=== PATIENT | male | born 1945 | race Caucasian/White ===

== ENCOUNTER → 2018-05-31 12:07 | Outpatient (CLI) | payer MEDICARE, SELFPAY ==
--- NOTE | 2018-05-31 12:10 | RAD_ITS ---
STUDY: X-RAY - LUMBAR SPINE REASON FOR EXAM: Male, 72 years old. Lower back pain. Bilateral hip pain. TECHNIQUE: 5 view(s) of the lumbar spine were obtained. COMPARISON: None FINDINGS: Normal lumbar lordosis. There is no substantial scoliosis. There is a normal alignment of the vertebrae. There is diffuse demineralization with multi-level endplate spondylosis. There is multi-level degenerative disc disease with multi-level disc space narrowing. There is no evidence of acute fracture or loss of vertebral axial height. There is no demonstrated spondylolysis of the pars interarticulares. There is atherosclerotic calcification of the abdominal aorta without a demonstrated aneurysm. RAD/L/S Spine Min 4 Views IMPRESSION: Degenerative changes of the lumbar spine without acute fracture or dislocation. Electronically Signed: Eren Finney DO at 20:15 EDT Tel [phone], Service support ,
== END ==
PROVIDERS: Family Provider Family Medicine; PCP Family Medicine; Visit Provider Nurse Practitioner Family
DX: M54.5 Low back pain (principal)
CPT/HCPCS: 72110

== ENCOUNTER → 2018-06-06 11:24 | Outpatient (CLI) | payer MEDICARE, SELFPAY ==
--- NOTE | 2018-06-06 11:31 | RAD_ITS ---
STUDY: X-RAY - LEFT HUMERUS REASON FOR EXAM: Mid humeral pain, fall a few days ago. TECHNIQUE: 2 view(s) of the humerus. COMPARISON: None. FINDINGS: Normal visualized humerus. There is no demonstrated fracture or osseous destructive process with skin folds on the AP views creating lucency overlying the medial aspect of the mid humeral diaphysis but clearly extending past the margins of the humerus. There is no demonstrated soft tissue abnormality. RAD/Humerus min 2 Views IMPRESSION: No demonstrated humeral fracture. Electronically Signed: Storm Guerra MD at 12:30 EDT Tel , Service support ,
== END ==
PROVIDERS: Family Provider Family Medicine; PCP Family Medicine; Visit Provider Family Medicine
DX: M79.602 Pain in left arm (principal)
CPT/HCPCS: 73060

== ENCOUNTER → 2018-11-15 09:01 | Outpatient (CLI) | payer MEDICARE, SELFPAY ==
[2018-11-15 12:32] LABS: Absolute Lymphocyte Count 1.33 X10^3/ul (0.83-4.51); Absolute Neutrophil Count 1.6 X10^3/uL (2.0-7.7); Basophil# 0.01 X10^3/uL; Basophil% 0.3 % (0-1); Eosinophil# 0.12 X10^3/uL; Eosinophils% 3.4 % (0-5); Hematocrit 44.9 % (40-54); Hemoglobin 15.1 g/dl (13.0-16.5); Lymphocyte # 1.33 X10^3/ul (4.0); Lymphocyte % 37.6 % (19-41); Mean Corp Hgb Conc 33.6 g/gl (32-36); Mean Corpuscular Hgb 30.6 pg (27.0-32.0); Mean Corpuscular Volume 91.1 fL (80-94); Mean Platelet Vol. 10.5 fl (6.2-12.0); Monocyte% 14.1 % (0-10); Neutrophil # 1.57 X10^3/uL (2.7-7.7); Neutrophil % 44.3 % (47-70); Platelet Count 202 K/mm3 (150-450); RBC Distribution Width CV 13.8 % (11.6-14.6); RBC Distribution Width SD 45.6 fl (35.1-43.9); Red Blood Count 4.93 M/mm3 (4.6-6.2); White Blood Count 3.5 K/mm3 (4.4-11.0)
[2018-11-15 12:33] LABS: POSITIVE COUNT NO; POSITIVE DIFFERENTIAL NO; POSITIVE MORPHOLOGY NO
[2018-11-15 12:40] LABS: Anion Gap 9 (5-15); BUN 14 mg/dL (7-18); BUN/Creat Ratio 14.8 RATIO (10-20); Calcium,Total 8.8 mg/dL (8.5-10.1); Chloride 110 mmol/L (98-107); Creatinine, Serum 0.95 mg/dL (0.70-1.30); EST Glomerular Filtration Rate 83 mL/min (>60); Est Glom Filt Rate - Afr Amer 100 mL/min (>60); Glucose 92 mg/dL (74-106); Potassium 3.7 mmol/L (3.5-5.1); Sodium Level 143 mmol/L (136-145)
== END ==
PROVIDERS: Family Provider Family Medicine; PCP Family Medicine; Visit Provider Family Medicine
DX: K92.2 Gastrointestinal hemorrhage, unspecified (principal); R53.83 Other fatigue
CPT/HCPCS: 36415; 80048; 85025

== ENCOUNTER → 2018-12-27 09:53 | Outpatient (CLI) | payer MEDICARE, SELFPAY ==
[2018-12-28 16:54] LABS: Giardia Lamblia, Stool EIA Negative (Negative)
== END ==
PROVIDERS: Family Provider Family Medicine; PCP Family Medicine; Referring Provider Family Medicine; Visit Provider Family Medicine
DX: R19.7 Diarrhea, unspecified (principal)
CPT/HCPCS: 82274; 83630; 87329; 87493; 87506

== ENCOUNTER → 2019-03-01 | Outpatient (CLI) | payer MEDICARE, SELFPAY | END | disposition home or self-care (01) | PROVIDERS: Family Provider Family Medicine; PCP Family Medicine; Visit Provider Family Medicine | DX: I10 Essential (primary) hypertension (principal); E78.5 Hyperlipidemia, unspecified; E55.9 Vitamin D deficiency, unspecified ==

== ENCOUNTER → 2019-03-14 08:53 | Outpatient (CLI) | payer MEDICARE, SELFPAY ==
[2019-03-14 12:37] LABS: ALB/GLOB Ratio 1.2 RATIO (0.9-2.4); AST(SGOT) 32 U/L (15-37); Alanine Aminotransfer ALT/SGPT 54 U/L (16-61); Albumin, Serum 3.8 g/dL (3.2-5.0); Alkaline Phosphatase 48 U/L (45-117); Anion Gap 5 (5-15); BUN 14 mg/dL (7-18); BUN/Creat Ratio 16.3 RATIO (10-20); Chloride 109 mmol/L (98-107); Cholesterol 250 mg/dL (200); Creatinine, Serum 0.86 mg/dL (0.70-1.30); EST Glomerular Filtration Rate 93 mL/min (>60); Est Glom Filt Rate - Afr Amer 112 mL/min (>60); Globulin 3.2 g/dL (2.2-4.2); Glucose 87 mg/dL (74-106); High Density Lipoprotein 59 mg/dL; Potassium 3.7 mmol/L (3.5-5.1); Sodium Level 139 mmol/L (136-145); Triglycerides 186 mg/dL; Very Low Density Lipoprotein 37 mg/dL (5-40)
[2019-03-14 12:39] LABS: Vitamin D,25 Hydroxy 35.5 ng/mL (29.95-100.01)
== END ==
PROVIDERS: Family Provider Family Medicine; PCP Family Medicine; Visit Provider Family Medicine
DX: I10 Essential (primary) hypertension (principal); E78.5 Hyperlipidemia, unspecified; E55.9 Vitamin D deficiency, unspecified
CPT/HCPCS: 36415; 80053; 80061; 82306

== ENCOUNTER 2019-06-05 21:48 | Emergency (ER) | payer MEDICARE, SELFPAY ==
[2019-06-05 21:50] VITALS: BP 135/105; PULSE 101; RESP 18; TEMP 36.6; O2SAT 94; BMI 30.7
[2019-06-05 23:02] VITALS: PULSE 86; O2SAT 96
--- NOTE | 2019-06-05 23:27 | ED.DCSUM_ITS ---
- ER Visit Summary Date of Service: 06/05/19 Chief Complaint: Bilateral leg pain History of Present Illness: The patient is a 73 M presenting with bilateral leg pain. Patient states this has been ongoing for the past 3 years. He is scheduled to see a seater assembler in 2 weeks. His primary care physician has been treating him for polymyalgia rheumatica. He was previously taking tramadol he states that this intermittently has helped him but he has run out of this medication. He denies any new injury. He is able to ambulate with pain. He denies fever. Denies chest pain or shortness of breath. Denies other complaints. Physical Examination: Vitals are stable. Patient is afebrile. Alert no acute distress. HEENT exam is unremarkable. Neck is supple. Lungs are clear and equal bilaterally. Heart is regular rate and rhythm. Abdomen is soft nontender nondistended. Extremities are unremarkable. Normal distal pulses Skin is warm and dry. No rash No focal neurologic deficit. Normal strength and sensation Remainder of exam is unremarkable. Emergency Department Course and Treatment: Patient was given morphine, Zofran IV. Pelvis x-ray shows no fracture, acute disease, or significant arthritis. Atherosclerotic calcifications. On reevaluation patient's pain is controlled. He is given a prescription for tramadol. He is advised to follow-up with rheumatology as scheduled. Advised to return to the ED for worsening complai nts. Disposition: Discharge home Impression: Polymyalgia rheumatica This note was generated with [employer] dictation software. It may contain incorrect words, spelling, and punctuation that were not noted in review of the chart prior to signing ED Disposition - Plan for ED Patient: Instructions: Muscle Spasm Prescriptions: traMADol [Ultram] 50 mg PO Q6H PRN PRN 3 Days #20 tab PRN Reason: Pain Prescription Printed Referrals: Thor Eason MD [Primary Care Provider] -
[2019-06-05] MEDS: Morphine 4 MG/ML Syringe IV (23:43)
[2019-06-05] MEDS: Ondansetron 4 MG/2 ML Vial IV (23:43)
--- NOTE | 2019-06-05 23:50 | RAD_ITS ---
HISTORY: bilateral leg swelling and pain for years, patient to see vitreo retinal surgeon soon EXAMINATION/TECHNIQUE: XR Pelvis 1 View COMPARISON: [facility] 10/03/2015 FINDINGS: No fracture, acute disease, or suspicious bony lesion. The SI joints and hip joints appear preserved. Pelvic phleboliths. Radiopaque material at the prostate region compatible with brachytherapy. Atherosclerotic calcifications. RAD/Pelvis 1 or 2 Views IMPRESSION: 1. No fracture, acute disease, or significant arthritis. 2. Atherosclerotic calcifications. at 0023 Reported and signed by: Moisés Johnson MD Electronically Signed: Moisés Johnson, at 0:22 EDT Tel , Service support ,
--- NOTE | 2019-06-06 00:44 | ED.DEP ---
ED Disposition - Plan for ED Patient: Instructions: Muscle Spasm Prescriptions: traMADol [Ultram] 50 mg PO Q6H PRN PRN 3 Days #20 tablet PRN Reason: Pain Referrals: Thor Eason MD [Primary Care Provider] -
[2019-06-06 01:03] VITALS: BP 123/77; PULSE 83; RESP 18; O2SAT 93
== END 2019-06-06 01:04 | disposition home or self-care (01) ==
PROVIDERS: Emergency Provider Emergency Medicine; Family Provider Family Medicine; PCP Family Medicine
DX: M35.3 Polymyalgia rheumatica (principal); Z79.891 Long term (current) use of opiate analgesic
CPT/HCPCS: 72170; 96374; 96375; 99283; A4216; J2405

== ENCOUNTER → 2019-06-28 | Outpatient (CLI) | payer MEDICARE, SELFPAY ==
[2019-06-05 21:50] VITALS: BMI 30.7
== END | disposition home or self-care (01) ==
PROVIDERS: Family Provider Family Medicine; PCP Family Medicine; Referring Provider Dermatology; Visit Provider Dermatology
DX: T81.40XA Infection following a procedure, unspecified, initial encounter (principal)
CPT/HCPCS: 87070; 87077; 87186; 87205

== ENCOUNTER → 2019-07-14 | Outpatient (CLI) | payer MEDICARE, SELFPAY ==
[2019-07-14 13:21] LABS: Thyroid Stim Hormone (TSH) 1.13 uIU/mL (0.358-3.74); Uric Acid 5.9 mg/dL (3.5-7.2)
[2019-07-14 13:22] LABS: Vitamin D,25 Hydroxy 44.8 ng/mL (29.95-100.01)
== END | disposition home or self-care (01) ==
LOC: BFHLAB 08:42
PROVIDERS: Family Provider Family Medicine; PCP Family Medicine; Visit Provider Family Medicine
DX: E55.9 Vitamin D deficiency, unspecified (principal); M10.9 Gout, unspecified; R68.82 Decreased libido; E78.5 Hyperlipidemia, unspecified
CPT/HCPCS: 36415; 82306; 84403; 84443; 84550

== ENCOUNTER → 2019-09-06 | Outpatient (CLI) | payer MEDICARE, SELFPAY ==
--- NOTE | 2019-09-06 12:22 | RAD_ITS ---
STUDY: X-RAY CHEST REASON FOR EXAM: Male, 73 years old. SOB, low grade fever. TECHNIQUE: PA and lateral chest. COMPARISON: None. FINDINGS: Mild scarring in the left base. The lungs are otherwise clear. There is no demonstrated pleural abnormality. Normal size heart. Normal mediastinum and emiliano. Normal visualized pulmonary arteries. Normal visualized aortic arch and descending thoracic aorta. Normal visualized thoracic spine. Normal visualized ribs, clavicles, and shoulders. There is no demonstrated abnormality of the visualized soft tissue structures of the upper abdomen. RAD/Chest PA and Lateral IMPRESSION: Minimal scarring on the left, otherwise negative study. Electronically Signed: Oralia Bay MD at 20:38 EST Tel , Service support ,
== END | disposition home or self-care (01) ==
LOC: MTRAD 12:20
PROVIDERS: Family Provider Family Medicine; PCP Family Medicine; Referring Provider Family Medicine; Visit Provider Family Medicine
DX: J18.9 Pneumonia, unspecified organism (principal)
CPT/HCPCS: 71046

== ENCOUNTER → 2019-12-15 | Outpatient (CLI) | payer MEDICARE, SELFPAY ==
--- NOTE | 2019-12-15 09:01 | RAD_ITS ---
STUDY: X-RAY - ESOPHAGUS (BARIUM SWALLOW) WITH FLUOROSCOPY REASON FOR EXAM: Male, 74 years old. Dysphagia -- had back surgery Oct 03, 2019, swallowing problems started after surgery -- feels like a lump/ and quot; catch and quot; /funny sensation mid throat around C4 TECHNIQUE: 14 view(s) of the esophagus were obtained following swallowing of barium. FLUOROSCOPY TIME (if supplied): (0:30) minutes/seconds COMPARISON: None. FINDINGS: There is no demonstrated esophageal foreign body. There is no demonstrated stricture or mucosal abnormality. Normal gastroesophageal junction, without a demonstrated hiatal hernia. The patient ingested a 12 mm tablet of barium without any difficulty. There is atherosclerotic calcification of the aortic arch with tortuosity of the descending aorta. Normal visualized pulmonary parenchyma. Normal visualized osseous structures of the thorax. RAD/Esophagus Single Contrast IMPRESSION: Normal plain film x-ray examination (barium swallow) of the esophagus. Electronically Signed: Dima Baca, at 10:23 EST , Service support ,
== END | disposition home or self-care (01) ==
LOC: RAD 08:59
PROVIDERS: PCP Family Medicine; Referring Provider Otolaryngology; Visit Provider Otolaryngology
DX: R13.10 Dysphagia, unspecified (principal)
CPT/HCPCS: 74220; 74221

== ENCOUNTER → 2020-06-21 | Outpatient (CLI) | payer MEDICARE, SELFPAY ==
[2020-06-21 15:21] LABS: Absolute Lymphocyte Count 1.51 X10^3/uL (0.83-4.51); Absolute Neutrophil Count 6.1 X10^3/uL (2.0-7.7); Basophil# 0.03 X10^3/uL; Basophil% 0.3 % (0-1); Eosinophils% 2.2 % (0-5); Hematocrit 38.1 % (40-54); Hemoglobin 12.6 g/dL (13.0-16.5); Lymphocyte # 1.51 X10^3/ul (4.0); Lymphocyte % 16.3 % (19-41); Mean Corp Hgb Conc 33.1 g/dL (32-36); Mean Corpuscular Hgb 30.8 pg (27.0-32.0); Mean Corpuscular Volume 93.2 fL (80-94); Mean Platelet Vol. 9.6 fl (6.2-12.0); NRBC Flagged by Analyzer 0 % (0-5); Neutrophil % 65.8 % (47-70); Platelet Count 340 K/mm3 (150-450); RBC Distribution Width CV 13.5 % (11.6-14.6); RBC Distribution Width SD 45.9 fl (35.1-43.9); Red Blood Count 4.09 M/mm3 (4.6-6.2); White Blood Count 9.3 K/mm3 (4.4-11.0)
[2020-06-21 15:39] LABS: Ferritin 522 ng/mL (26-388); Iron 36 ug/dL (65-175)
== END | disposition home or self-care (01) ==
LOC: BFHLAB 11:52
PROVIDERS: PCP Family Medicine; Visit Provider Family Medicine
DX: D64.9 Anemia, unspecified (principal); K92.1 Melena
CPT/HCPCS: 36415; 82728; 83540; 85025

== ENCOUNTER → 2020-07-10 | Outpatient (CLI) | payer MEDICARE, SELFPAY ==
[2020-07-10 12:38] LABS: Ferritin 280 ng/mL (26-388); Iron 67 ug/dL (65-175)
[2020-07-10 12:41] LABS: Absolute Lymphocyte Count 1.27 X10^3/uL (0.83-4.51); Absolute Neutrophil Count 3.3 X10^3/uL (2.0-7.7); Basophil# 0.02 X10^3/uL; Basophil% 0.3 % (0-1); Eosinophil# 0.55 X10^3/uL; Eosinophils% 9.3 % (0-5); Hematocrit 39.2 % (40-54); Hemoglobin 12.5 g/dL (13.0-16.5); Lymphocyte # 1.27 X10^3/ul (4.0); Lymphocyte % 21.5 % (19-41); Mean Corp Hgb Conc 31.9 g/dL (32-36); Mean Corpuscular Hgb 29.1 pg (27.0-32.0); Mean Corpuscular Volume 91.4 fL (80-94); Mean Platelet Vol. 9.9 fl (6.2-12.0); Monocyte# 0.73 X10^3/uL; Monocyte% 12.4 % (0-10); NRBC Flagged by Analyzer 0 % (0-5); Neutrophil # 3.32 X10^3/uL (2.7-7.7); Neutrophil % 56.2 % (47-70); Platelet Count 270 K/mm3 (150-450); RBC Distribution Width SD 47.1 fl (35.1-43.9); Red Blood Count 4.29 M/mm3 (4.6-6.2); White Blood Count 5.9 K/mm3 (4.4-11.0)
== END | disposition home or self-care (01) ==
LOC: BFHLAB 10:31
PROVIDERS: PCP Family Medicine; Visit Provider Family Medicine
DX: D64.9 Anemia, unspecified (principal)
CPT/HCPCS: 36415; 82728; 83540; 85025

== ENCOUNTER → 2020-10-08 13:53 | Outpatient (CLI) | payer MEDICARE, SELFPAY ==
[2020-10-08 15:08] LABS: Absolute Lymphocyte Count 1.91 X10^3/uL (0.83-4.51); Absolute Neutrophil Count 2.3 X10^3/uL (2.0-7.7); Basophil# 0.02 X10^3/uL; Basophil% 0.4 % (0-1); Eosinophil# 0.26 X10^3/uL; Eosinophils% 5.1 % (0-5); Hematocrit 47.8 % (40-54); Hemoglobin 15.8 g/dL (13.0-16.5); Lymphocyte # 1.91 X10^3/ul (4.0); Lymphocyte % 37.2 % (19-41); Mean Corp Hgb Conc 33.1 g/dL (32-36); Mean Corpuscular Hgb 29.5 pg (27.0-32.0); Mean Corpuscular Volume 89.2 fL (80-94); Mean Platelet Vol. 10.2 fl (6.2-12.0); Monocyte% 11.7 % (0-10); NRBC Flagged by Analyzer 0 % (0-5); Neutrophil # 2.33 X10^3/uL (2.7-7.7); Neutrophil % 45.4 % (47-70); Platelet Count 197 K/mm3 (150-450); RBC Distribution Width CV 14.3 % (11.6-14.6); RBC Distribution Width SD 46.1 fl (35.1-43.9); Red Blood Count 5.36 M/mm3 (4.6-6.2); White Blood Count 5.1 K/mm3 (4.4-11.0)
[2020-10-08 16:01] LABS: ALB/GLOB Ratio 1.3 RATIO (0.9-2.4); AST(SGOT) 34 U/L (15-37); Alanine Aminotransfer ALT/SGPT 55 U/L (16-61); Albumin, Serum 3.9 g/dL (3.2-5.0); Alkaline Phosphatase 71 U/L (45-117); Anion Gap 6 (5-15); BUN 18 mg/dL (7-18); BUN/Creat Ratio 19.5 RATIO (10-20); Calcium,Total 9.4 mg/dL (8.5-10.1); Chloride 108 mmol/L (98-107); Cholesterol 180 mg/dL (200); Creatinine, Serum 0.92 mg/dL (0.70-1.30); EST Glomerular Filtration Rate 85 mL/min (>60); Est Glom Filt Rate - Afr Amer 103 mL/min (>60); Glucose 89 mg/dL (74-106); High Density Lipoprotein 54 mg/dL; Potassium 3.9 mmol/L (3.5-5.1); Protein, Total 6.9 g/dL (6.4-8.2); Sodium Level 140 mmol/L (136-145); Triglycerides 123 mg/dL; Uric Acid 4.9 mg/dL (3.5-7.2); Very Low Density Lipoprotein 25 mg/dL (5-40)
[2020-10-08 16:06] LABS: Vitamin D,25 Hydroxy 37.8 ng/mL
== END ==
PROVIDERS: PCP Family Medicine; Visit Provider Family Medicine
DX: I25.10 Atherosclerotic heart disease of native coronary artery without angina pectoris (principal); E55.9 Vitamin D deficiency, unspecified; E78.5 Hyperlipidemia, unspecified; M10.9 Gout, unspecified
CPT/HCPCS: 36415; 80053; 80061; 82306; 84550; 85025

== ENCOUNTER → 2020-11-28 14:16 | Outpatient (CLI) | payer MEDICARE, SELFPAY ==
--- NOTE | 2020-11-28 14:32 | CT_ITS ---
STUDY: CT RIGHT LOWER EXTREMITY REASON FOR EXAM: Right knee osteoarthritis, surgical planning. TECHNIQUE: Transaxial CT imaging of the lower extremity was performed. Coronal and sagittal images were reformatted. Individualized dose optimization techniques were used for this CT. COMPARISON: None. FINDINGS: Knee: Normal medial femoral condyle and medial tibial plateau. There is moderate to severe joint space narrowing of the articular joint space of the medial knee compartment. Normal lateral femoral condyle and lateral tibial plateau. There are minimal marginal osteophytes with preservation of the articular joint space of the lateral knee compartment. There is mild to moderate joint space narrowing of the lateral aspect of the patellofemoral articulation (axial image 331). Normal proximal tibiofibular articulation. There is a small joint effusion. The quadriceps tendon is grossly normal. The patellar tendon is grossly normal. Normal Hoffa''s fat pad. There is vascular calcification. Hip: There are small marginal osteophytes and mild joint space narrowing of the right hip articulation (coronal reconstruction 75). Ankle: Normal tibiotalar, posterior subtalar, talonavicular and calcaneocuboid articulations. CT/Extremity Lower without Contra IMPRESSION: Arthrosis of the medial femorotibial and patellofemoral compartments. Electronically Signed: Storm Guerra MD at 14:56 EST Tel , Service support ,
== END ==
PROVIDERS: PCP Family Medicine; Visit Provider Orthopaedic Surgery
DX: M17.11 Unilateral primary osteoarthritis, right knee (principal)
CPT/HCPCS: 73700

== ENCOUNTER 2020-12-16 07:16 | Observation (INO) | payer MEDICARE, SELFPAY ==
--- NOTE | 2020-11-28 14:39 | EKG12_ITS ---
Test Reason : PRE SURGERY Blood Pressure : / mmHG Vent. Rate : 057 BPM Atrial Rate : 057 BPM P-R Int : 168 ms QRS Dur : 108 ms QT Int : 442 ms P-R-T Axes : 038 -45 035 degrees QTc Int : 430 ms Sinus bradycardia with sinus arrhythmia Left anterior fascicular block Abnormal ECG Confirmed by RL FELICIANO, MOHAN ([id number]), general expeditor DANIEL RIVER ([id number]) on 12/02/2020 10:44:53 AM Referred By: Castillo Michael Confirmed By:MAYELA SHINE MD
[2020-11-28 14:54] LABS: Absolute Lymphocyte Count 2.35 X10^3/uL (0.83-4.51); Absolute Neutrophil Count 2.5 X10^3/uL (2.0-7.7); Basophil# 0.02 X10^3/uL; Basophil% 0.3 % (0-1); Eosinophil# 0.28 X10^3/uL; Eosinophils% 4.7 % (0-5); Hematocrit 47.7 % (40-54); Hemoglobin 15.9 g/dL (13.0-16.5); Lymphocyte # 2.35 X10^3/ul (4.0); Lymphocyte % 39.6 % (19-41); Mean Corp Hgb Conc 33.3 g/dL (32-36); Mean Corpuscular Hgb 29.3 pg (27.0-32.0); Monocyte# 0.77 X10^3/uL; NRBC Flagged by Analyzer 0 % (0-5); Neutrophil % 42.1 % (47-70); Platelet Count 219 K/mm3 (150-450); RBC Distribution Width CV 14.9 % (11.6-14.6); RBC Distribution Width SD 47.6 fl (35.1-43.9); Red Blood Count 5.42 M/mm3 (4.6-6.2); White Blood Count 5.9 K/mm3 (4.4-11.0)
[2020-11-28 15:31] LABS: Anion Gap 3 (5-15); BUN 18 mg/dL (7-18); BUN/Creat Ratio 19.6 RATIO (10-20); Calcium,Total 9.2 mg/dL (8.5-10.1); Chloride 108 mmol/L (98-107); Creatinine, Serum 0.92 mg/dL (0.70-1.30); EST Glomerular Filtration Rate 85 mL/min (>60); Est Glom Filt Rate - Afr Amer 103 mL/min (>60); Glucose 82 mg/dL (74-106); Potassium 3.8 mmol/L (3.5-5.1); Sodium Level 140 mmol/L (136-145)
[2020-12-13 09:41] LABS: International Normalized Ratio 1.2; Prothrombin Time (Protime)PT. 14.3 SECONDS (11.7-14.9)
[2020-12-13 09:42] LABS: Partial Thromboplast Time 27.7 Seconds (24.1-36.2)
[2020-12-13 09:58] LABS: AST(SGOT) 32 U/L (15-37); Alanine Aminotransfer ALT/SGPT 47 U/L (16-61); Albumin, Serum 3.8 g/dL (3.2-5.0); Alkaline Phosphatase 69 U/L (45-117); Bilirubin, Direct 0.16 mg/dL (0.00-0.30); Protein, Total 6.8 g/dL (6.4-8.2)
[2020-12-16] VITALS (13 sets, daily range): BP systolic 83–133; BP diastolic 57–84; PULSE 59–77; RESP 16–18; TEMP 36.5–36.9; O2SAT 95–100; BMI 30.4
[2020-12-16] MEDS: Lactated Ringers 1,000 ML 75 ML IV (06:24)
[2020-12-16] MEDS: Gabapentin 600 MG Tablet PO (06:27)
[2020-12-16] MEDS: Acetaminophen 500 MG Tablet 1000 MG PO ×3 (06:28→20:04)
[2020-12-16 06:35] LABS: Magnesium 2.4 mg/dL (1.6-2.6)
[2020-12-16 06:55] LABS: Bedside Glucose 96 mg/dL (70-110)
[2020-12-16] MEDS: Cefazolin 2 GM in 0.9% Normal Saline 100 ML IV (07:26)
--- NOTE | 2020-12-16 07:30 | KNEE_PTH ---
PATIENT: MYNOR CHIN LOC: MS3 U#:[id number] AGE/SX: 75/M [place] [facility] [place]: Dr. Castillo Michael DO : 1945 BED: 1 DIS: 12/17/2020 SPEC #: [id number] RECD: 12/16/20 09:20 STATUS: KASH REChelsey #: [id number] KRYSTAL: 12/16/20 07:[address]: Castillo Michael DEPT: SURGICAL PATHOLOGY RECD BY: Darya Tate ENTERED: 12/16/20 10:23 SP TYPE: TOTAL KNEE OTHR DR: Dr. Thor Eason MD Tissues: Knee, NOS Procedures: Decalcification bone/plaque Surgery Specimen Level IV HEADER OPERATION: ERAS, total knee replacement robotic arm assist PRE-OP DIAGNOSIS: Primary osteoarthritis TISSUE SUBMITTED: Right knee bone MICROSCOPIC DIAGNOSIS Bone and soft tissue of right knee, total knee resection: Consistent with degenerative joint disease. AM:alejo 12/19/2020 MICROSCOPIC DESCRIPTION Slides are reviewed. GROSS DESCRIPTION Received is one container designated bone and soft tissue right knee. The specimen consists of multiple fragments of yoon-yellow bone measuring in aggregate 15 x 12 x 1.5 cm. Also in the specimen container are multiple fragments of yellow-white soft tissue measuring in aggregate 2 x 2 x 0.8 cm. A number of bony fragments contain articular surfaces consistent with tibial plateau and femoral condyle and displaying prominent osteophyte formation, eburnation, and bone erosion. Stripper Black And White sections are submitted in two cassettes as follows: 1 - soft tissue, 2 - bone after decalcification. / AM:alejo 12/16/20 TC:[facility]: [id number]
--- NOTE | 2020-12-16 08:52 | OP.PCM_ITS ---
Report of Operation Date of Procedure: 12/16/20 Pre-Operative Diagnosis: OA right knee Post-Operative Diagnosis: same Surgery/Procedure Performed:: Right TKR consultant [employer]. vice president [employer] (ex ): Michael De La Cruz Type of Anesthesia:: General/Regional Anesthesiologist: Colin Fernandez Specimen's removed: bone Estimated Blood Loss (mL): 20 cc Fluids Replaced: 1000 cc crystalloid - Admit VTE Documentation VTE Present on Admission: No VTE Mechan Device Prophylaxis: SCD's, Thigh High GINGER Hose VTE Pharm Prophylaxis ordered?: Yes
--- NOTE | 2020-12-16 09:38 | RAD_ITS ---
STUDY: X-RAY - RIGHT KNEE REASON FOR EXAM: Postop right total knee arthroplasty. TECHNIQUE: 2 view(s) of the knee. COMPARISON: CT images 11/20/2020. FINDINGS: There is a right total knee arthroplasty without evidence of complication. There is postoperative gas in the soft tissues and overlying skin jennifer. There is vascular calcification. RAD/Knee 1 or 2 Views IMPRESSION: Uncomplicated right total knee arthroplasty. Electronically Signed: Storm Guerra MD at 10:17 EST Tel , Service support ,
[2020-12-16] MEDS: Lactated Ringers 1,000 ML 125 ML IV (10:16)
[2020-12-16 10:18] LABS: Hematocrit 40.9 % (40-54); Hemoglobin 13.5 g/dL (13.0-16.5); Mean Corpuscular Volume 90.9 fL (80-94); Mean Platelet Vol. 9.7 fl (6.2-12.0); Platelet Count 175 K/mm3 (150-450); RBC Distribution Width CV 14.6 % (11.6-14.6); RBC Distribution Width SD 49.1 fl (35.1-43.9); White Blood Count 5.6 K/mm3 (4.4-11.0)
[2020-12-16 10:35] LABS: Anion Gap 6 (5-15); BUN 16 mg/dL (7-18); BUN/Creat Ratio 14.8 RATIO (10-20); Calcium,Total 8.4 mg/dL (8.5-10.1); Chloride 110 mmol/L (98-107); Creatinine, Serum 1.08 mg/dL (0.70-1.30); EST Glomerular Filtration Rate 71 mL/min (>60); Est Glom Filt Rate - Afr Amer 86 mL/min (>60); Estimated Creatinine Clearance 58.19 ml/min; Glucose 119 mg/dL (74-106); Potassium 3.8 mmol/L (3.5-5.1); Sodium Level 141 mmol/L (136-145)
[2020-12-16] MEDS: Multivitamin (Healthy Eyes) Capsule 1 CAP PO (13:50)
[2020-12-16] MEDS: Lactated Ringers 1,000 ML 100 ML IV (13:52)
[2020-12-16] MEDS: Cefazolin 1 GM/50 ML BAG IV ×2 (17:38→23:10)
[2020-12-16] MEDS: Senna/Docusate Sodium 1 Tablet 2 TABLET PO (21:21)
[2020-12-16] MEDS: Tamsulosin HCl 0.4 MG Capsule PO (21:21)
[2020-12-16] MEDS: Aspirin 81 MG TAB.CHEW PO (21:21)
[2020-12-16] MEDS: Metoprolol Tartrate 25 MG Tablet PO (21:21)
[2020-12-16] MEDS: Atorvastatin Calcium 40 MG Tablet PO (23:11)
[2020-12-16] MEDS: oxyCODONE 5 MG Tablet PO (23:11)
[2020-12-16] MEDS: 0.9% NaCl Peripheral Flush Adult/Peds IV (23:15)
[2020-12-17 02:53] VITALS: BP 114/62; PULSE 78; RESP 16; TEMP 36.8; O2SAT 94
[2020-12-17] MEDS: Acetaminophen 500 MG Tablet 1000 MG PO ×2 (04:11→11:56)
[2020-12-17] MEDS: oxyCODONE 5 MG Tablet PO ×3 (04:11→14:15)
[2020-12-17] MEDS: 0.9% NaCl Peripheral Flush Adult/Peds IV (04:12)
[2020-12-17 05:51] LABS: Hematocrit 39.5 % (40-54); Hemoglobin 12.9 g/dL (13.0-16.5); Mean Corp Hgb Conc 32.7 g/dL (32-36); Mean Corpuscular Hgb 29.6 pg (27.0-32.0); Mean Corpuscular Volume 90.6 fL (80-94); Mean Platelet Vol. 9.6 fl (6.2-12.0); Platelet Count 151 K/mm3 (150-450); RBC Distribution Width CV 14.6 % (11.6-14.6); RBC Distribution Width SD 48.6 fl (35.1-43.9); Red Blood Count 4.36 M/mm3 (4.6-6.2); White Blood Count 6.4 K/mm3 (4.4-11.0)
[2020-12-17 06:21] LABS: Anion Gap 5 (5-15); BUN 17 mg/dL (7-18); BUN/Creat Ratio 18.7 RATIO (10-20); Calcium,Total 8.3 mg/dL (8.5-10.1); Chloride 108 mmol/L (98-107); Creatinine, Serum 0.91 mg/dL (0.70-1.30); EST Glomerular Filtration Rate 86 mL/min (>60); Est Glom Filt Rate - Afr Amer 104 mL/min (>60); Estimated Creatinine Clearance 69.06 ml/min; Glucose 106 mg/dL (74-106); Potassium 3.9 mmol/L (3.5-5.1); Sodium Level 138 mmol/L (136-145)
--- NOTE | 2020-12-17 07:29 | PN.ORTHO_ITS ---
Subjective: Patient sitting at bedside, patient states pain is been well managed. Patient denies any chest pain, shortness of breath, calf pain, nausea vomiting. Patient has no other complaints at this time. Patient states she is ready for discharge home. Objective: Dressings clean dry intact. Negative signs and symptoms of DVT. Patient is afebrile. I did review the labs and vital signs all which were noted in the medical record. Patient neurovascular is otherwise intact. Patient is in no respiratory distress, speaking in full sentences. - Physical Exam Vitals/I&O's: Vital Signs Temp Pulse Resp BP Pulse Ox 98.2 F 78 16 114/62 94 12/17/20 02:53 12/17/20 02:53 12/17/20 02:53 12/17/20 02:53 12/17/20 02:53 Oxygen Flow Rate (L/min) 6 Oxygen Delivery Method Room Air Weight: 93.5 kg Body Mass Index (BMI) 30.4 Intake and Output for Last 24 Hours 12/15/20 12/16/20 12/17/20 23:59 23:59 23:59 Intake Total 3530.5 / 3530.5 55 / 55 Balance 3530.5 / 3530.5 55 / 55 General: Alert, Oriented x3, Cooperative HEENT: PERRLA Oral: Moist Mucosa Neurological: Cranial nerves II-XII grossly intact Psych/Mental Status: Normal Affect, Alert and oriented to time, place, person, mood and affect Laboratory Results 12/16/20 10:10: WBC 5.6, RBC 4.50 L, Hgb 13.5, Hct 40.9, MCV 90.9, MCH 30.0, MCHC 33.0, RDW Std Deviation 49.1 H, RDW Coeff of Benjamin 14.6, Plt Count 175, MPV 9.7 12/16/20 10:10: Sodium 141, Potassium 3.8, Chloride 110 H, Carbon Dioxide 25.0, Anion Gap 6, BUN 16, Creatinine 1.08, Estim Creat Clear Calc 58.19, Est GFR (MDRD) Af Amer 86, Est GFR (MDRD) Non-Af 71, BUN/Creatinine Ratio 14.8, Glucose 119 H, Calcium 8.4 L 12/17/20 05:35: WBC 6.4, RBC 4.36 L, Hgb 12.9 L, Hct 39.5 L, MCV 90.6, MCH 29.6, MCHC 32.7, RDW Std Deviation 48.6 H, RDW Coeff of Benjamin 14.6, Plt Count 151, MPV 9.6 12/17/20 05:35: Sodium 138, Potassium 3.9, Chloride 108 H, Carbon Dioxide 25.0, Anion Gap 5, BUN 17, Creatinine 0.91, Estim Creat Clear Calc 69.06, Est GFR (MDRD) Af Amer 104, Est GFR (MDRD) Non-Af 86, BUN/Creatinine Ratio 18.7, Glucose 106, Calcium 8.3 L Current Medications Acetaminophen (Acetaminophen 500 Mg Tablet) 1,000 mg PO Q8H [facility] Last Admin: 12/17/20 04:11 Dose: 1,000 mg Documented by: Allopurinol (Allopurinol 100 Mg Tablet) [facility] Aspirin (Aspirin 81 Mg Tab.Chew) 81 mg PO BID [facility] Last Admin: 12/16/20 21:21 Dose: 81 mg Documented by: Atorvastatin Calcium (Atorvastatin Calcium 40 Mg Tablet) 40 mg PO QHS [facility] Last Admin: 12/16/20 23:11 Dose: 40 mg Documented by: Cholecalciferol (Cholecalciferol (Vit D3) 1,000 Unit (25mcg)) 5,000 unit PO DAILY [facility] Lactated Ringer's () 1,000 mls @ 100 mls/hr IV .Q10H [facility] Last Admin: 12/17/20 04:59 Dose: Not Given Documented by: Metoprolol Tartrate (Metoprolol Tartrate 25 Mg Tablet) 25 mg PO BID [facility] Last Admin: 12/16/20 21:21 Dose: 25 mg Documented by: Multivitamins/Minerals (Multivitamin (Healthy Eyes) Capsule) 1 capsule PO DAILY [facility] Last Admin: 12/16/20 13:50 Dose: 1 capsule Documented by: Ondansetron HCl (Ondansetron 4 Mg/2 Ml Vial) 4 mg IV Q8H PRN PRN PRN Reason: NAUSEA Oxycodone HCl (Oxycodone 5 Mg Tablet) 5 - 10 mg PO Q4H PRN PRN PRN Reason: Pain Score 4-10 Last Admin: 12/17/20 04:11 Dose: 10 mg Documented by: Promethazine HCl (Promethazine 25 Mg/Ml Syringe) 12.5 mg IM Q6H PRN PRN; Protocol PRN Reason: NAUSEA/VOMITING Senna/Docusate Sodium (Senna/Docusate Sodium 1 Tablet) 2 tablet PO BID [facility] Last Admin: 12/16/20 21:21 Dose: 2 tablet Documented by: Sodium Chloride (0.9% Nacl Peripheral Flush Adult/Peds) 5 - 15 ml IV UD PRN PRN Reason: SALINE FLUSH Last Admin: 12/17/20 04:12 Dose: 10 ml Documented by: Sodium Chloride (0.9% Saline Lock 10 Ml Syringe) 10 - 40 ml IV UD PRN PRN Reason: SALINE FLUSH Tamsulosin HCl (Tamsulosin Hcl 0.4 Mg Capsule) 0.4 mg PO QHS [facility] Last Admin: 12/16/20 21:21 Dose: 0.4 mg Documented by: Medical Necessity - Tobacco Use Smoking Status: Never smoker Assessment/Plan Status post right total knee arthroplasty Plan 1. Continue all pain medications as prescribed 2. Continue physical therapy weight-bear as tolerated with walker. 3. Aspirin 81 mg 1 p.o. every 12 hours x30 days for postop DVT prophylaxis 4. Encourage incentive spirometry 5. Continue physical therapy on outpatient basis 6. Discharge home today after p.m. therapy 7. Follow-up as scheduled with Lavelle De La Cruz PA-C
--- NOTE | 2020-12-17 07:36 | PCM.DC.TKR ---
Discharge Diet: No Restrictions Discharge Activity: May Not Drive, May Shower, Use Walker May shower in (days): 2 Ice area for (Minutes): 20 - each hour while awake. Weight Bearing Status: Weight bearing as tolerated Elevate: Operative Extremity Additional Activity Instructions:: Wear elastic stockings for 2 weeks after your surgery. Call your doctor if your incision/area has: Continuous Slow Oozing, Sudden Increased Bleeding, Increased Pain/ Swelling, Increased Redness, Foul Smelling Discharge Call your doctor if you observe: Fever of 101 or Higher, Coldness, Increased Pain - in extremity, Numbness or Tingling, Change in Color, Calf discomfort, Uncontrolled pain Change Dressing in (Days):: 1 - and daily as needed. Cleanse incision/area with: Soap & Water Allergies/Adverse Reactions: Allergies shellfish derived Allergy (Verified 12/16/20 06:03) Pain in joints ORGAN MEATS Adverse Reaction (Uncoded 12/16/20 06:03) Pain in joints Medications to take at Discharge Allopurinol [Zyloprim] 100 mg PO DAILYCM 07/07/15 Vits A,C,E/Lutein/Minerals [Ocuvite with Lutein Tablet] 1 each PO DAILY 07/07/15 Co Q10 200 [Co Q-10] 100 mg PO DAILY 07/15/16 Tamsulosin HCl [Flomax] 0.4 mg PO QHS 07/15/16 Cholecalciferol (Vitamin D3) [Vitamin D3] 5,000 unit PO DAILY 06/05/19 Atorvastatin Calcium 40 mg PO DAILY 12/02/20 Metoprolol Tartrate 25 mg PO BID 12/02/20 Acetaminophen [Tylenol] 1,000 mg PO Q8H #90 tab 12/17/20 Aspirin [Aspirin, Baby] 81 mg PO BID #60 tab.chew 12/17/20 Oxycodone [Oxyir] 5 - 10 mg PO Q4H PRN PRN 7 Days #84 tablet 12/17/20 Senna/Docusate Sodium [Senokot-S] 2 tablet PO BID tablet 12/17/20 The following prescriptions were given: Aspirin [Aspirin, Baby] 81 mg PO BID #60 tab.chew Transmission Status: Pending to [facility] Oxycodone [Oxyir] 5 - 10 mg PO Q4H PRN PRN 7 Days #84 tablet PRN Reason: Pain Score 4-10 Transmission Status: Sent to [facility] Acetaminophen [Tylenol] 1,000 mg PO Q8H #90 tab Transmission Status: Pending to [facility] Primary Care Physician: Thor Eason MD [Primary Care Provider] - Test Results: Test results from this visit will be discussed in further detail at your follow-up appointment, if applicable. Please Follow Up With: Michael De La Cruz PA-C When: as scheduled (see pink sheet)
[2020-12-17 08:20] VITALS: O2SAT 98
[2020-12-17 08:38] VITALS: BP 128/81; PULSE 76
[2020-12-17] MEDS: Aspirin 81 MG TAB.CHEW PO (08:38)
[2020-12-17] MEDS: Multivitamin (Healthy Eyes) Capsule 1 CAP PO (08:38)
[2020-12-17] MEDS: Allopurinol 100 MG Tablet PO (08:38)
[2020-12-17] MEDS: Metoprolol Tartrate 25 MG Tablet PO (08:38)
[2020-12-17] MEDS: Senna/Docusate Sodium 1 Tablet 2 TABLET PO (08:39)
[2020-12-17 09:00] VITALS: BP 128/81; PULSE 76; RESP 18; TEMP 36.6; O2SAT 97
--- NOTE | 2020-12-17 09:50 | CASEMGMT ---
ASIYA HERNANDEZ Face to Face with patient for initial transition planning/care coordination assessment. ASIYA HERNANDEZ introduced self and role at [facility]. Patient sitting in chair, alert and oriented. Patient willing to participate in assessment and is able to answer all questions appropriately. Care providers, pharmacy, and demographics verified. Patient wishes to discharge home, and is setup with [facility] for outpatient therapy. Patient states he has no further needs or concerns at this time. CM to follow for discharge planning needs that may arise. PCP: Yumi Specialists: Alec, ortho; Karen, road advisor [facility]: yes Living Will/HPOA: yes, Lolita Forrest HPOA LNOK: Living Arrangements: Patient lives with in a single story home with 2 steps and grab bar to enter the home. Patient states he is independent at home prior to surgery Transportation: DME/HHC: Patient states he has raised toilet, grab bars, walker, and rollator at home. Patient states he is setup with [facility] for home therapy. ASIYA HERNANDEZ called [facility] to confirm setup, Delmi at [facility] requested discharge instructions. ASIYA HERNANDEZ faxed discharge instructions to [facility]. Disposition Plan: Patient to discharge home with [facility], family support, and follow-up plans in place. Daily HOLMAN, RN, CM
--- NOTE | 2020-12-17 10:58 | PHA.DC.MC ---
Pharmacy Service has performed discharge medication reconciliation and counseling for this patient. 1. ACETAMINOPHEN 1000MG PO Q8H 2. ASPIRIN 81MG PO BIDCM 3. OXYCODONE 5-10MG PO Q4H PRN PAIN 4-10 4. SENNA/DOCUSATE 2T PO BID The patient's discharge medication list was reviewed for discrepancies and discrepancies were resolved. Home Medications Allopurinol [Zyloprim] 100 mg PO DAILYCM 07/07/15 Vits A,C,E/Lutein/Minerals [Ocuvite with Lutein Tablet] 1 each PO DAILY 07/07/15 Co Q10 200 [Co Q-10] 100 mg PO DAILY 07/15/16 Tamsulosin HCl [Flomax] 0.4 mg PO QHS 07/15/16 Cholecalciferol (Vitamin D3) [Vitamin D3] 5,000 unit PO DAILY 06/05/19 Atorvastatin Calcium 40 mg PO DAILY 12/02/20 Metoprolol Tartrate 25 mg PO BID 12/02/20 Acetaminophen [Tylenol] 1,000 mg PO Q8H #90 tab 12/17/20 Aspirin [Aspirin, Baby] 81 mg PO BID #60 tab.chew 12/17/20 Oxycodone [Oxyir] 5 - 10 mg PO Q4H PRN PRN 7 Days #84 tab 12/17/20 Senna/Docusate Sodium [Senokot-S] 2 tab PO BID tab 12/17/20 The patient was counseled on the following discharge medications and changes in medications for homegoing were reviewed. The Reason for Use, instructions for use, and potential side effects were reviewed for all new medications. The patient's questions regarding all of their medications were answered. The patient was able to verbally demonstrate an understanding of their discharge medications.
[2020-12-17 14:00] VITALS: BP 117/85; PULSE 85; RESP 18; TEMP 36.6; O2SAT 97
--- NOTE | 2020-12-17 14:17 | CASEMGMT ---
ASIYA HERNANDEZ in to discuss PEREZ form with patient. RN DAVID explained PEREZ form to patient, patient voiced understanding. Patient signed PEREZ form and filed in chart. Patient provided with copy of signed PEREZ form. Patient had no further questions or concerns at this time.
[2020-12-17 14:20] VITALS: BP 117/85; PULSE 85; RESP 18; TEMP 36.6; O2SAT 97
== END 2020-12-17 14:15 | disposition home or self-care (01) ==
LOC: SDC 07:49 → MS3 07:49
PROVIDERS: Anesthesiology; Admitting Provider Orthopaedic Surgery; PCP Family Medicine; Referring Provider Orthopaedic Surgery; Visit Provider Orthopaedic Surgery
PROC: 0SRC0JZ Replacement of Right Knee Joint with Synthetic Substitute, Open Approach (ICD-10-PCS; CPT 27447; principal; 2020-12-16 07:00)
DX: M17.11 Unilateral primary osteoarthritis, right knee (principal); E78.00 Pure hypercholesterolemia, unspecified; I10 Essential (primary) hypertension; R00.1 Bradycardia, unspecified; I44.4 Left anterior fascicular block; G25.81 Restless legs syndrome; M10.9 Gout, unspecified; Z20.828 Contact with and (suspected) exposure to other viral communicable diseases; Z86.711 Personal history of pulmonary embolism; Z79.899 Other long term (current) drug therapy; Z79.82 Long term (current) use of aspirin; Z87.19 Personal history of other diseases of the digestive system
CPT/HCPCS: 01402; 27447; 64447; S2900; 36415; 73560; 80048; 80076; 82962; 83735; 85025; 85027; 85610; 85730; 87081; 87426; 88305; 88311; 93005; 94762; 96361; 96365; 96366; 97110; 97116; 97162; 97166; 97530; 97535; 99218; C1776; C9803; J7120; A4216; G0378; G0379

== ENCOUNTER 2021-01-29 10:00 | Outpatient (RCR) | payer MEDICARE, SELFPAY ==
[2020-12-16 10:54] VITALS: BMI 30.4
[2021-01-15 09:56] VITALS: BP 134/78; PULSE 80; RESP 16; TEMP 36; BMI 27.4
--- NOTE | 2021-01-15 10:53 | HP.PCM_ITS ---
(1) Dehiscence of surgical wound Status: Acute Qualifiers: Encounter type: initial encounter Qualified Code(s): T81.31XA - Disruption of external operation (surgical) wound, not elsewhere classified, initial encounter Code(s): T81.31XA - Disruption of external operation (surgical) wound, not elsewhere classified, initial encounter (2) Non-healing surgical wound Status: Acute Qualifiers: Encounter type: initial encounter Qualified Code(s): T81.89XA - Other complications of procedures, not elsewhere classified, initial encounter Code(s): T81.89XA - Other complications of procedures, not elsewhere classified, initial encounter (3) Infected wound Status: Acute Code(s): T14.8XXA - Other injury of unspecified body region, initial encounter; L08.9 - Local infection of the skin and subcutaneous tissue, unspecified (4) Edema of right lower leg Status: Acute Code(s): R60.0 - Localized edema History of Present Illness Date of Service: 01/15/21 Chief Complaint: Follow-up on a postop robotic right knee open wound that dehisced History of Wound: 75-year-old white male history of right total knee done and December 16 and then the robotic area just below the knee reopened about a week later patient has been told to use antibiotic ointment and hydrogen peroxide for cleaning , and it is not healing. Referred here from [facility]. Past Medical History Allergies/Adverse Reactions: Allergies shellfish derived Allergy (Verified 01/15/21 10:08) Pain in joints ORGAN MEATS Adverse Reaction (Uncoded 12/16/20 06:03) Pain in joints Home Medications: Ambulatory Orders Medication Instructions Recorded Allopurinol [Zyloprim] 100 mg PO DAILYCM 07/07/15 Vits A,C,E/Lutein/Minerals 1 each PO DAILY 07/07/15 [Ocuvite with Lutein Tablet] Tamsulosin HCl [Flomax] 0.4 mg PO QHS 07/15/16 Cholecalciferol (Vitamin D3) 5,000 unit PO DAILY 06/05/19 [Vitamin D3] Atorvastatin Calcium 40 mg PO DAILY 12/02/20 Metoprolol Tartrate 25 mg PO BID 12/02/20 Aspirin [Aspirin, Baby] 81 mg PO BID #60 tab.chew 12/17/20 Acetaminophen [Tylenol] 650 mg PO Q8H PRN 01/15/21 L.acidoph,Paracasei, B.lactis 1 each PO DAILY 01/15/21 [Probiotic] Lives: Spouse/ Significant Other Smoking Status: Never smoker Tobacco Use: Non-smoker Alcohol: None Drugs: None Review of Systems Constitutional: Denies: Chills, Fever Eyes: Denies: Blurred vision, Drainage, Pain HEENT: Denies: Difficulty Hearing, Difficulty Swallowing, Sore Throat, Visual Changes Cardiovascular: Denies: Chest Pain, Palpitations, Syncope Respiratory: Denies: Cough, Shortness of Breath Gastrointestinal: Denies: Abdominal Pain, Nausea, Vomiting Genitourinary: Denies: Dysuria, Frequency Musculoskeletal: Denies: Joint Pain, Muscle pain Skin: Reports: - - Open wound right mancilla. Denies: Jaundice, Rash Neurological: Denies: Balance problems, Change in Speech, Difficulty swallowing, Focal weakness Psychiatric: Denies: Anxiety, Depression Endocrine: Denies: Change in Body Habitus Hematologic/ Lymphatic: Denies: Adenopathy - Physical Exam Vital Signs Temp Pulse Resp BP 96.8 F L 80 16 134/78 H 01/15/21 09:56 01/15/21 09:56 01/15/21 09:56 01/15/21 09:56 General: Oriented x3, Cooperative, Well developed HEENT: Atraumatic, PERRLA Oral: Moist Mucosa Neck: Supple, No JVD Lungs: Clear to auscultation, Normal air movement Cardiovascular: Regular rate, Regular Rhythm Abdomen: Bowel Sounds Present, Soft, Non Tender, No Hepato-splenomegaly Extremities: No clubbing, No edema Skin: Ulcer/ Wound - Right mancilla dehisced wound from robotic surgery of a total knee on the right Wound Measurements and Assessment WC - Nurse 1 - General Ulcer Measurement Start: 01/15/21 09:55 Freq: Status: Active Protocol: Activity Type Activity Date Activity User E-Sign Co-Sign Detail Recorded Client Recorded Date Recorded By Document 01/15/21 09:56 [facility] [id number] 01/15/21 10:06 [facility] 01/15/21 09:56 Wound Center Nurse 1 [Ulcer Assessment] #1- R MANCILLA -Combined with other wound No -Current Size (cm) - Length 1.5 -Current Size (cm) - Width 1 -Current Size (cm) - Depth 0.2 -Total Square Cm 1.5 -Date of Last Picture (Recall this 01/15/21 field) -Photo Taken Yes -Epithelialization None Present -Tunneling No -Undermining/Tunneling No -Circular Undermining No -Exudate Amt Small -Exudate Type Serosanguineous -Wound Margin Distinct, Outline Attached -Granulation Amt Small (1-33%) -Granulation Quality Red -Slough/Fibrin Yes -Necrosis Amt Large (67-100%) -Necrotic Tissue Type Adherent Slough -Texture (Yuly-wound Skin Appearance) Assessed, Scarring -Moisture (Yuly-wound Skin Appearance Assessed ) -Color (Yuly-wound Skin Appearance) Assessed -Temperature (Yuly-wound Skin No Abnormality Appearance) (Pt Warm) -Tenderness on Palpation (Yuly-wound No Skin Appearance) -Ulcer Cleansing Rinsed/ Irrigated with Saline -Foul Odor after Cleansing No -Anesthetic Used 5% Lidocaine Gel [Edema Assessment] -Right Calf (cm) 37 -Right Ankle (cm) 24 -Left Calf (cm) 36 -Left Ankle (cm) 23 WC - Nurse 2 - General Ulcer CM Notes Start: 01/15/21 09:55 Freq: Status: Active Protocol: Activity Type Activity Date Activity User E-Sign Co-Sign Detail Recorded Client Recorded Date Recorded By Document 01/15/21 10:21 MW [id number] 01/15/21 10:24 MW 01/15/21 10:21 Wound Center Nurse 2 [Procedure/Treatment] #1- R MANCILLA -Time 10:22 -Correct Patient Yes -Correct Side, Site, Position Yes -Correct Procedure Yes -Procedure Performed Yes -Type of Procedure Debridement -Clinical Debridement Subcutaneous -Tissue Removed Subcutaneous -Post Debridement (cm) - Length 1.1 -Post Debridement (cm) - Width 1.1 -Post Debridement (cm) - Depth 0.3 -Total Square (Post) (cm) 1.21 -Area of Debridement (cm) - Length 1.1 -Area of Debridement (cm) - Width 1.1 -Total Square (Area) (cm) 1.21 -Tunneling No -Undermining/Tunneling No -Circular Undermining No -Wound/Ulcer Outcome Not Healed -Ulcer Cleansing Rinsed/ Irrigated with Saline -Foul Odor after Cleansing No -Bioengineered Tissue No -Bleeding Controlled with Pressure -Offloading No -Debridement - Subq, 1st 20sq cm Yes [See Physician Procedure note for Specifics] Pain Scale: 0-10 Numeric [Pain] -Is Patient Pain Free? 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 Yes - Visit Discharge [Visit Discharge Information] -Discharge Condition Stable -Ambulatory Status Ambulatory -Transportation Private Auto Musculoskeletal: No Tenderness to Palpation of Joints or Extremities Lymphatic: No Cervical, Supraclavicular, or Inguinal Adenopathy Neurological: Cranial nerves II-XII grossly intact, Neuro grossly intact Psych/Mental Status: Normal Affect, Appropriate Debridement Note Post-Debridement Measurements/Treatment - Nurse 2 - General Ulcer CM Notes Start: 01/15/21 09:55 Freq: Status: Active Protocol: Activity Type Activity Date Activity User E-Sign Co-Sign Detail Recorded Client Recorded Date Recorded By Document 01/15/21 10:21 [id number] 01/15/21 10:24 MW 01/15/21 10:21 Wound Center Nurse 2 #1- R MANCILLA -Time 10:22 -Correct Patient Yes -Correct Side, Site, Position Yes -Correct Procedure Yes -Procedure Performed Yes -Type of Procedure Debridement -Clinical Debridement Subcutaneous -Tissue Removed Subcutaneous -Post Debridement (cm) - Length 1.1 -Post Debridement (cm) - Width 1.1 -Post Debridement (cm) - Depth 0.3 -Total Square (Post) (cm) 1.21 -Area of Debridement (cm) - Length 1.1 -Area of Debridement (cm) - Width 1.1 -Total Square (Area) (cm) 1.21 -Tunneling No -Undermining/Tunneling No -Circular Undermining No -Wound/Ulcer Outcome Not Healed -Ulcer Cleansing Rinsed/ Irrigated with Saline -Foul Odor after Cleansing No -Bioengineered Tissue No -Bleeding Controlled with Pressure -Offloading No -Debridement - Subq, 1st 20sq cm Yes Pain Scale: 0-10 Numeric Is Patient Pain Free? Yes - Nurse 3 - General Ulcer D/C NN Start: 01/15/21 09:55 Freq: Status: Active Protocol: Activity Type Activity Date Activity User E-Sign Co-Sign Detail Recorded Client Recorded Date Recorded By Document 01/15/21 10:29 [facility] [id number] 01/15/21 10:34 [facility] 01/15/21 10:29 Wound Care Nurse 3 #1- R MANCILLA -Ulcer Cleansing Rinsed/ Irrigated with Saline -Foul Odor after Cleansing No -Primary Dressing Applied Aquacel Extra -Other Dressing DRSG PER Robin BONILLA LPN -Primary Dressing Covered/Secured with Dry Gauze, Secured with Tape -Aquacel Extra 1 Right -Tubular Bandage Double Layer -Size of Tubigrip Used Size E -Size E ($) 1 Treatment Response Procedure Tolerated Well Pain Scale: 0-10 Numeric Is Patient Pain Free? Yes - Visit Discharge Discharge Condition Stable Ambulatory Status Ambulatory Transportation Private Auto Wound debrided: Right mancilla wound Type of Debridement: Excisional debridement Anesthesia Used: 5% Lidocaine Gel Depth: Down to and including healthy tissue, in the subcutaneous layer Percentage of wound debrided: 100 Instrument Used: 5mm curette Tissue Removed: Devitalized tissue and slough Severity: Fat Layer Exposed Amount of bleeding with debridement: Mild Bleeding Controlled with: Compression and gauze Patient tolerated procedure well Assessment/Plan Ply for epifix to wound base Active Problems Dehiscence of surgical wound (Acute) Non-healing surgical wound (Acute) Infected wound (Acute) Edema of right lower leg (Acute) Assessment: His surgical wound right mancilla. Infected wound right mancilla. Edema right lower leg Plan: Wash right leg with antibacterial soap. Apply Aquacel extra to wound base moistened with water cover with Adaptic then gauze tape. Double layer Tubigrip to right leg. Follow-up in 2 weeks
[2021-01-29 10:15] VITALS: BP 114/67; PULSE 57; TEMP 36.4; BMI 27.4
--- NOTE | 2021-01-29 11:41 | PCM.WC.PN ---
(1) Dehiscence of surgical wound Status: Acute Qualifiers: Encounter type: subsequent encounter Qualified Code(s): T81.31XD - Disruption of external operation (surgical) wound, not elsewhere classified, subsequent encounter Code(s): T81.31XA - Disruption of external operation (surgical) wound, not elsewhere classified, initial encounter (2) Non-healing surgical wound Status: Acute Qualifiers: Encounter type: subsequent encounter Qualified Code(s): T81.89XD - Other complications of procedures, not elsewhere classified, subsequent encounter Code(s): T81.89XA - Other complications of procedures, not elsewhere classified, initial encounter (3) Infected wound Status: Acute Code(s): T14.8XXA - Other injury of unspecified body region, initial encounter; L08.9 - Local infection of the skin and subcutaneous tissue, unspecified (4) Edema of right lower leg Status: Acute Code(s): R60.0 - Localized edema (5) Non-pressure ulcer of right lower extremity with fat layer exposed Status: Acute Code(s): L97.912 - Non-pressure chronic ulcer of unspecified part of right lower leg with fat layer exposed Type of Wound Date of Service: 01/29/21 Chief Complaint: Follow-up on a postop robotic right knee open wound that dehisced History of Wound: 75-year-old white male history of right total knee done and December 16 and then the robotic area just below the knee reopened about a week later patient has been told to use antibiotic ointment and hydrogen peroxide for cleaning , and it is not healing. Referred here from [facility]. Progress of Wound: Right mancilla wound still open with slough. We will reapply for epifix. Sign of infection cultures came back negative. - Physical Exam Vital Signs Temp Pulse Resp BP 97.5 F L 57 L 16 114/67 01/29/21 10:15 01/29/21 10:15 01/15/21 09:56 01/29/21 10:15 General: Oriented x3, Cooperative, Well developed HEENT: Atraumatic, PERRLA Oral: Moist Mucosa Neck: Supple, No JVD Lungs: Clear to auscultation, Normal air movement Cardiovascular: Regular rate, Regular Rhythm Abdomen: Bowel Sounds Present, Soft, Non Tender, No Hepato-splenomegaly Extremities: No clubbing, No edema Skin: Ulcer/ Wound - Right mancilla surgical wound from robotics surgery nonhealing nonpressure wound Wound Measurements and Assessment WC - Nurse 1 - General Ulcer Measurement Start: 01/15/21 09:55 Freq: Status: Active Protocol: Activity Type Activity Date Activity User E-Sign Co-Sign Detail Recorded Client Recorded Date Recorded By Document 01/29/21 10:15 KR [id number] 01/29/21 10:16 KR 01/29/21 10:15 Wound Center Nurse 1 [Ulcer Assessment] #1- R MANCILLA -Current Size (cm) - Length 1 -Current Size (cm) - Width 1 -Current Size (cm) - Depth 0.2 -Total Square Cm 1 -Exudate Amt Small -Exudate Type Serosanguineous -Wound Margin Distinct, Outline Attached -Granulation Amt Medium (34-66%) -Granulation Quality Red -Necrosis Amt Medium (34-66%) -Necrotic Tissue Type Adherent Slough -Texture (Yuly-wound Skin Appearance) Assessed, Scarring -Moisture (Yuly-wound Skin Appearance No Abnormality, ) Assessed -Color (Yuly-wound Skin Appearance) No Abnormality, Assessed -Temperature (Yuly-wound Skin No Abnormality Appearance) (Pt Warm) -Tenderness on Palpation (Yuly-wound No Skin Appearance) -Ulcer Cleansing Rinsed/ Irrigated with Saline -Anesthetic Used 4% Lidocaine Solution [Edema Assessment] -Right Calf (cm) 36 -Right Ankle (cm) 24 - Nurse 2 - General Ulcer CM Notes Start: 01/15/21 09:55 Freq: Status: Active Protocol: Activity Type Activity Date Activity User E-Sign Co-Sign Detail Recorded Client Recorded Date Recorded By Document 01/29/21 10:26 MW [id number] 01/29/21 10:28 MW 01/29/21 10:26 Wound Center Nurse 2 [Procedure/Treatment] #1- R MANCILLA -Time 10:26 -Correct Patient Yes -Correct Side, Site, Position Yes -Correct Procedure Yes -Procedure Performed Yes -Type of Procedure Debridement -Clinical Debridement Subcutaneous -Tissue Removed Subcutaneous -Post Debridement (cm) - Length 1.0 -Post Debridement (cm) - Width 1.0 -Post Debridement (cm) - Depth 0.2 -Total Square (Post) (cm) 1.00 -Area of Debridement (cm) - Length 1.0 -Area of Debridement (cm) - Width 1.0 -Total Square (Area) (cm) 1.00 -Tunneling No -Undermining/Tunneling No -Circular Undermining No -Wound/Ulcer Outcome Not Healed -Ulcer Cleansing Rinsed/ Irrigated with Saline -Foul Odor after Cleansing No -Bioengineered Tissue No -Bleeding Controlled with Pressure -Offloading No -Treatment Response Procedure Tolerated Well -Debridement - Subq, 1st 20sq cm Yes [See Physician Procedure note for Specifics] Pain Scale: 0-10 Numeric [Pain] -Is Patient Pain Free? Yes Musculoskeletal: No Tenderness to Palpation of Joints or Extremities Lymphatic: No Cervical, Supraclavicular, or Inguinal Adenopathy Neurological: Cranial nerves II-XII grossly intact, Neuro grossly intact Psych/Mental Status: Normal Affect, Appropriate Debridement Note Post-Debridement Measurements/Treatment WC - Nurse 2 - General Ulcer CM Notes Start: 01/15/21 09:55 Freq: Status: Active Protocol: Activity Type Activity Date Activity User E-Sign Co-Sign Detail Recorded Client Recorded Date Recorded By Document 01/15/21 10:21 MW [id number] 01/15/21 10:24 MW Document 01/29/21 10:26 MW [id number] 01/29/21 10:28 MW 01/15/21 01/29/21 10:21 10:26 Wound Center Nurse 2 #1- R MANCILLA -Time 10:22 10:26 -Correct Patient Yes Yes -Correct Side, Site, Position Yes Yes -Correct Procedure Yes Yes -Procedure Performed Yes Yes -Type of Procedure Debridement Debridement -Clinical Debridement Subcutaneous Subcutaneous -Tissue Removed Subcutaneous Subcutaneous -Post Debridement (cm) - Length 1.1 1.0 -Post Debridement (cm) - Width 1.1 1.0 -Post Debridement (cm) - Depth 0.3 0.2 -Total Square (Post) (cm) 1.21 1.00 -Area of Debridement (cm) - Length 1.1 1.0 -Area of Debridement (cm) - Width 1.1 1.0 -Total Square (Area) (cm) 1.21 1.00 -Tunneling No No -Undermining/Tunneling No No -Circular Undermining No No -Wound/Ulcer Outcome Not Healed Not Healed -Ulcer Cleansing Rinsed/ Rinsed/ Irrigated with Irrigated with Saline Saline -Foul Odor after Cleansing No No -Bioengineered Tissue No No -Bleeding Controlled with Pressure Pressure -Offloading No No -Treatment Response Procedure Tolerated Well -Debridement - Subq, 1st 20sq cm Yes Yes Pain Scale: 0-10 Numeric Is Patient Pain Free? Yes Yes - Nurse 3 - General Ulcer D/C NN Start: 01/15/21 09:55 Freq: Status: Active Protocol: Activity Type Activity Date Activity User E-Sign Co-Sign Detail Recorded Client Recorded Date Recorded By Document 01/15/21 10:29 [facility] [id number] 01/15/21 10:34 [facility] 01/15/21 10:29 Wound Care Nurse 3 #1- R MANCILLA -Ulcer Cleansing Rinsed/ Irrigated with Saline -Foul Odor after Cleansing No -Primary Dressing Applied Aquacel Extra -Other Dressing DRSG PER Robin BONILLA LPN -Primary Dressing Covered/Secured with Dry Gauze, Secured with Tape -Aquacel Extra 1 Right -Tubular Bandage Double Layer -Size of Tubigrip Used Size E -Size E ($) 1 Treatment Response Procedure Tolerated Well Pain Scale: 0-10 Numeric Is Patient Pain Free? Yes - Visit Discharge Discharge Condition Stable Ambulatory Status Ambulatory Transportation Private Auto Wound debrided: [place] wound Type of Debridement: Excisional debridement Depth: Down to and including healthy tissue, in the subcutaneous layer Percentage of wound debrided: 100 Instrument Used: 5mm curette Tissue Removed: And fibrin Severity: Limited To Skin Breakdown Amount of bleeding with debridement: Mild Bleeding Controlled with: Compression and gauze Patient tolerated procedure well Assessment/Plan Active Problems Dehiscence of surgical wound (Acute) Non-healing surgical wound (Acute) Infected wound (Acute) Edema of right lower leg (Acute) Non-pressure ulcer of right lower extremity with fat layer exposed (Acute) Assessment: His surgical wound right mancilla. Infected wound right mancilla. Edema right lower leg. Nonpressure surgical wound dehisced right lower extremity Plan: Wash right leg with antibacterial soap. Apply Aquacel extra to wound base moistened with water cover with Adaptic then gauze tape. Double layer Tubigrip to right leg. Follow-up in 1 weeks
== END 2021-01-29 23:59 ==
LOC: WC 10:00
PROVIDERS: PCP Family Medicine; Visit Provider Nurse Practitioner
DX: L97.912 Non-pressure chronic ulcer of unspecified part of right lower leg with fat layer exposed (principal); L08.9 Local infection of the skin and subcutaneous tissue, unspecified; R60.9 Edema, unspecified; T81.31XD Disruption of external operation (surgical) wound, not elsewhere classified, subsequent encounter; T81.89XD Other complications of procedures, not elsewhere classified, subsequent encounter
CPT/HCPCS: 11042; 87070; 87075; 87205; 99213; G0463

== ENCOUNTER 2021-02-26 09:45 | Outpatient (RCR) | payer MEDICARE, SELFPAY ==
[2021-01-30 00:51] VITALS: BP 114/67; PULSE 57; RESP 16; TEMP 36.4
[2021-02-05 09:59] VITALS: BP 138/80; PULSE 69; TEMP 36.4; BMI 27.4
--- NOTE | 2021-02-05 10:17 | PN.PCM_ITS ---
(1) Dehiscence of surgical wound Status: Acute Qualifiers: Code(s): T81.31XA - Disruption of external operation (surgical) wound, not elsewhere classified, initial encounter (2) Edema of right lower leg Status: Acute Code(s): R60.0 - Localized edema (3) Non-healing surgical wound Status: Acute Qualifiers: Code(s): T81.89XA - Other complications of procedures, not elsewhere classified, initial encounter (4) Non-pressure ulcer of right lower extremity with fat layer exposed Status: Acute Code(s): L97.912 - Non-pressure chronic ulcer of unspecified part of right lower leg with fat layer exposed (5) Chronic wound of extremity Status: Chronic Type of Wound Date of Service: 02/05/21 Chief Complaint: Follow-up on a postop robotic right knee open wound that dehisced History of Wound: 75-year-old white male history of right total knee done and December 16 and then the robotic area just below the knee reopened about a week later patient has been told to use antibiotic ointment and hydrogen peroxide for cleaning , and it is not healing. Referred here from [facility]. Progress of Wound: Right mancilla wound still open with slough. We will reapply for epifix. Sign of infection cultures came back negative. Wound size same strain developed skin buds inside wound base. Still appealing for the epifix. We will try using Promogran instead of Aquacel extra this week. - Physical Exam Vital Signs Temp Pulse Resp BP 97.5 F L 69 16 138/80 H 02/05/21 09:59 02/05/21 09:59 01/30/21 00:51 02/05/21 09:59 General: Oriented x3, Cooperative, Well developed HEENT: Atraumatic, PERRLA Oral: Moist Mucosa Neck: Supple, No JVD Lungs: Clear to auscultation, Normal air movement Cardiovascular: Regular rate, Regular Rhythm Abdomen: Bowel Sounds Present, Soft, Non Tender, No Hepato-splenomegaly Extremities: No clubbing, No edema Wound Measurements and Assessment WC - Nurse 1 - General Ulcer Measurement Start: 02/05/21 09:53 Freq: Status: Active Protocol: Activity Type Activity Date Activity User E-Sign Co-Sign Detail Recorded Client Recorded Date Recorded By Document 02/05/21 09:59 [id number] 02/05/21 10:01 KR 02/05/21 09:59 Wound Center Nurse 1 [Ulcer Assessment] #1- R MANCILLA -Current Size (cm) - Length 1 -Current Size (cm) - Width 0.8 -Current Size (cm) - Depth 0.2 -Total Square Cm 0.8 -Exudate Amt Small -Exudate Type Serosanguineous -Wound Margin Distinct, Outline Attached -Granulation Amt Small (1-33%) -Granulation Quality [place] -Necrosis Amt Medium (34-66%) -Necrotic Tissue Type Adherent Slough -Texture (Yuly-wound Skin Appearance) Assessed, Scarring -Moisture (Yuly-wound Skin Appearance No Abnormality, ) Assessed -Color (Yuly-wound Skin Appearance) No Abnormality, Assessed -Temperature (Yuly-wound Skin No Abnormality Appearance) (Pt Warm) -Tenderness on Palpation (Yuly-wound No Skin Appearance) -Ulcer Cleansing Rinsed/ Irrigated with Saline -Foul Odor after Cleansing No -Anesthetic Used 4% Lidocaine Solution [Edema Assessment] -Right Calf (cm) 37 -Right Ankle (cm) 24 WC - Nurse 2 - General Ulcer CM Notes Start: 02/05/21 09:53 Freq: Status: Active Protocol: Activity Type Activity Date Activity User E-Sign Co-Sign Detail Recorded Client Recorded Date Recorded By Document 02/05/21 10:13 MW [id number] 02/05/21 10:14 MW 02/05/21 10:13 Wound Center Nurse 2 [Procedure/Treatment] #1- R MANCILLA -Time 10:13 -Correct Patient Yes -Correct Side, Site, Position Yes -Correct Procedure Yes -Procedure Performed Yes -Type of Procedure Debridement -Clinical Debridement Subcutaneous -Tissue Removed Subcutaneous -Post Debridement (cm) - Length 1.0 -Post Debridement (cm) - Width 1.0 -Post Debridement (cm) - Depth 0.2 -Total Square (Post) (cm) 1.00 -Area of Debridement (cm) - Length 1.0 -Area of Debridement (cm) - Width 1.0 -Total Square (Area) (cm) 1.00 -Tunneling No -Undermining/Tunneling No -Circular Undermining No -Wound/Ulcer Outcome Not Healed -Ulcer Cleansing Rinsed/ Irrigated with Saline -Foul Odor after Cleansing No -Bioengineered Tissue No -Bleeding Controlled with Pressure -Offloading No -Treatment Response Procedure Tolerated Well -Debridement - Subq, 1st 20sq cm Yes [See Physician Procedure note for Specifics] Pain Scale: 0-10 Numeric [Pain] -Is Patient Pain Free? Yes Musculoskeletal: No Tenderness to Palpation of Joints or Extremities Lymphatic: No Cervical, Supraclavicular, or Inguinal Adenopathy Neurological: Cranial nerves II-XII grossly intact, Neuro grossly intact Psych/Mental Status: Normal Affect, Appropriate Debridement Note Post-Debridement Measurements/Treatment WC - Nurse 2 - General Ulcer CM Notes Start: 02/05/21 09:53 Freq: Status: Active Protocol: Activity Type Activity Date Activity User E-Sign Co-Sign Detail Recorded Client Recorded Date Recorded By Document 02/05/21 10:13 MW [id number] 02/05/21 10:14 MW 02/05/21 10:13 Wound Center Nurse 2 #1- R MANCILLA -Time 10:13 -Correct Patient Yes -Correct Side, Site, Position Yes -Correct Procedure Yes -Procedure Performed Yes -Type of Procedure Debridement -Clinical Debridement Subcutaneous -Tissue Removed Subcutaneous -Post Debridement (cm) - Length 1.0 -Post Debridement (cm) - Width 1.0 -Post Debridement (cm) - Depth 0.2 -Total Square (Post) (cm) 1.00 -Area of Debridement (cm) - Length 1.0 -Area of Debridement (cm) - Width 1.0 -Total Square (Area) (cm) 1.00 -Tunneling No -Undermining/Tunneling No -Circular Undermining No -Wound/Ulcer Outcome Not Healed -Ulcer Cleansing Rinsed/ Irrigated with Saline -Foul Odor after Cleansing No -Bioengineered Tissue No -Bleeding Controlled with Pressure -Offloading No -Treatment Response Procedure Tolerated Well -Debridement - Subq, 1st 20sq cm Yes Pain Scale: 0-10 Numeric Is Patient Pain Free? Yes Wound debrided: Right mancilla wound Type of Debridement: Excisional debridement Anesthesia Used: 5% Lidocaine Gel Depth: Down to and including healthy tissue, in the subcutaneous layer Percentage of wound debrided: 100 Instrument Used: 5mm curette Tissue Removed: Fibrin and devitalized tissue Severity: Fat Layer Exposed Amount of bleeding with debridement: Mild Bleeding Controlled with: Compression and gauze Patient tolerated procedure well Assessment/Plan Assessment: His surgical wound right mancilla. Infected wound right mancilla. Edema r ight lower leg. Nonpressure surgical wound dehisced right lower extremity Plan: Wash right leg with antibacterial soap. Apply Promogran to wound base moistened with water cover with Adaptic then gauze tape. Double layer Tubigrip to right leg. Follow-up in 1 weeks
[2021-02-19 09:53] VITALS: BP 146/79; PULSE 64; RESP 16; TEMP 36.6; BMI 27.4
--- NOTE | 2021-02-19 11:03 | PCM.WC.PN ---
(1) Dehiscence of surgical wound Status: Acute Qualifiers: Code(s): T81.31XA - Disruption of external operation (surgical) wound, not elsewhere classified, initial encounter (2) Edema of right lower leg Status: Acute Code(s): R60.0 - Localized edema (3) Non-healing surgical wound Status: Acute Qualifiers: Code(s): T81.89XA - Other complications of procedures, not elsewhere classified, initial encounter (4) Non-pressure ulcer of right lower extremity with fat layer exposed Status: Acute Code(s): L97.912 - Non-pressure chronic ulcer of unspecified part of right lower leg with fat layer exposed (5) Chronic wound of extremity Status: Chronic Type of Wound Date of Service: 02/19/21 Chief Complaint: Follow-up on a postop robotic right knee open wound that dehisced History of Wound: 75-year-old white male history of right total knee done and December 16 and then the robotic area just below the knee reopened about a week later patient has been told to use antibiotic ointment and hydrogen peroxide for cleaning , and it is not healing. Referred here from [facility]. Progress of Wound: Right mancilla wound still open with slough. We reapplied for epifix and it is pending with his insurance company. Sign of infection cultures came back negative. Wound size is smaller Still appealing for the epifix. We R using Promogran tolerating well patient was encouraged to show weekly instead of whenever he felt like it. - Physical Exam Vital Signs Temp Pulse Resp BP 98 F 64 16 146/79 H 02/19/21 09:53 02/19/21 09:53 02/19/21 09:53 02/19/21 09:53 General: Oriented x3, Cooperative, Well developed HEENT: Atraumatic, PERRLA Oral: Moist Mucosa Neck: Supple, No JVD Lungs: Clear to auscultation, Normal air movement Cardiovascular: Regular rate, Regular Rhythm Abdomen: Bowel Sounds Present, Soft, Non Tender, No Hepato-splenomegaly Extremities: No clubbing, No edema Skin: Ulcer/ Wound - Right mancilla dehisced wound Wound Measurements and Assessment WC - Nurse 1 - General Ulcer Measurement Start: 02/05/21 09:53 Freq: Status: Active Protocol: Activity Type Activity Date Activity User E-Sign Co-Sign Detail Recorded Client Recorded Date Recorded By Document 02/19/21 09:53 [facility] [id number] 02/19/21 10:00 [facility] 02/19/21 09:53 Wound Center Nurse 1 [Ulcer Assessment] #1- R MANCILLA -Combined with other wound No -Current Size (cm) - Length 0.3 -Current Size (cm) - Width 0.3 -Current Size (cm) - Depth 0.2 -Total Square Cm 0.09 -Photo Taken No -Epithelialization None Present -Tunneling No -Undermining/Tunneling No -Circular Undermining No -Exudate Amt Small -Exudate Type Serosanguineous -Wound Margin Distinct, Outline Attached -Granulation Amt None Present (0 %) -Slough/Fibrin Yes -Necrosis Amt Large (67-100%) -Necrotic Tissue Type Adherent Slough -Texture (Yuly-wound Skin Appearance) Assessed, Scarring -Moisture (Yuly-wound Skin Appearance Assessed ) -Color (Yuly-wound Skin Appearance) Assessed -Temperature (Yuly-wound Skin No Abnormality Appearance) (Pt Warm) -Tenderness on Palpation (Yuly-wound No Skin Appearance) -Ulcer Cleansing Rinsed/ Irrigated with Saline -Foul Odor after Cleansing No -Anesthetic Used 4% Lidocaine Solution [Edema Assessment] -Lower Limb Edema Present Yes -Right Calf (cm) 34.8 -Right Ankle (cm) 22.4 WC - Nurse 2 - General Ulcer CM Notes Start: 02/05/21 09:53 Freq: Status: Active Protocol: Activity Type Activity Date Activity User E-Sign Co-Sign Detail Recorded Client Recorded Date Recorded By Document 02/19/21 10:07 [id number] 02/19/21 10:08 MW 02/19/21 10:07 Wound Center Nurse 2 [Procedure/Treatment] #1- R MANCILLA -Time 10:08 -Correct Patient Yes -Correct Side, Site, Position Yes -Correct Procedure Yes -Procedure Performed Yes -Type of Procedure Debridement -Clinical Debridement Subcutaneous -Tissue Removed Subcutaneous -Post Debridement (cm) - Length 0.5 -Post Debridement (cm) - Width 0.5 -Post Debridement (cm) - Depth 0.2 -Total Square (Post) (cm) 0.25 -Area of Debridement (cm) - Length 0.5 -Area of Debridement (cm) - Width 0.5 -Total Square (Area) (cm) 0.25 -Tunneling No -Undermining/Tunneling No -Circular Undermining No -Wound/Ulcer Outcome Not Healed -Ulcer Cleansing Rinsed/ Irrigated with Saline -Foul Odor after Cleansing No -Bioengineered Tissue No -Bleeding Controlled with Pressure -Offloading No -Debridement - Subq, 1st 20sq cm Yes [See Physician Procedure note for Specifics] Pain Scale: 0-10 Numeric [Pain] -Is Patient Pain Free? Yes Musculoskeletal: No Tenderness to Palpation of Joints or Extremities Lymphatic: No Cervical, Supraclavicular, or Inguinal Adenopathy Neurological: Cranial nerves II-XII grossly intact, Neuro grossly intact Psych/Mental Status: Normal Affect, Appropriate, Alert and oriented to time, place, person, mood and affect Debridement Note Post-Debridement Measurements/Treatment WC - Nurse 2 - General Ulcer CM Notes Start: 02/05/21 09:53 Freq: Status: Active Protocol: Activity Type Activity Date Activity User E-Sign Co-Sign Detail Recorded Client Recorded Date Recorded By Document 02/05/21 10:13 MW [id number] 02/05/21 10:14 MW Document 02/19/21 10:07 MW [id number] 02/19/21 10:08 MW 02/05/21 02/19/21 10:13 10:07 Wound Center Nurse 2 #1- R MANCILLA -Time 10:13 10:08 -Correct Patient Yes Yes -Correct Side, Site, Position Yes Yes -Correct Procedure Yes Yes -Procedure Performed Yes Yes -Type of Procedure Debridement Debridement -Clinical Debridement Subcutaneous Subcutaneous -Tissue Removed Subcutaneous Subcutaneous -Post Debridement (cm) - Length 1.0 0.5 -Post Debridement (cm) - Width 1.0 0.5 -Post Debridement (cm) - Depth 0.2 0.2 -Total Square (Post) (cm) 1.00 0.25 -Area of Debridement (cm) - Length 1.0 0.5 -Area of Debridement (cm) - Width 1.0 0.5 -Total Square (Area) (cm) 1.00 0.25 -Tunneling No No -Undermining/Tunneling No No -Circular Undermining No No -Wound/Ulcer Outcome Not Healed Not Healed -Ulcer Cleansing Rinsed/ Rinsed/ Irrigated with Irrigated with Saline Saline -Foul Odor after Cleansing No No -Bioengineered Tissue No No -Bleeding Controlled with Pressure Pressure -Offloading No No -Treatment Response Procedure Tolerated Well -Debridement - Subq, 1st 20sq cm Yes Yes Pain Scale: 0-10 Numeric Is Patient Pain Free? Yes Yes - Nurse 3 - General Ulcer D/C NN Start: 02/05/21 09:53 Freq: Status: Active Protocol: Activity Type Activity Date Activity User E-Sign Co-Sign Detail Recorded Client Recorded Date Recorded By Document 02/05/21 10:28 [facility] [id number] 02/05/21 10:29 [facility] 02/05/21 10:28 Wound Care Nurse 3 #1- R MANCILLA -Ulcer Cleansing Rinsed/ Irrigated with Saline -Foul Odor after Cleansing No -Primary Dressing Applied NonAdherent Contact Layer, Promogran -Primary Dressing Covered/Secured with Dry Gauze & Roll Gauze, Secured with Tape -Promogran 1 Right -Tubular Bandage Double Layer -Size of Tubigrip Used Size E -Size E ($) 1 Treatment Response Procedure Tolerated Well Pain Scale: 0-10 Numeric Is Patient Pain Free? Yes - Visit Discharge Discharge Condition Stable Ambulatory Status Ambulatory Transportation Private Auto Wound debrided: Right mancilla wound Type of Debridement: Excisional debridement Anesthesia Used: 5% Lidocaine Gel Depth: Down to and including healthy tissue, in the subcutaneous layer Percentage of wound debrided: 100 Instrument Used: 3mm curette Tissue Removed: Slough and fibrin Severity: Limited To Skin Breakdown Amount of bleeding with debridement: Mild Bleeding Controlled with: Compression and gauze Patient tolerated procedure well Assessment/Plan Active Problems Dehiscence of surgical wound (Acute) Non-healing surgical wound (Acute) Edema of right lower leg (Acute) Chronic wound of extremity (Chronic) Non-pressure ulcer of right lower extremity with fat layer exposed (Acute) Assessment: His surgical wound right mancilla. Infected wound right mancilla resolved. Edema right lower leg. Nonpressure surgical wound dehisced right lower extremity Plan: Wash right leg with antibacterial soap. Apply Promogran to wound base moistened with water cover with Adaptic then gauze tape. Double layer Tubigrip to right leg. Follow-up in 1 weeks
[2021-02-26 09:30] VITALS: BP 129/77; PULSE 62; RESP 18; TEMP 36; BMI 27.4
--- NOTE | 2021-02-26 11:52 | PN_ITS ---
Subjective Subjective: 75 year old white male that is following up on his R maniclla area . patient is upset ins refuses to let him have an epifix or any skin substitute . The wound is much smaller Objective Data Objective Data Today the wound is 1/4 the size it was and should be healing within the next few weeks. debridement was done with # 3 currette and tolerated well for fibrin. Bleeds easily and will continue the promogran used previously.No redness or swelling or infection noted.Denies pain. Vital Signs: Vital Signs Temp Pulse Resp BP 96.8 F L 62 18 129/77 H 02/26/21 09:30 02/26/21 09:30 02/26/21 09:30 02/26/21 09:30 Oxygen Delivery Method Room Air Weight: 186 lb Body Mass Index (BMI) 27.4 Physical Exam Const alert and oriented x3 HEENT head/scalp atraumatic Eyes PERRL Neck supple Lymph Lymphatic: no lymphadenopathy noted Resp normal respiratory effort Cardio regular rate and regular rhythm GI normal to inspection, nondistended, normoactive bowel sounds Extremity no clubbing, cyanosis or edema Skin General Skin Exam: turgor normal Rashes: No rashes noted Wounds: wounds noted size Size: 0.3x0.3xx0.2, No drainage, margins well defined, no odor and No surrounding erythema Neuro CN's II-XII intact bilaterally Psych affect normal Assessment & Plan Assessment/Plan (1) Non-healing surgical wound: Status: Acute Code(s): T81.89XA - Other complications of procedures, not elsewhere classified, initial encounter Qualifiers: Encounter type: subsequent encounter Qualified Code(s): T81.89XD - Other complications of procedures, not elsewhere classified, subsequent encounte r Plan: Will continue the promogran moistened then adaptic and gauze dressing every day continue to keep clean and dry follow up 1 week (2) Chronic wound of extremity: Status: Chronic (3) Non-pressure ulcer of right lower extremity with fat layer exposed: Status: Acute Code(s): L97.912 - Non-pressure chronic ulcer of unspecified part of right lower leg with fat layer exposed
== END 2021-02-28 23:59 ==
LOC: WC 09:45
PROVIDERS: PCP Family Medicine; Visit Provider Nurse Practitioner
DX: L97.912 Non-pressure chronic ulcer of unspecified part of right lower leg with fat layer exposed (principal); R60.0 Localized edema; L08.9 Local infection of the skin and subcutaneous tissue, unspecified; T81.31XA Disruption of external operation (surgical) wound, not elsewhere classified, initial encounter; Z98.890 Other specified postprocedural states
CPT/HCPCS: 11042

== ENCOUNTER 2021-03-05 09:45 | Outpatient (RCR) | payer MEDICARE, SELFPAY ==
[2021-03-01 00:47] VITALS: BP 129/77; PULSE 62; RESP 18; TEMP 36
[2021-03-05 09:37] VITALS: BP 134/75; PULSE 63; RESP 16; TEMP 36.1; BMI 27.4
--- NOTE | 2021-03-05 12:17 | PN.PCM_ITS ---
History of Present Illness Date of Service: 03/05/21 Chief Complaint: Follow-up on a postop robotic right knee open wound that dehisced History of Wound: 75-year-old white male history of right total knee done and December 16 and then the robotic area just below the knee reopened about a week later patient has been told to use antibiotic ointment and hydrogen peroxide for cleaning , and it is not healing. Referred here from [facility]. Objective Data Objective Data the wound is still open and + depth . New islands of tissue developing . We discussed should come in 2 weeks and maybe healed. Vital Signs: Vital Signs Temp Pulse Resp BP 97 F L 63 16 134/75 H 03/05/21 09:37 03/05/21 09:37 03/05/21 09:37 03/05/21 09:37 Oxygen Delivery Method Room Air Weight: 186 lb Body Mass Index (BMI) 27.4 Assessment & Plan Assessment/Plan (1) Non-healing surgical wound: Status: Acute Code(s): T81.89XA - Other complications of procedures, not elsewhere classified, initial encounter Qualifiers: Encounter type: subsequent encounter Qualified Code(s): T81.89XD - Other complications of procedures, not elsewhere classified, subsequent encounter Plan: continue the promogran moistened and adaptic screen and gauze cover. follow up 2 weeks (2) Edema of right lower leg: Status: Acute Code(s): R60.0 - Localized edema Plan: continue compression stocking (3) Chronic wound of extremity: Status: Chronic (4) Non-pressure ulcer of right lower extremity with fat layer exposed: Status: Acute Code(s): L97.912 - Non-pressure chronic ulcer of unspecified part of right lower leg with fat layer exposed Physical Exam Const oriented x3 General Appearance: cooperative Exam Limitations: no limitations HEENT normocephalic Head and Scalp: normal to inspection Face and Sinus: normal facial exam Nose: external nose normal General Ear: hearing grossly impaired External Ear: external ears normal Mouth: oral and palatal mucosa normal Eyes PERRL General Eye: normal appearance of both eyes Neck full ROM General: normal visual inspection Resp normal respiratory effort Effort and Inspection: able to speak in complete sentences Auscultation: clear to auscultation bilaterally Cardio regular rate and regular rhythm Palpation: normal PMI Rate: regular rate Rhythm: regular rhythm GI Auscultation: normoactive bowel sounds Palpation: soft and no hepatosplenomegaly external exam normal Back/Spine Cervical Spine: cervical ROM normal Thoracic Spine / Upper Back: normal to inspection Lumbar Spine / Lower Back: normal to inspection Extremity normal to inspection General Extremity: normal exam except as noted Skin Wounds: wounds noted No drainage, margins, No malodorous, No surrounding erythema and other R mancilla Neuro oriented x3 Psych Appearance: grossly normal Speech: normal speech Thought Content: normal thought content Judgement: judgement good Debridement Note Debridement Note Post-Debridement Measurements and Additional Note: Post-Debridement Measurements/Treatment WC - Nurse 2 - General Ulcer CM Notes Start: 03/05/21 09:36 Freq: Status: Active Protocol: Activity Type Activity Date Activity User E-Sign Co-Sign Detail Recorded Client Recorded Date Recorded By Document 03/05/21 10:07 MW [id number] 03/05/21 10:09 MW 03/05/21 10:07 Wound Center Nurse 2 #1- R MANCILLA -Time 10:08 -Correct Patient Yes -Correct Side, Site, Position Yes -Correct Procedure Yes -Procedure Performed Yes -Type of Procedure Debridement -Clinical Debridement Epidermis / Dermis -Tissue Removed Epidermis -Post Debridement (cm) - Length 0.3 -Post Debridement (cm) - Width 0.3 -Post Debridement (cm) - Depth 0.1 -Total Square (Post) (cm) 0.09 -Area of Debridement (cm) - Length 0.3 -Area of Debridement (cm) - Width 0.3 -Total Square (Area) (cm) 0.09 -Tunneling No -Undermining/Tunneling No -Circular Undermining No -Wound/Ulcer Outcome Not Healed -Ulcer Cleansing Rinsed/ Irrigated with Saline -Foul Odor after Cleansing No -Bioengineered Tissue No -Bleeding Controlled with Pressure -Offloading No -Treatment Response Procedure Tolerated Well -Debridement - Open, 1st 20sq cm Yes Pain Scale: 0-10 Numeric Is Patient Pain Free? Yes WC - Nurse 3 - General Ulcer D/C NN Start: 03/05/21 09:36 Freq: Status: Active Protocol: Activity Type Activity Date Activity User E-Sign Co-Sign Detail Recorded Client Recorded Date Recorded By Document 03/05/21 10:09 MW [id number] 03/05/21 10:10 MW 05/05/21 10:09 Wound Care Nurse 3 #1- R MANCILLA -Ulcer Cleansing Rinsed/ Irrigated with Saline -Foul Odor after Cleansing No -Negative Pressure Wound Therapy N/A -Primary Dressing Applied Promogran -Primary Dressing Covered/Secured with Dry Gauze, Secured with Tape -Promogran 1 Treatment Response Procedure Tolerated Well Pain Scale: 0-10 Numeric Is Patient Pain Free? Yes Teaching: Wound Center Dressing Your Wound -Person Taught Patient,Family -Teaching Method Discussion -Response to teaching Verbalize understanding WC - Visit Discharge Discharge Condition Stable Ambulatory Status Ambulatory Transportation Private Auto Accompanied by Medication Reconcilliation completed & No provided to patient/care provider Clinical Summary of Care Provided Yes Laterality: Right Type of Debridement: Excisional debridement Anesthesia Used: 5% Lidocaine Gel Depth: Down to and including healthy tissue Percentage of wound debrided: 100 Instrument Used: 3mm curette Tissue Removed: fibrin Severity: Limited To Skin Breakdown Amount of bleeding with debridement: None Bleeding Controlled with: Pressure Patient tolerated procedure: Patient tolerated procedure well
== END 2021-03-31 23:59 ==
LOC: WC 09:45
PROVIDERS: PCP Family Medicine; Visit Provider Nurse Practitioner
DX: L97.912 Non-pressure chronic ulcer of unspecified part of right lower leg with fat layer exposed (principal); T81.89XD Other complications of procedures, not elsewhere classified, subsequent encounter; Z98.890 Other specified postprocedural states; R60.0 Localized edema
CPT/HCPCS: 97597

== ENCOUNTER 2022-08-07 12:06 | Emergency (ER) | payer MEDICARE, SELFPAY ==
[2022-08-07 12:06] VITALS: BP 159/77; PULSE 56; RESP 18; TEMP 36.1; O2SAT 97; BMI 28.7
--- NOTE | 2022-08-07 12:49 | CT_ITS ---
STUDY: CT ABDOMEN AND PELVIS WITHOUT CONTRAST REASON FOR EXAM: Male, 76 years old. Pain RADIATION DOSAGE (If Supplied By Facility): CTDIvol = ( 17.05 ) mGy, DLP = ( 905.90 ) mGycm TECHNIQUE: Transaxial images were obtained from the dome of the diaphragm to the symphysis pubis without oral contrast, and without intravenous contrast. Sagittal and coronal images were reconstructed. Individualized dose optimization techniques were used for this CT. COMPARISON: 07/07/2015 FINDINGS: The visualized lung bases are unremarkable. The visualized portions of the heart are within normal limits. Normal liver. There are surgical clips in the gallbladder fossa consistent with a prior cholecystectomy. Normal spleen. Normal pancreas. Normal bilateral adrenal glands. Multiple bilateral nonobstructing renal stones. 6 mm obstructing stone in the proximal right ureter with moderate hydronephrosis and perinephric edema. Normal visualized stomach. Normal small intestine. There are multiple colonic diverticula consistent with diverticulosis. Suture line in the sigmoid colon. The appendix is visualized and appears normal. Normal abdominal aorta. Normal inferior vena cava. Normal retroperitoneum. Normal urinary bladder. There are prostatic calcifications. There is a small umbilical hernia containing fat. Mild levoscoliosis of lumbar spine with degenerative disc disease. CT/Abdomen/Pelvis without Cont IMPRESSION: 6 mm obstructing stone in the proximal right ureter with moderate hydronephrosis. Electronically Signed: Federico Ivey MD at 13:40 EDT ,
[2022-08-07] MEDS: Ondansetron 4 MG/2 ML Vial IV (12:55)
[2022-08-07] MEDS: 0.9% Normal Saline 1,000 ML 1000 ML IV (12:55)
[2022-08-07] MEDS: Morphine 4 MG/ML Syringe IV ×2 (12:55→15:02)
--- NOTE | 2022-08-07 12:57 | EDS_ITS ---
HPI <GRAHAM Campos - Last Filed: 08/07/22 17:33> History of Present Illness Chief Complaint: Flank Pain Narrative Narrative: 76-year-old male with history of kidney stones, hypertension presents to the emergency part with a sharp shooting pain to his right flank that radiates to his right groin. Patient states he became sweaty, nauseated. Patient has had kidney stones in the past last one being 3 to 4 years ago and he states it feels similar. Patient states that the pain got so severe he almost vomited and is here for evaluation. He denies any fevers or chills. Patient states he is having difficulty urinating since this pain is started. He denies any known blood in his urine. [facility] <GRAHAM Campos - Last Filed: 08/07/22 17:33> [facility] Medical History (Updated 08/07/22 @ 17:29 by GRAHAM Campos) History of kidney stones Home Medications allopurinol 100 mg tablet 100 mg PO DAILYCM gout 07/07/15 [History Last Taken 07/12/15 08:00 100 MG] vit A 300 mcg-C 200 mg-E 27 mg-lutein 2 mg and minerals tablet (Ocuvite with Lutein) 1 ea PO DAILY supplement 07/07/15 [History Last Taken 07/07/15 17:00] tamsulosin 0.4 mg capsule 0.4 mg PO QHS urine flow 07/15/16 [History Last Taken Unknown] cholecalciferol (vitamin D3) 125 mcg (5,000 unit) capsule 5,000 unit PO DAILY supplement 06/05/19 [History Last Taken Unknown] atorvastatin 40 mg tablet 40 mg PO DAILY cholesterol 12/02/20 [History Last Taken Unknown] metoprolol tartrate 25 mg tablet 25 mg PO BID HTN 12/02/20 [History Last Taken 12/16/20 03:30 25 MG] aspirin 81 mg chewable tablet 81 mg PO BID ##60 12/17/20 [Rx Last Taken Unknown] L.acidoph, paracasei,B. lactis 10 billion cell capsule 1 each PO DAILY 01/15/21 [History Last Taken Unknown] acetaminophen 500 mg tablet 650 mg PO Q8H PRN Pain 1-10 Or Fever 01/15/21 [History Last Taken Unknown] ondansetron 4 mg disintegrating tablet 4 mg PO Q8H PRN nausea and vomiting #10 tabs 08/07/22 [Rx Last Taken Unknown] oxycodone-acetaminophen 5 mg-325 mg tablet (Percocet) 1 tab PO Q6H PRN pain 3 days #12 tabs 08/07/22 [Rx Last Taken Unknown] Allergy/AdvReac Type Severity Reaction Status Date / Time shellfish derived Allergy Pain in Verified 01/15/21 10:08 joints ORGAN MEATS AdvReac Pain in Uncoded 12/16/20 06:03 joints Social History Smoking Status: Never smoker ROS <GRAHAM Campos - Last Filed: 08/07/22 17:33> ROS ED ROS Narrative Constitutional: Negative for fever, chills, weight loss, weakness. Positive for diaphoresis Eyes: Negative for vision loss, vision change, double vision ENT: Negative for any sore throat, ear pain, congestion Cardiovascular: Negative for any chest pain, tightness, palpitations Respiratory: Negative for any cough, sputum production, hemoptysis, dyspnea, dyspnea on exertion, orthopnea Gastrointestinal: Negative for any vomiting, diarrhea, constipation, blood in stool, blood in vomit. Positive right-sided flank pain, testicular pain, nausea : Negative for any urinary frequency, dysuria, retention, blood in urine Muscle skeletal: Negative for any muscle joint pain, stiffness, myalgias, arthralgias, neck pain, back pain Neurological: Negative for any headache, syncope, numbness or tingling, dizziness Skin: Negative for any rashes, lumps, itching, abrasions, lacerations Psychiatric: Negative for any depression, anxiety, stress, suicidal ideation, homicidal ideation Hematologic: Negative for any easy bruising, excessive bruising, easy bleeding Allergies: Negative for any eczema, hives, rash EXAM <GRAHAM Campos - Last Filed: 08/07/22 17:33> Physical Exam Narrative Exam Narrative: Vital signs reviewed. Patient appears to be in mild amount of pain to the right flank HEET: Head normocephalic atraumatic, TMs clear bilaterally. Posterior pharynx is clear, moist mucous membranes. Nares clear bilaterally. Neck: Supple with no lymphadenopathy or tenderness. No signs of meningismus, negative jolt sign. Cardiac: Regular rate and rhythm no murmurs gallops or rubs, equal peripheral pulses bilaterally. Respiratory: Lungs clear to auscultation bilaterally. No chest tenderness. Abdomen: Soft, nondistended. No abdominal bruit or pulsatile masses. No hepatosplenomegaly. Patient complains of tenderness to the right flank, right abdomen into the right lower groin Extremities: No peripheral edema, no signs of gross trauma or deformity. Active full range of motion of all extremities. Neuro: Cranial nerves II through XII intact, no focal neurological deficits. Skin: Clean dry and intact with no rash, purpura, petechiae, vesicles or pustules. Backs/flank: Positive right-sided CVA tenderness., no midline spinal tenderness, no deformity. Psych: Normal mood and affect. No SI, HI or acute psychosis. Const Vital Signs: 08/07/22 12:06 08/07/22 14:09 08/07/22 15:04 Temperature 97.0 F L Temperature Source Temporal Pulse Rate 56 L 87 72 Respiratory Rate 18 16 18 Blood Pressure 159/77 H 139/88 H 160/87 H Blood Pressure Mean 104 105 111 Pulse Ox 97 99 98 Oxygen Delivery Method Room Air Room Air 08/07/22 16:02 08/07/22 17:16 Temperature Temperature Source Pulse Rate 79 90 Respiratory Rate 18 18 Blood Pressure 146/93 H 155/100 H Blood Pressure Mean 110 118 Pulse Ox 98 97 Oxygen Delivery Method Room Air Room Air Positive well nourished and well developed General Appearance ED: well developed <Dr. Wanda Foley DO - Last Filed: 08/10/22 03:32> Physical Exam Const Vital Signs: 08/07/22 12:06 08/07/22 14:09 08/07/22 15:04 Temperature 97.0 F L Temperature Source Temporal Pulse Rate 56 L 87 72 Respiratory Rate 18 16 18 Blood Pressure 159/77 H 139/88 H 160/87 H Blood Pressure Mean 104 105 111 Pulse Ox 97 99 98 Oxygen Delivery Method Room Air Room Air 08/07/22 16:02 08/07/22 17:16 Temperature Temperature Source Pulse Rate 79 90 Respiratory Rate 18 18 Blood Pressure 146/93 H 155/100 H Blood Pressure Mean 110 118 Pulse Ox 98 97 Oxygen Delivery Method Room Air Room Air MDM <GRAHAM Campos - Last Filed: 08/07/22 17:33> MDM Lab Data Labs: Laboratory Results - last 24 hr 08/07/22 08/07/22 08/07/22 12:45 12:45 15:30 WBC 8.6 RBC 4.96 Hgb 15.3 Hct 46.0 MCV 92.7 MCH 30.8 MCHC 33.3 RDW Std Deviation 47.0 H RDW Coeff of Benjamin 13.9 Plt Count 175 MPV 10.3 Immature Gran % (Auto) 0.300 Neut % (Auto) 78.0 H Lymph % (Auto) 15.1 L [place] % (Auto) 5.5 Eos % (Auto) 1.0 Baso % (Auto) 0.1 Absolute Neuts (auto) 6.7 Absolute Lymphs (auto) 1.30 Nucleated RBC % 0 Sodium 144 Potassium 3.8 Chloride 113 H Carbon Dioxide 24.0 Anion Gap 7 BUN 21 H Creatinine 1.21 Estim Creat Clear Calc 52.79 Est GFR (MDRD) Af Amer 75 Est GFR (MDRD) Non-Af 62 BUN/Creatinine Ratio 17.4 Glucose 147 H Calcium 9.4 Total Bilirubin 0.70 AST 39 H ALT 51 Alkaline Phosphatase 51 Total Protein 6.7 Albumin 3.8 Globulin 2.9 Albumin/Globulin Ratio 1.3 Lipase 354 Urine Color Deyanira Urine Clarity Clear Urine pH 6.5 Ur Specific [place] 1.015 Urine Protein 15 H Urine Glucose (UA) Normal Urine Ketones 5 H Urine Occult Blood 10 H Urine Nitrite Negative Urine Bilirubin Negative Urine Urobilinogen Normal Ur Leukocyte Esterase 25 H Urine RBC 5-10 SEEN Urine WBC 0-5 SEEN Ur Squamous Epith Cells 0-5 SEEN Urine Bacteria 1+ Urine Mucus 0 SEEN Radiography Diagnostic Testing: Clinical Impression(s) from Imaging Studies Abdomen/Pelvis CT 08/07/22 12:49 IMPRESSION: 6 mm obstructing stone in the proximal right ureter with moderate hydronephrosis. Electronically Signed: Federico Ivey MD at 13:40 EDT , Treatment and Re-Evaluation Narrative: Patient on initial exam was in moderate distress secondary to right-sided flank pain. Patient states that he has right-sided flank pain that began suddenly today. Patient does have history of kidney stones. Patient's vital signs were stable he does not look septic. Patient's laboratory studies show a normal CBC, patient's CMP was unremarkable, patient's lipase was 354. Patient's urinalysis did show some blood, no signs or symptoms of infection. Patient did receive a CT scan of the abdomen pelvis without contrast, this did show a 6 mm obstructing stone in the proximal right ureter with moderate hydronephrosis. Patient was given 4 of morphine, 0.5 mg of Dilaudid, redosed with 4 mg of morphine. After IV fluids, patient was able to urinate without difficulty. On reassessment, patient states he still feels sore however the pain is much b rigoberto, he does want to get treated outpatient. Patient does not want to be admitted and will follow up with his urologist outpatient. Patient be given a prescription for Percocet, Zofran. He is instructed to return for any worsening back pain, fever chills nausea vomiting. I did speak with Dr. Villa who will see him outpatient. Patient stable for discharge <Dr. Wanda Foley, - Last Filed: 08/10/22 03:32> [facility] Lab Data Attestation: I reviewed the patient's lab results. Labs: Laboratory Results - last 24 hr 08/07/22 08/07/22 08/07/22 12:45 12:45 15:30 WBC 8.6 RBC 4.96 Hgb 15.3 Hct 46.0 MCV 92.7 MCH 30.8 MCHC 33.3 RDW Std Deviation 47.0 H RDW Coeff of Benjamin 13.9 Plt Count 175 MPV 10.3 Immature Gran % (Auto) 0.300 Neut % (Auto) 78.0 H Lymph % (Auto) 15.1 L [place] % (Auto) 5.5 Eos % (Auto) 1.0 Baso % (Auto) 0.1 Absolute Neuts (auto) 6.7 Absolute Lymphs (auto) 1.30 Nucleated RBC % 0 Sodium 144 Potassium 3.8 Chloride 113 H Carbon Dioxide 24.0 Anion Gap 7 BUN 21 H Creatinine 1.21 Estim Creat Clear Calc 52.79 Est GFR (MDRD) Af Amer 75 Est GFR (MDRD) Non-Af 62 BUN/Creatinine Ratio 17.4 Glucose 147 H Calcium 9.4 Total Bilirubin 0.70 AST 39 H ALT 51 Alkaline Phosphatase 51 Total Protein 6.7 Albumin 3.8 Globulin 2.9 Albumin/Globulin Ratio 1.3 Lipase 354 Urine Color Deyanira Urine Clarity Clear Urine pH 6.5 Ur Specific [place] 1.015 Urine Protein 15 H Urine Glucose (UA) Normal Urine Ketones 5 H Urine Occult Blood 10 H Urine Nitrite Negative Urine Bilirubin Negative Urine Urobilinogen Normal Ur Leukocyte Esterase 25 H Urine RBC 5-10 SEEN Urine WBC 0-5 SEEN Ur Squamous Epith Cells 0-5 SEEN Urine Bacteria 1+ Urine Mucus 0 SEEN Radiography Diagnostic Testing: Clinical Impression(s) from Imaging Studies Abdomen/Pelvis CT 08/07/22 12:49 IMPRESSION: 6 mm obstructing stone in the proximal right ureter with moderate hydronephrosis. Electronically Signed: Federico Ivey MD at 13:40 EDT , Treatment and Re-Evaluation Narrative: Patient on initial exam was in moderate distress secondary to right-sided flank pain. Patient states that he has right-sided flank pain that began suddenly today. Patient does have history of kidney stones. Patient's vital signs were stable he does not look septic. Patient's laboratory studies show a normal CBC, patient's CMP was unremarkable, patient's lipase was 354. Patient's urinalysis did show some blood, no signs or symptoms of infection. Patient did receive a CT scan of the abdomen pelvis without contrast, this did show a 6 mm obstructing stone in the proximal right ureter with moderate hydronephrosis. Patient was given 4 of morphine, 0.5 mg of Dilaudid, redosed with 4 mg of morphine. After IV fluids, patient was able to urinate without difficulty. On reassessment, patient states he still feels sore however the pain is much better, he does want to get treated outpatient. Patient does not want to be admitted and will follow up with his urologist outpatient. Patient be given a prescription for Percocet, Zofran. He is instructed to return for any worsening back pain, fever chills nausea vomiting. I did speak with Dr. Villa who will see him outpatient. Patient stable for discharge Patient evaluated independently and in conjunction with nurse practitioner. Agree with note above unless documented otherwise. I was personally present or immediately available for all clinically relevant procedures and performed my own physical exam and review of systems. Patient is a 76-year-old male presenting with right sided flank pain. It radiates to his groin. Started suddenly. Has associated diaphoresis and nausea. Has a history of kidney stones and follows with Dr. Mejía. Does take Flomax at baseline. Was feeling well before symptoms started today. No other complaints at this time. The time I evaluated patient he has improvement of symptoms after receiving IV morphine and IV fluids. Patient well-appearing no acute distress. Head normocephalic/atraumatic. Moist mucous membranes. Neck is supple. Lungs are clear to auscultation bilaterally. Heart regular rate and rhythm. No CVA tenderness. Abdomen is soft and n ondistended. Mild tenderness in the right mid abdomen. No pulsatile mass appreciated. 2+ DP pulses. Normal strength and sensation of the lower extremities. Patient behaving appropriate. Patient's presentation highly consistent with kidney stone especially given his history. Vital signs stable. Patient is treated with multiple doses of pain medication. Work-up including CBC and CMP largely normal. Urinalysis not consistent with infection but does show inflammatory changes. CT of the abdomen pelvis shows a 6 mm obstructing stone of the proximal right ureter with moderate hydronephrosis. On repeat evaluation patient feels much better but continues to have an achy pain. Would like to trial outpatient pain management and treatment but understands that he might need to return to the emergency room if he cannot get his pain under control. He will follow-up with his urologist. Given that he has adequate pain control and no YANG or signs of associated infection I believe he is a good candidate for outpatient treatment. Discharged home in stable and improved condition. Discharge Plan Triage Chief Complaint: Flank Pain ED Midlevel Provider: Mike Mancia ED Provider: Wanda Foley Dx/Rx/DC Orders Clinical Impression: Acute flank pain, Kidney calculi, Dysuria Instructions: ED Kidney Stone w/ Colic Prescriptions: New oxycodone-acetaminophen [Percocet] 5-325 mg tablet 1 tab PO Q6H PRN (Reason: pain) 3 Days Qty: 12 0RF ondansetron 4 mg tablet,disintegrating 4 mg PO Q8H PRN (Reason: nausea and vomiting) Qty: 10 0RF No Action allopurinol 100 MG tablet 100 mg PO DAILYCM Label Comments: Gout Ocuvite with Lutein 1 EACH tablet 1 ea PO DAILY Label Comments: Vitamin tamsulosin 0.4 MG capsule 0.4 mg PO QHS Label Comments: Urination cholecalciferol (vitamin D3) 5,000 UNIT capsule 5,000 unit PO DAILY atorvastatin 40 MG tablet 40 mg PO DAILY metoprolol tartrate 25 MG tablet 25 mg PO BID aspirin 81 MG tablet,chewable 81 mg PO BID Qty: 60 0RF L.acidoph, paracasei,B. lactis 1 EACH capsule 1 each PO DAILY acetaminophen 500 MG tablet 650 mg PO Q8H PRN (Reason: Pain 1-10 Or Fever) Primary Care Provider: Thor Eason Referrals: Nikolay Mejía MD [Med Staff - Active Staff] - Thor Eason MD [Primary Care Provider] - Activity Restrictions/Additional Instructions: You need to follow-up with your urologist, try to follow-up Wednesday or Wednesday this upcoming week. Please return for uncontrolled pain, back pain, fever chills nausea vomiting. Print Language: Maldivian Disposition Disposition: Home, Self Care
[2022-08-07 13:09] LABS: Absolute Neutrophil Count 6.7 X10^3/uL (2.0-7.7); Basophil# 0.01 X10^3/uL; Basophil% 0.1 % (0-1); Eosinophil# 0.09 X10^3/uL; Hemoglobin 15.3 g/dL (13.0-16.5); Lymphocyte % 15.1 % (19-41); Mean Corp Hgb Conc 33.3 g/dL (32-36); Mean Corpuscular Hgb 30.8 pg (27.0-32.0); Mean Corpuscular Volume 92.7 fL (80-94); Mean Platelet Vol. 10.3 fl (6.2-12.0); Monocyte# 0.47 X10^3/uL; Monocyte% 5.5 % (0-10); NRBC Flagged by Analyzer 0 % (0-5); Neutrophil # 6.72 X10^3/uL (2.7-7.7); Platelet Count 175 K/mm3 (150-450); RBC Distribution Width CV 13.9 % (11.6-14.6); Red Blood Count 4.96 M/mm3 (4.6-6.2); White Blood Count 8.6 K/mm3 (4.4-11.0)
[2022-08-07] MEDS: HYDROmorphone 0.5 MG/0.5 ML SYRINGE IV (13:28)
[2022-08-07 13:30] LABS: ALB/GLOB Ratio 1.3 RATIO (0.9-2.4); AST(SGOT) 39 U/L (15-37); Alanine Aminotransfer ALT/SGPT 51 U/L (16-61); Albumin, Serum 3.8 g/dL (3.2-5.0); Alkaline Phosphatase 51 U/L (45-117); Anion Gap 7 (5-15); BUN 21 mg/dL (7-18); BUN/Creat Ratio 17.4 RATIO (10-20); Calcium,Total 9.4 mg/dL (8.5-10.1); Chloride 113 mmol/L (98-107); Creatinine, Serum 1.21 mg/dL (0.70-1.30); EST Glomerular Filtration Rate 62 mL/min (>60); Est Glom Filt Rate - Afr Amer 75 mL/min (>60); Estimated Creatinine Clearance 52.79 ml/min; Globulin 2.9 g/dL (2.2-4.2); Glucose 147 mg/dL (74-106); Lipase 354 U/L (73-393); Potassium 3.8 mmol/L (3.5-5.1); Protein, Total 6.7 g/dL (6.4-8.2); Sodium Level 144 mmol/L (136-145)
[2022-08-07 14:09] VITALS: BP 139/88; PULSE 87; RESP 16; O2SAT 99
[2022-08-07 15:04] VITALS: BP 160/87; PULSE 72; RESP 18; O2SAT 98
[2022-08-07 15:36] LABS: Mucous, Urine 0 SEEN /hpf (<or=2+)
[2022-08-07 15:40] LABS: Color, Urine Amber (Yellow); Glucose, Dipstick Normal (Normal); Ketone-Dipstick 5 mg/dl (Negative); Leukocyte Esterase-Dipstick 25 /ul (Negative); Nitrite-Dipstick Negative (Negative); Occult Blood-Urine 10 /ul (Negative); Protein-Dipstick 15 mg/dl (Negative); Specific Gravity, Urine 1.015 (1.002-1.030); Urine Bilirubin Dipstick Negative (Negative); Urine Clarity Clear (Clear); Urine Urobilinogen Normal (Normal); Urine pH 6.5 (5.0 - 8.0)
[2022-08-07 15:59] LABS: Bacteria 1+ /hpf (None Seen); Red Blood Cells-Urine 5-10 SEEN /hpf (0-5); Squamous Epithelial Cells - UA 0-5 SEEN /hpf (0-5); White Blood Cells 0-5 SEEN /hpf (0-5)
[2022-08-07 16:02] VITALS: BP 146/93; PULSE 79; RESP 18; O2SAT 98
[2022-08-07 17:16] VITALS: BP 155/100; PULSE 90; RESP 18; O2SAT 97
[2022-08-07] MEDS: Ondansetron ODT 4 MG Tablet PO (17:47)
[2022-08-07] MEDS: oxyCODONE 5 MG Tablet PO (17:47)
[2022-08-07 17:49] VITALS: BP 155/76; PULSE 83
== END 2022-08-07 17:53 | disposition home or self-care (01) ==
PROVIDERS: Nurse Practitioner; Emergency Provider Emergency Medicine; PCP Family Medicine; Visit Provider Emergency Medicine
DX: N13.2 Hydronephrosis with renal and ureteral calculous obstruction (principal); R10.2 Pelvic and perineal pain; I10 Essential (primary) hypertension; R30.0 Dysuria; Z87.442 Personal history of urinary calculi; Z79.82 Long term (current) use of aspirin
CPT/HCPCS: 74176; 80053; 81001; 83690; 85025; 96361; 96374; 96375; 96376; 99283; J7030; A4216; J2405

== ENCOUNTER 2022-08-12 13:31 | Day surgery (SDC) | payer MEDICARE, SELFPAY ==
[2022-08-12] MEDS: Lactated Ringers 1,000 ML 15 ML IV (13:40)
[2022-08-12 14:17] VITALS: BP 139/99; PULSE 80; RESP 18; TEMP 36.6; O2SAT 93; BMI 29.6
[2022-08-12] MEDS: Cefazolin 2 GM in 0.9% Normal Saline 100 ML IV (17:17)
--- NOTE | 2022-08-12 17:58 | DCINST_ITS ---
Discharge Instructions Diet Discharge Diet: No restrictions, Light diet - advance as tolerated and Soft diet Activity Discharge Activity: Return to Normal Activity Follow Up Care Please Follow Up With: Nikolay Mejía MD When: call for appt 2 weeks. Test Results: Test results from this visit will be discussed in further detail at your follow- up appointment, if applicable. Discharge Plan Admission Primary Reason for Your Visit: Right stent and ESWL Attending Provider: Nikolay Mejía Primary Care Provider: Thor Esaon Instructions Patient Instructions: Shock Wave Lithotripsy Discharge Orders/Prescriptions Prescriptions: New ciprofloxacin HCl [Cipro] 500 mg tablet 500 mg PO BID Qty: 10 0RF oxycodone-acetaminophen 5-325 mg tablet 1 tab PO Q6H PRN (Reason: pain) 7 Days Qty: 14 0RF Continued allopurinol 100 MG tablet 100 mg PO DAILYCM Label Comments: Gout Ocuvite with Lutein 1 EACH tablet 1 ea PO DAILY Label Comments: Vitamin tamsulosin 0.4 MG capsule 0.4 mg PO QHS Label Comments: Urination cholecalciferol (vitamin D3) 5,000 UNIT capsule 5,000 unit PO DAILY atorvastatin 40 MG tablet 40 mg PO DAILY metoprolol tartrate 25 MG tablet 25 mg PO BID aspirin 81 MG tablet,chewable 81 mg PO BID Qty: 60 0RF acetaminophen 500 MG tablet 650 mg PO Q8H PRN (Reason: Pain 1-10 Or Fever) oxycodone-acetaminophen [Percocet] 5-325 mg tablet 1 tab PO Q6H PRN (Reason: pain) 3 Days Qty: 12 0RF finasteride 5 mg Tablet 5 mg PO DAILY vitamin B complex Capsule ezetimibe 10 mg Tablet 5 mg Referrals / Follow Up: Nikolay Mejía MD [Med Staff - Active Staff] - Thor Eason MD [Primary Care Provider] - Disposition Disposition (needs filled in before D/C Order can be placed): Home, Self Care
--- NOTE | 2022-08-12 17:58 | HP.PCM_ITS ---
HPI - General General Date of Service: 08/12/22 HPI Narrative MYNOR CHIN, is a 76 M who presents for treatment of a distal right ureteral calculi and placement of a stent [facility] Medical History Cardiology follow-up encounter Gout History of diverticulitis History of echocardiogram History of kidney stones History of stress test Hypertension Leg cramps Non-smoker Wears glasses Home Medications allopurinol 100 mg tablet 100 mg PO DAILYCM gout 07/07/15 [History Last Taken 07/12/15 08:00 100 MG] vit A 300 mcg-C 200 mg-E 27 mg-lutein 2 mg and minerals tablet (Ocuvite with Lutein) 1 ea PO DAILY supplement 07/07/15 [History Last Taken 07/07/15 17:00] tamsulosin 0.4 mg capsule 0.4 mg PO QHS urine flow 07/15/16 [History Last Taken Unknown] cholecalciferol (vitamin D3) 125 mcg (5,000 unit) capsule 5,000 unit PO DAILY supplement 06/05/19 [History Last Taken Unknown] atorvastatin 40 mg tablet 40 mg PO DAILY cholesterol 12/02/20 [History Last Taken Unknown] metoprolol tartrate 25 mg tablet 25 mg PO BID HTN 12/02/20 [History Last Taken 12/16/20 03:30 25 MG] aspirin 81 mg chewable tablet 81 mg PO BID ##60 12/17/20 [Rx Last Taken Unknown] acetaminophen 500 mg tablet 650 mg PO Q8H PRN Pain 1-10 Or Fever 01/15/21 [History Last Taken Unknown] oxycodone-acetaminophen 5 mg-325 mg tablet (Percocet) 1 tab PO Q6H PRN pain 3 days #12 tabs 08/07/22 [Rx Last Taken Unknown] ezetimibe 10 mg tablet 5 mg 08/11/22 [History Last Taken Unknown] finasteride 5 mg tablet 5 mg PO DAILY 08/11/22 [History Last Taken Unknown] vitamin B complex cap 08/11/22 [History Last Taken Unknown] ciprofloxacin HCl 500 mg tablet (Cipro) 500 mg PO BID #10 tabs 08/12/22 [Rx Last Taken Unknown] oxycodone-acetaminophen 5 mg-325 mg tablet 1 tab PO Q6H PRN pain 7 days #14 tabs 08/12/22 [Rx Last Taken Unknown] Allergy/AdvReac Type Severity Reaction Status Date / Time shellfish derived Allergy Pain in Verified 01/15/21 10:08 joints ORGAN MEATS AdvReac Pain in Uncoded 12/16/20 06:03 joints Surgical History History of back surgery History of bilateral knee replacement History of colon surgery Hx of CABG Hx of cholecystectomy Hx of colonoscopy Hx of tonsillectomy Hx of wisdom tooth extraction Social History Smoking Status: Never smoker Vital Signs Vital Signs Vital Signs: 08/12/22 14:17 08/12/22 14:17 Temperature 97.8 F Temperature Source Temporal Pulse Rate 80 Respiratory Rate 18 Respiratory Pattern Normal Blood Pressure 139/99 H Blood Pressure Mean 112 Blood Pressure Source Monitor Blood Pressure Position Semi-Fowlers Blood Pressure Location Right Arm Pulse Ox 93 Oxygen Delivery Method Room Air Weight Weight: 91 kg Body Mass Index (BMI) 29.6
--- NOTE | 2022-08-12 18:04 | PCM.OPRPT ---
Report of Operation Date of Procedure: 08/12/22 Pre-Operative Diagnosis: Right ureteral calculi Post-Operative Diagnosis: The same Surgery/Procedure Performed:: Cystoscopy and right stent placement, right extracorporeal shockwave lithotripsy. Description of Surgical Findings:: Patient presents to the hospital for treatment of a kidney stone with shockwave lithotripsy. In the preoperative area and x-ray was done to confirm the location of the stone. The x-ray was reviewed and the stone location was reviewed. In the preoperative setting I spoke with the patient regarding the treatment of the stone how the treatment would be conducted and the expectations after surgery. The patient understands there is a risk of bleeding and infection. Also discussed the very rare risk of hematoma or damage to the kidney. We also discussed the risk that the shockwave machine will fail to break the stone adequately and that the patient may need other surgical procedures. We also discussed the possibility that the patient may need a stent after the procedure. After reviewing the procedure with the patient, the patient is signed the consent form all the patient's questions were addressed and was taken back to the operating room for treatment of a kidney stone. Patient was taken back to the operating room, patient was identified by the nursing staff, we identified the side of the treatment and the patient side of treatment had been marked by my initials. The patient underwent general anesthetic and was placed supine on the lithotripter table. We then used fluoroscopy to identify the stone on the right side. The urethra and genitals were prepped and draped in usual sterile fashion. Using a 21 Guyanese rigid cystourethroscope the entire length of the urethra was normal then went into the bladder. Identified the trigone the left and right ureteral orifice. I then cannulated the Right ureteral orifice and advanced a wire up into the kidney. I then backloaded a 5 [place]ese open ended catheter over the wire and injected contrast to delineate the anatomy. After the retrograde was performed I then used fluoroscopic images and guidance to advanced a wire up into the kidney and over the 0.038 glidewire I advanced a 6 [place]ese by 26 cm double pigtail stent. I then pulled the 0.038 Glidewire off and the stent coiled in the kidney bladder good position. The bladder was then drained. We confirmed the position of the stent by fluoroscopy.We then positioned the patient under the lithotripter and we used triangulation technique to identify the location of the stone and then we made sure that the stone was engaged in the F2 focal point of F2 Donier lithoprior machine. Once the patient was positioned appropriately and the stone was identified and placed in the F2 focal point of the lithotripter machine we then proceeded with shockwave lithotripsy. In the beginning the shockwave was delivered at a rate of 90 shocks per minute, we monitor the EKG for any ectopy. The power was slowly increased to 5 kV and subsequently at the 7 kV. We then proceeded with the treatment we move the therapy had around during the treatment to make sure the stone stayed in the F2 focal point during the entire treatment and after 4000 shockwaves were delivered to the stone under fluoroscopic guidance the treatment was completed. The patient was given instructions to call the office to make an a follow-up appointment with an xray to evaluate the success of the treatment, pateint understands that its possible the stones may need another procedure.At this point the patient's anesthetic was reversed patient was extubated and taken back to the PACU in stable condition. Surgeon: Nikolay Mejía Type of Anesthesia: General Drains: stent Admit VTE Documentation VTE Present on Admission: No VTE Mechan Device Prophylaxis: SCD's VTE Pharm Prophylaxis ordered?: No
[2022-08-12 18:29] VITALS: BP 129/75; BP 139/99; PULSE 79; RESP 18; TEMP 36.9; O2SAT 93
[2022-08-12 18:30] VITALS: BP 129/75; BP 139/99; PULSE 83; RESP 18; O2SAT 93
[2022-08-12 18:40] VITALS: BP 139/99; BP 144/86; PULSE 90; RESP 18; O2SAT 94
[2022-08-12 18:52] VITALS: BP 139/99; BP 151/83; PULSE 88; RESP 18; TEMP 37.1; O2SAT 95
[2022-08-12] MEDS: Ciprofloxacin 500 MG Tablet PO (19:14)
[2022-08-12 19:40] VITALS: BP 139/99; BP 149/94; PULSE 100; RESP 18; TEMP 37.7; O2SAT 93
== END 2022-08-12 19:43 | disposition home or self-care (01) ==
LOC: SDC 13:32 → AC 13:33
PROVIDERS: PCP Family Medicine; Referring Provider Urology; Visit Provider Urology
PROC: (CPT 50590; principal; 2022-08-12 16:05)
DX: N20.1 Calculus of ureter (principal); I10 Essential (primary) hypertension; Z79.82 Long term (current) use of aspirin; Z79.899 Other long term (current) drug therapy; Z95.1 Presence of aortocoronary bypass graft
CPT/HCPCS: 50590; 52332; 00873; J7120; C1769; C2617; J2405

== ENCOUNTER 2022-11-11 17:36 | Inpatient (IN) | payer OTHER, SELFPAY ==
[2022-11-11 17:37] VITALS: BP 168/102; PULSE 103; RESP 18; TEMP 36.2; O2SAT 94; BMI 28.8
--- NOTE | 2022-11-11 18:14 | EDS_ITS ---
HPI History of Present Illness Chief Complaint: Flank Pain Informant: patient Narrative Narrative: Patient presents here with pain difficult to manage from a kidney stone. He has known multiple kidney stones. He has had lithotripsy twice. He started with pain on the left side on Wednesday or Wednesday. It was in the left flank radiating around to the front. He was seen at [facility] where CAT scan and what sounds like blood work was done. CT scan showed a stone on that side but I do not know the details. We will try to obtain this. He was given oxycodone for the pain. It was working well. He saw his urologist Dr. Mejía on Wednesday. He was doing well still then and up to last night. But now the medicine does not seem to be controlling the pain. It is the same type in character it is just hard to control. When the pain is bad he gets nauseated but he is never vomited. He has no history of AAA. Only blood thinner is baby aspirin which he takes for known heart disease. The plan was to have what sounds like laser treatment in about 10 days. Patient does not think he can make it that far due to the pain at this time. He has no other symptoms. This patient does have complex medical history. He has known vascular disease but his images have not shown significant AAA. He also has a history of diverticulitis that could be confused with this but he states this pain is different and he reportedly had a CT just a few days ago. He is not having any GI symptoms such as diarrhea or blood in the stool. [facility] Medical History Cardiology follow-up encounter Gout History of diverticulitis History of echocardiogram History of kidney stones History of stress test Hypertension Leg cramps Non-smoker Wears glasses Home Medications allopurinol 100 mg tablet 100 mg PO DAILYCM gout 07/07/15 [History Last Taken 07/12/15 08:00 100 MG] vit A 300 mcg-C 200 mg-E 27 mg-lutein 2 mg and minerals tablet (Ocuvite with Lutein) 1 ea PO DAILY supplement 07/07/15 [History Last Taken 07/07/15 17:00] tamsulosin 0.4 mg capsule 0.4 mg PO QHS urine flow 07/15/16 [History Last Taken Unknown] cholecalciferol (vitamin D3) 125 mcg (5,000 unit) capsule 5,000 unit PO DAILY supplement 06/05/19 [History Last Taken Unknown] atorvastatin 40 mg tablet 40 mg PO DAILY cholesterol 12/02/20 [History Last Taken Unknown] metoprolol tartrate 25 mg tablet 25 mg PO BID HTN 12/02/20 [History Last Taken 12/16/20 03:30 25 MG] aspirin 81 mg chewable tablet 81 mg PO BID ##60 12/17/20 [Rx Last Taken Unknown] acetaminophen 500 mg tablet 650 mg PO Q8H PRN Pain 1-10 Or Fever 01/15/21 [History Last Taken Unknown] oxycodone-acetaminophen 5 mg-325 mg tablet (Percocet) 1 tab PO Q6H PRN pain 3 days #12 tabs 08/07/22 [Rx Last Taken Unknown] ezetimibe 10 mg tablet 5 mg PO DAILY 08/11/22 [History Last Taken Unknown] finasteride 5 mg tablet 5 mg PO DAILY 08/11/22 [History Last Taken Unknown] vitamin B complex 1 cap PO DAILY 08/11/22 [History Last Taken Unknown] ciprofloxacin HCl 500 mg tablet (Cipro) 500 mg PO BID #10 tabs 08/12/22 [Rx Last Taken Unknown] oxycodone-acetaminophen 5 mg-325 mg tablet 1 tab PO Q6H PRN pain 7 days #14 tabs 08/12/22 [Rx Last Taken Unknown] Allergy/AdvReac Type Severity Reaction Status Date / Time shellfish derived Allergy Pain in Verified 11/11/22 17:39 joints ORGAN MEATS AdvReac Pain in Uncoded 12/16/20 06:03 joints Surgical History History of back surgery History of bilateral knee replacement History of colon surgery Hx of CABG Hx of cholecystectomy Hx of colonoscopy Hx of tonsillectomy Hx of wisdom tooth extraction Social History Smoking Status: Never smoker ROS ROS ED Constitutional Constitutional ED: Denies chills or fever(s) ENT ENT ED: Denies rhinorrhea Cardiovascular Cardiovascular: Denies chest pain Respiratory/Chest Respiratory/Chest: Denies cough or dyspnea Gastrointestinal Gastrointestinal: Reports abdominal pain and nausea; Denies constipation, d iarrhea, melena or vomiting Genitourinary Genitourinary ED: Reports urinary frequency; Denies hematuria Musculoskeletal Musculoskeletal: Reports back pain Integumentary Denies rash Neurologic Neurologic: Denies headache(s) Endocrine Endocrinology: Denies polydipsia or polyuria Hematologic/Lymphatic Hematologic/Lymphatic: Denies easy bleeding Allergic/Immunologic Allergic/Immunologic ED: Denies urticaria EXAM Physical Exam Const Vital Signs: 11/11/22 17:37 11/11/22 17:49 11/11/22 19:36 Temperature 97.2 F L Temperature Source Temporal Pulse Rate 103 H Respiratory Rate 18 Respiratory Effort Normal Non-Labored Blood Pressure 168/102 H 154/92 H Blood Pressure Mean 124 112 Pulse Ox 94 Oxygen Delivery Method Room Air 11/11/22 21:36 Temperature Temperature Source Pulse Rate Respiratory Rate Respiratory Effort Blood Pressure 146/94 H Blood Pressure Mean 111 Pulse Ox Oxygen Delivery Method Positive well nourished and well developed Constitutional Narrative: Patient looks a little uncomfortable but is not toxic. General Appearance ED: well developed HEENT Reports moist mucous membranes Eyes General Eye ED: Negative for scleral icterus Neck supple Chest Wall inspection of chest normal Resp normal respiratory effort Cardio regular rate GI normal to inspection, nondistended, normoactive bowel sounds and non-tender GI Narrative: Abdomen is soft and nontender. No mass. No rebound or guarding. He does have some left CVA tenderness though. Back/Spine no CVA tenderness General Back: CVA tenderness Extremity Extremity Narrative: Trace peripheral edema which is evidently chronic Neuro oriented x3 Skin no rashes or lesions noted Skin Narrative: No vesicles. MDM MDM MDM Narrative Medical decision making narrative: My independent interpretation of the patient's single view KUB done for left flank pain and known kidney stone shows nonspecific bowel gas pattern. I do not see any definitive indication of stone along the ureteral tract. Radiology reading does show calcific foci in the reason the left kidney. Patient's white count is normal. Hemoglobin and platelets are normal. Electrolytes show mild bump in his creatinine its up from about 1.2-1.48. Glucose is minimally up at 131. Urine has red cells but no sign of infection. I have given this patient some IV fluids for his mild renal insufficiency and nausea. I gave him Zofran which did help his nausea. However, I will give him morphine and 2 doses of hydromorphone. I really cannot get his pain well under control. I again talked with him. He is not having diarrhea. The pain is consistent with his kidney stone. Review of records from another hospital: I was able to get [facility] to send a copy of their recent CT scan of the abdomen from November 08 of this year. It did show a left obstructing stone in the mid ureteral area with proximal hydroureter and hydronephrosis. This was about 5 mm. No sign of diverticulitis. I think this patient is having intractable pain from his kidney stone. I do not think he needs a repeat CT scan. I discussed the case with his urologist and he will be brought in the hospital for further management. Lab Data Attestation: I reviewed the patient's lab results. Labs: Laboratory Results - last 24 hr 11/11/22 11/11/22 11/11/22 18:05 18:05 18:25 WBC 8.3 RBC 4.83 Hgb 14.5 Hct 43.3 MCV 89.6 MCH 30.0 MCHC 33.5 RDW Std Deviation 46.4 H RDW Coeff of Benjamin 14.0 Plt Count 215 MPV 10.0 Immature Gran % (Auto) 0.400 Neut % (Auto) 67.0 Lymph % (Auto) 16.1 L [place] % (Auto) 14.3 H Eos % (Auto) 2.0 Baso % (Auto) 0.2 Absolute Neuts (auto) 5.6 Absolute Lymphs (auto) 1.34 Nucleated RBC % 0 Sodium 135 L Potassium 3.7 Chloride 102 Carbon Dioxide 25.0 Anion Gap 8 BUN 22 H Creatinine 1.48 H Estim Creat Clear Calc 41.14 Est GFR (MDRD) Af Amer 59 L Est GFR (MDRD) Non-Af 49 L BUN/Creatinine Ratio 14.9 Glucose 131 H Calcium 9.4 Urine Color Yellow Urine Clarity Clear Urine pH 6.0 Ur Specific [place] 1.020 Urine Protein 30 H Urine Glucose (UA) Normal Urine Ketones 5 H Urine Occult Blood 150 H Urine Nitrite Negative Urine Bilirubin Negative Urine Urobilinogen Normal Ur Leukocyte Esterase 25 H Urine RBC 10-25 SEEN Urine WBC 0 SEEN Ur Squamous Epith Cells 0 SEEN Urine Bacteria 0 SEEN Urine Mucus 0 SEEN Radiography Diagnostic Testing: Clinical Impression(s) from Imaging Studies KUB X-Ray 11/11/22 22:13 IMPRESSION: Calcific foci in the region of the left kidney, may represent nonobstructive calculi. Non-obstructive bowel gas pattern. Electronically Signed: Zafar Olsen MD at 22:37 EST , Discharge Plan Dx/Rx/DC Orders Clinical Impression: Calculus of distal left ureter, Intractable pain, Failure of outpatient treatment Disposition Disposition: Acute Care Hospital [facility] [place] [facility]
[2022-11-11] MEDS: Ondansetron 4 MG/2 ML Vial IV (18:26)
[2022-11-11] MEDS: Morphine 4 MG/ML Syringe IV (18:27)
[2022-11-11 18:31] LABS: Absolute Lymphocyte Count 1.34 X10^3/uL (0.83-4.51); Absolute Neutrophil Count 5.6 X10^3/uL (2.0-7.7); Basophil# 0.02 X10^3/uL; Basophil% 0.2 % (0-1); Eosinophil# 0.17 X10^3/uL; Hematocrit 43.3 % (40-54); Hemoglobin 14.5 g/dL (13.0-16.5); Lymphocyte # 1.34 X10^3/ul (0.83-4.51); Lymphocyte % 16.1 % (19-41); Mean Corp Hgb Conc 33.5 g/dL (32-36); Mean Corpuscular Volume 89.6 fL (80-94); Monocyte# 1.19 X10^3/uL; Monocyte% 14.3 % (0-10); NRBC Flagged by Analyzer 0 % (0-5); Neutrophil # 5.55 X10^3/uL (2.7-7.7); Platelet Count 215 K/mm3 (150-450); RBC Distribution Width SD 46.4 fl (35.1-43.9); Red Blood Count 4.83 M/mm3 (4.6-6.2); White Blood Count 8.3 K/mm3 (4.4-11.0)
[2022-11-11 18:33] LABS: Bacteria 0 SEEN /hpf (None Seen); Mucous, Urine 0 SEEN /hpf (<or=2+); Squamous Epithelial Cells - UA 0 SEEN /hpf (0-5); White Blood Cells 0 SEEN /hpf (0-5)
[2022-11-11 18:38] LABS: Anion Gap 8 (5-15); BUN 22 mg/dL (7-18); BUN/Creat Ratio 14.9 RATIO (10-20); Calcium,Total 9.4 mg/dL (8.5-10.1); Chloride 102 mmol/L (98-107); Creatinine, Serum 1.48 mg/dL (0.70-1.30); EST Glomerular Filtration Rate 49 mL/min (>60); Est Glom Filt Rate - Afr Amer 59 mL/min (>60); Estimated Creatinine Clearance 41.14 ml/min; Glucose 131 mg/dL (74-106); Potassium 3.7 mmol/L (3.5-5.1); Sodium Level 135 mmol/L (136-145)
[2022-11-11 18:57] LABS: Color, Urine Yellow (Yellow); Glucose, Dipstick Normal (Normal); Ketone-Dipstick 5 mg/dl (Negative); Leukocyte Esterase-Dipstick 25 /ul (Negative); Nitrite-Dipstick Negative (Negative); Occult Blood-Urine 150 /ul (Negative); Protein-Dipstick 30 mg/dl (Negative); Urine Bilirubin Dipstick Negative (Negative); Urine Clarity Clear (Clear); Urine Urobilinogen Normal (Normal)
[2022-11-11 19:19] LABS: Red Blood Cells-Urine 10-25 SEEN /hpf (0-5)
[2022-11-11 19:36] VITALS: BP 154/92
[2022-11-11] MEDS: HYDROmorphone 0.5 MG/0.5 ML SYRINGE IV ×2 (20:04→21:38)
[2022-11-11 21:36] VITALS: BP 146/94
--- NOTE | 2022-11-11 22:13 | RAD_ITS ---
INDICATION: Left kidney stone follow-up EXAMINATION/TECHNIQUE: X-RAY - XR Abdomen 1 View COMPARISON: CT abdomen pelvis 08/07/2022 FINDINGS: BOWEL GAS PATTERN: Gas distended colon. Nonobstructive bowel gas pattern. Mild increased stool in the proximal colon. FREE AIR: Not assessed on a single supine view. Calcific foci in the region of the left kidney. Redemonstration of surgical changes in the right upper quadrant consistent with prior cholecystectomy and surgical changes in the pelvis, similar compared to the prior. Phleboliths in the pelvis, similar compared to the prior. LOWER CHEST: No acute pathology. BONES AND SOFT TISSUES: Chronic posterior left 11th rib fracture. Degenerative changes of the visualized spine, similar compared to the prior. RAD/Abdomen Single View (Portable) IMPRESSION: Calcific foci in the region of the left kidney, may represent nonobstructive calculi. Non-obstructive bowel gas pattern. Electronically Signed: Zafar Olsen MD at 22:37 EST ,
--- NOTE | 2022-11-11 22:49 | ED.RN ---
VERBAL ORDERS GIVEN VIA TELEPHONE BY DR. VALDOVINOS AT THIS TIME.
[2022-11-11 23:03] VITALS: BP 150/90; PULSE 95; RESP 18; TEMP 36.6; O2SAT 99
[2022-11-12] VITALS (7 sets, daily range): BP systolic 122–173; BP diastolic 70–98; PULSE 79–101; RESP 14–18; TEMP 36.7–37.2; O2SAT 93–95; BMI 29.3
[2022-11-12] MEDS: HYDROmorphone 0.5 MG/0.5 ML SYRINGE IV (00:21)
[2022-11-12] MEDS: 0.9% Saline Lock 10 ML Syringe IV ×2 (02:32→04:55)
[2022-11-12] MEDS: Morphine 2 MG/ML Syringe 1 MG IV (02:32)
[2022-11-12] MEDS: Ketorolac 15 MG/ML Vial IV ×2 (04:55→17:08)
--- NOTE | 2022-11-12 07:27 | HP.PCM_ITS ---
HPI - General General Date of Admission: 11/11/22 Date of Service: 11/11/22 Chief Complaint: Right flank pain HPI Narrative MYNOR CHIN, is a 77 M who presents with continued severe right flank pain from a stone in the distal right ureter he was admitted to the hospital for pain control we had him on the schedule for next week but because his pain was out of control he was admitted and we will put him on the schedule for tomorrow for cystoscopy stent placement and right extracorporeal shockwave lithotripsy. N.p.o. at midnight we will get consent. Hold all blood thinners. [facility] Medical History Cardiology follow-up encounter Gout History of diverticulitis History of echocardiogram History of kidney stones History of stress test Hypertension Leg cramps Non-smoker Wears glasses Home Medications allopurinol 100 mg tablet 100 mg PO DAILYCM gout 07/07/15 [History Last Taken 11/11/22] vit A 300 mcg-C 200 mg-E 27 mg-lutein 2 mg and minerals tablet (Ocuvite with Lutein) 1 ea PO DAILY supplement 07/07/15 [History Last Taken 11/11/22] tamsulosin 0.4 mg capsule 0.4 mg PO QHS urine flow 07/15/16 [History Last Taken 11/11/22] cholecalciferol (vitamin D3) 125 mcg (5,000 unit) capsule 5,000 unit PO DAILY supplement 06/05/19 [History Last Taken 11/11/22] atorvastatin 40 mg tablet 20 mg PO DAILY cholesterol 12/02/20 [History Last Taken 11/10/22] metoprolol tartrate 25 mg tablet 25 mg PO BID HTN 12/02/20 [History Last Taken 12/16/20 03:30 25 MG] aspirin 81 mg chewable tablet 81 mg PO BID ##60 12/17/20 [Rx Last Taken 11/08/22] acetaminophen 500 mg tablet 650 mg PO Q8H PRN Pain 1-10 Or Fever 01/15/21 [History Last Taken 11/11/22] oxycodone-acetaminophen 5 mg-325 mg tablet (Percocet) 1 tab PO Q6H PRN pain 3 days #12 tabs 08/07/22 [Rx Last Taken 11/11/22] ezetimibe 10 mg tablet 5 mg PO DAILY 08/11/22 [History Last Taken 11/11/22] finasteride 5 mg tablet 5 mg PO DAILY 08/11/22 [History Last Taken 11/11/22] vitamin B complex 1 cap PO DAILY 08/11/22 [History Last Taken 11/11/22] oxycodone-acetaminophen 5 mg-325 mg tablet 1 tab PO Q6H PRN pain 7 days #14 tabs 08/12/22 [Rx Last Taken Unknown] magnesium 200 mg tablet 400 mg PO DAILY 11/12/22 [History Last Taken 11/11/22] Allergy/AdvReac Type Severity Reaction Status Date / Time shellfish derived Allergy Pain in Verified 11/12/22 01:41 joints ORGAN MEATS AdvReac Pain in Uncoded 11/12/22 01:41 joints Surgical History History of back surgery History of bilateral knee replacement History of colon surgery Hx of CABG Hx of cholecystectomy Hx of colonoscopy Hx of tonsillectomy Hx of wisdom tooth extraction Social History Smoking Status: Never smoker ROS ROS Narrative Severe right flank pain Constitutional Constitutional: Denies chills, fever(s) or malaise Eyes Eyes: Denies blurry vision or change in vision ENT HEENT: Reports none Cardiovascular Cardiovascular: Denies chest pain or palpitations Respiratory/Chest Respiratory/Chest: Denies cough or shortness of breath with exertion Gastrointestinal Gastrointestinal: Denies abdominal pain, constipation or diarrhea Musculoskeletal Musculoskeletal: Denies back pain, joint stiffness or joint swelling Integumentary Integumentary: Denies dry skin, jaundice, lesions or rash Neurologic Neurologic: Denies confusion, syncope or weakness Psychiatric Psychiatric: Reports none; Denies anxiety or depression Endocrine Endocrinology: Denies excessive sweating, fatigue or flushing Hematologic/Lymphatic Hematologic/Lymphatic: Denies anemia, easy bleeding or easy bruising Vital Signs Vital Signs Vital Signs: 11/11/22 17:37 11/11/22 17:49 11/11/22 19:36 Temperature 97.2 F L Temperature Source Temporal Pulse Rate 103 H Respiratory Rate 18 Respiratory Effort Normal Non-Labored Respiratory Depth Respiratory Pattern Blood Pressure 168/102 H 154/92 H Blood Pressure Mean 124 112 Blood Pressure Source Blood Pressure Position Blood Pressure Location Pulse Ox 94 Oxygen Delivery Method Room Air 11/11/22 21:36 11/11/22 23:03 11/11/22 23:03 Temperature 97.8 F Temperature Source Temporal Pulse Rate 95 Respiratory Rate 18 Respiratory Effort Respiratory Depth Respiratory Pattern Blood Pressure 146/94 H 150/90 H Blood Pressure Mean 111 110 Blood Pressure Source Blood Pressure Position Blood Pressure Location Pulse Ox 99 99 Oxygen Delivery Method Room Air Room Air 11/12/22 00:22 11/12/22 01:48 11/12/22 01:33 Temperature 98.5 F Temperature Source Oral Pulse Rate 94 101 H Respiratory Rate 14 18 Respiratory Effort Normal Non-Labored Respiratory Depth Normal Respiratory Pattern Normal Blood Pressure 135/79 H 173/98 H Blood Pressure Mean 97 123 Blood Pressure Source Monitor Blood Pressure Position Semi-Fowlers Blood Pressure Location Left Arm Pulse Ox 93 95 Oxygen Delivery Method Room Air Room Air Weight Weight: 90.2 kg Body Mass Index (BMI) 29.3 Physical Exam Const alert and oriented x3 General Appearance: cooperative HEENT normocephalic, head/scalp atraumatic, EAC's normal and TM's normal bilaterally Eyes PERRL and EOMs intact bilaterally Pupil: sluggish Neck no lymphadenopathy, supple and no JVD General: trachea midline Lymph Lymphatic: no lymphadenopathy noted, lymphedema and lymphadenopathy Resp normal respiratory effort, normal air movement and clear to auscultation bilaterally Cardio regular rate, regular rhythm and peripheral pulses 2+ throughout GI soft to palpation, non-tender and non-distended Extremity normal capillary refill and no clubbing, cyanosis or edema General Extremity: no tenderness to palpation of joints or extremities Skin no rashes or lesions noted General Skin Exam: turgor normal Lesions: no lesions Rashes: no rashes Neuro CN's II-XII intact bilaterally Speech: speech normal Motor Exam: strength 5/5 throughout; Negative for general weakness Psych thought process normal, cooperative and affect normal Appearance: appropriate Results Medical Records Data Attestation: I reviewed the patient's medical records Lab / Micro Data Result Diagrams: 11/11/22 18:05 11/11/22 18:05 Labs: Laboratory Results - last 24 hr 11/11/22 18:05: WBC 8.3, RBC 4.83, Hgb 14.5, Hct 43.3, MCV 89.6, MCH 30.0, MCHC 33.5, RDW Std Deviation 46.4 H, RDW Coeff of Benjamin 14.0, Plt Count 215, MPV 10.0, Immature Gran % (Auto) 0.400, Neut % (Auto) 67.0, Lymph % (Auto) 16.1 L, [place] % (Auto) 14.3 H, Eos % (Auto) 2.0, Baso % (Auto) 0.2, Absolute Neuts (auto) 5.6, Absolute Lymphs (auto) 1.34, Nucleated RBC % 0 11/11/22 18:05: Sodium 135 L, Potassium 3.7, Chloride 102, Carbon Dioxide 25.0, Anion Gap 8, BUN 22 H, Creatinine 1.48 H, Estim Creat Clear Calc 41.14, Est GFR (MDRD) Af Amer 59 L, Est GFR (MDRD) Non-Af 49 L, BUN/Creatinine Ratio 14.9, Glucose 131 H, Calcium 9.4 11/11/22 18:25: Urine Color Yellow, Urine Clarity Clear, Urine pH 6.0, Ur Specific [place] 1.020, Urine Protein 30 H, Urine Glucose (UA) Normal, Urine Ketones 5 H, Urine Occult Blood 150 H, Urine Nitrite Negative, Urine Bilirubin Negative, Urine Urobilinogen Normal, Ur Leukocyte Esterase 25 H, Urine RBC 10-25 SEEN, Urine WBC 0 SEEN, Ur Squamous Epith Cells 0 SEEN, Urine Bacteria 0 SEEN, Urine Mucus 0 SEEN Radiology Impression KUB X-Ray 11/11/22 22:13 IMPRESSION: Calcific foci in the region of the left kidney, may represent nonobstructive calculi. Non-obstructive bowel gas pattern. Electronically Signed: Zafar Olsen MD at 22:37 EST , Assessment & Plan Assessment/Plan (1) Intractable pain: PLAN: Admit for pain control (2) Failure of outpatient treatment: PLAN: Plan for surgery while in the hospital (3) Calculus of distal right ureter: PLAN: Placement is scheduled for tomorrow for stent placement and right ESWL
--- NOTE | 2022-11-12 07:30 | RAD_ITS ---
INDICATION: Possible Kidney Stone EXAMINATION/TECHNIQUE: X-RAY - XR Abdomen [address] dated August 07, 2022: FINDINGS: BOWEL GAS PATTERN: Non-obstructive. No bowel or stomach distention. FREE AIR: Not assessed on a single supine view. ORGANOMEGALY: Not seen. CALCIFICATIONS: There is bowel gas overlying the expected region of the kidneys and obscuring anatomic detail. There are phleboliths. LOWER CHEST: No acute pathology. BONES AND SOFT TISSUES: There are surgical clips within the right upper quadrant consistent with prior cholecystectomy. There are surgical clips within the pelvis. There are degenerative changes of the lumbar spine. RAD/Abdomen Single View IMPRESSION: Nonspecific bowel gas pattern. Bowel gas overlying the expected region of the kidneys and obscuring anatomic detail. Electronically Signed: Nikki Rios MD at 8:17 EST ,
[2022-11-12] MEDS: Finasteride 5 MG Tablet PO (08:42)
[2022-11-12] MEDS: Magnesium Chloride 64 MG Delay Rel.Tablet 128 MG PO (08:42)
[2022-11-12] MEDS: Multivitamin (Healthy Eyes) Capsule 1 CAP PO (08:42)
[2022-11-12] MEDS: Allopurinol 100 MG Tablet PO (08:42)
[2022-11-12] MEDS: Metoprolol Tartrate 25 MG Tablet PO ×2 (08:42→21:25)
[2022-11-12] MEDS: Atorvastatin Calcium 20 MG Tablet PO (12:23)
[2022-11-12] MEDS: Tamsulosin HCl 0.4 MG Capsule PO (21:25)
[2022-11-13] VITALS (10 sets, daily range): BP systolic 139–170; BP diastolic 83–93; PULSE 63–86; RESP 14–18; TEMP 36.5–37.2; O2SAT 93–98; BMI 29.3
--- NOTE | 2022-11-13 05:30 | EKG12_ITS ---
Test Reason : AM EKG Blood Pressure : / mmHG Vent. Rate : 076 BPM Atrial Rate : 076 BPM P-R Int : 148 ms QRS Dur : 128 ms QT Int : 410 ms P-R-T Axes : 029 -59 039 degrees QTc Int : 461 ms Normal sinus rhythm Left axis deviation Non-specific intra-ventricular conduction block Abnormal ECG Confirmed by RENE FELICIANO, EDB ([id number]), supervising editor trailer DANIEL RIVER ([id number]) on 11/18/2022 10:15:32 AM Referred By: ARUNA Confirmed By:DBE LÓPEZ MD
--- NOTE | 2022-11-13 10:15 | CASEMGMT ---
ASIYA HERNANDEZ Assessment: Face to Face with pt for initial transition planning/care coordination assessment. RN DAVID introduced self and role at [facility] [place], pt voices understanding and consents to assessment. Pt is A/O x4 and answers all questions appropriately at this time. Pt lying in bed in no distress. Care providers, pharmacy, and demographics verified/updated. Admitting Dx: left kidney stone, intractable pain PCP:Yumi Specialists:Kym, uro; cardio at [facility]; [place], ortho Preferred Pharmacy: [facility] Insurance: [place] benefit Prescription Benefit: yes LNOK: Lolita Forrest, Living Arrangements: Pt lives with in a single story home with 1-2 steps to enter with a grab bar. Pt reports he is I in ADL's and denies concerns at home. Transportation: Pt drives self and denies concerns with transportation. DME/HHC/SNF: Pt has a cane and FWW at home but does not use. Pt has no hx of HHC or SNF stays. Pt states no concerns with going home at time of dc. Pt states no further concerns/needs. CM to follow. Advised pt to ask CM if any further question/concerns/needs arise, voices understanding. Pt Goal: Home Plan: Home
[2022-11-13] MEDS: Finasteride 5 MG Tablet PO (10:41)
[2022-11-13] MEDS: Allopurinol 100 MG Tablet PO (10:41)
[2022-11-13] MEDS: Atorvastatin Calcium 20 MG Tablet PO (10:41)
[2022-11-13] MEDS: Magnesium Chloride 64 MG Delay Rel.Tablet 128 MG PO (10:41)
[2022-11-13] MEDS: Metoprolol Tartrate 25 MG Tablet PO (10:41)
[2022-11-13] MEDS: Multivitamin (Healthy Eyes) Capsule 1 CAP PO (10:44)
[2022-11-13] MEDS: Lactated Ringers 1,000 ML 15 ML IV ×2 (13:10→16:06)
--- NOTE | 2022-11-13 14:25 | DCINST_ITS ---
Discharge Instructions Diet Discharge Diet: No restrictions, Light diet - advance as tolerated and Soft diet Activity Discharge Activity: Return to Normal Activity Follow Up Care Please Follow Up With: Nikolay Mejía MD When: call for appt next week with xray and plan to remove stent Test Results: Test results from this visit will be discussed in further detail at your follow- up appointment, if applicable. Discharge Plan Admission Admit Date/Time: 11/12/22 07:30 Primary Reason for Your Visit: treat kidney stone Attending Provider: Nikolay Mejía Primary Care Provider: Thor Eason Discharge Orders/Prescriptions Prescriptions: Continued allopurinol 100 MG tablet 100 mg PO DAILYCM Label Comments: Gout Ocuvite with Lutein 1 EACH tablet 1 ea PO DAILY Label Comments: Vitamin tamsulosin 0.4 MG capsule 0.4 mg PO QHS Label Comments: Urination cholecalciferol (vitamin D3) 5,000 UNIT capsule 5,000 unit PO DAILY atorvastatin 40 MG tablet 20 mg PO DAILY metoprolol tartrate 25 MG tablet 25 mg PO BID aspirin 81 MG tablet,chewable 81 mg PO BID Qty: 60 0RF acetaminophen 500 MG tablet 650 mg PO Q8H PRN (Reason: Pain 1-10 Or Fever) oxycodone-acetaminophen [Percocet] 5-325 mg tablet 1 tab PO Q6H PRN (Reason: pain) 3 Days Qty: 12 0RF finasteride 5 mg Tablet 5 mg PO DAILY vitamin B complex Capsule 1 cap PO DAILY ezetimibe 10 mg Tablet 5 mg PO DAILY oxycodone-acetaminophen 5-325 mg tablet 1 tab PO Q6H PRN (Reason: pain) 7 Days Qty: 14 0RF magnesium 200 mg Tablet 400 mg PO DAILY Referrals / Follow Up: Nikolay Mejía MD [Med Staff - Active Staff] - Thor Eason MD [Primary Care Provider] - Disposition Discharge Orders: Discharge Patient (Routine); Ordered 11/13/22 Ordered By: Dr. Nikolay Mejía
[2022-11-13] MEDS: Cefazolin 2 GM in 0.9% Normal Saline 100 ML IV (14:27)
--- NOTE | 2022-11-13 15:46 | OP.PCM_ITS ---
Report of Operation Date of Procedure: 11/13/22 Pre-Operative Diagnosis: Left ureteral calculi Post-Operative Diagnosis: Same Surgery/Procedure Performed:: Cystoscopy left stent placement left ESWL Description of Surgical Findings:: Patient presents to the hospital for treatment of a kidney stone with shockwave lithotripsy. In the preoperative area and x-ray was done to confirm the location of the stone. The x-ray was reviewed and the stone location was reviewed. In the preoperative setting I spoke with the patient regarding the treatment of the stone how the treatment would be conducted and the expectations after surgery. The patient understands there is a risk of bleeding and infection. Also discussed the very rare risk of hematoma or damage to the kidney. We also discussed the risk that the shockwave machine will fail to b reak the stone adequately and that the patient may need other surgical procedures. We also discussed the possibility that the patient may need a stent after the procedure. After reviewing the procedure with the patient, the patient is signed the consent form all the patient's questions were addressed and was taken back to the operating room for treatment of a kidney stone. Patient was taken back to the operating room, patient was identified by the nursing staff, we identified the side of the treatment and the patient side of treatment had been marked by my initials. The patient underwent general anesthetic and was placed supine on the lithotripter table. The urethra and genitals were prepped and draped in usual sterile fashion. Using a 21 Samoan rigid cystourethroscope the entire length of the urethra was normal then went into the bladder. Identified the trigone the left and right ureteral orifice. I then cannulated the left ureteral orifice and advanced a wire up into the kidney. I then backloaded a 5 Samoan open ended catheter over the wire and injected contrast to delineate the anatomy. After the retrograde was performed I then used fluoroscopic images and guidance to advanced a wire up into the kidney and over the 0.038 glidewire I advanced a 6 Samoan by 26 cm double pigtail stent. I then pulled the 0.038 Glidewire off and the stent coiled in the kidney bladder good position. The bladder was then drained. We confirmed the position of the stent by fluoroscopy. We then used fluoroscopy to identify the stone on the left side. We then positioned the patient under the lithotripter and we used triangulation technique to identify the location of the stone and then we made sure that the stone was engaged in the F2 focal point of F2 Donier lithoprior machine. Once the patient was positioned appropriately and the stone was identified and placed in the F2 focal point of the lithotripter machine we then proceeded with shockwave lithotripsy. In the beginning the shockwave was delivered at a rate of 90 shocks per minute, we monitor the EKG for any ectopy. The power was slowly increased to 5 kV and subsequently at the 7 kV. We then proceeded with the treatment we move the therapy had around during the treatment to make sure the stone stayed in the F2 focal point during the entire treatment and after 3000 shockwaves were delivered to the stone under fluoroscopic guidance the treatment was completed. The patient was given instructions to call the office to make an a follow-up appointment with an xray to evaluate the success of the treatment, pateint understands that its possible the stones may need another procedure.At this point the patient's anesthetic was reversed patient was extubated and taken back to the PACU in stable condition. Surgeon: Nikolay Mejía Type of Anesthesia: General Drains: stent Admit VTE Documentation VTE Present on Admission: No VTE Mechan Device Prophylaxis: SCD's VTE Pharm Prophylaxis ordered?: No
== END 2022-11-13 18:30 | disposition home or self-care (01) | DRG 660 ==
LOC: ED 22:47 → MS2 23:25
PROVIDERS: Admitting Provider Urology; Emergency Provider Emergency Medicine; PCP Family Medicine; Visit Provider Urology
PROC: 0T778DZ Dilation of Left Ureter with Intraluminal Device, Via Natural or Artificial Opening Endoscopic (ICD-10-PCS; CPT 50590; principal; 2022-11-13 13:45)
DX: N13.2 Hydronephrosis with renal and ureteral calculous obstruction (principal); N13.4 Hydroureter; I10 Essential (primary) hypertension; M10.9 Gout, unspecified; Z79.82 Long term (current) use of aspirin; Z79.899 Other long term (current) drug therapy; Z87.442 Personal history of urinary calculi; Z96.653 Presence of artificial knee joint, bilateral; Z95.1 Presence of aortocoronary bypass graft
CPT/HCPCS: 74018; 80048; 81001; 85025; 93005; 99284; J7030; J7120; A4216; C1769; C2617; J2405

== ENCOUNTER → 2023-02-16 | Outpatient (CLI) | payer OTHER, SELFPAY | END | disposition home or self-care (01) | DX: G47.33 Obstructive sleep apnea (adult) (pediatric) (principal) | CPT/HCPCS: 95810 ==

== ENCOUNTER → 2023-07-26 | Outpatient (CLI) | payer MEDICARE, OTHER, SELFPAY ==
[2023-07-26 16:42] LABS: PSA,Total - Annual Screen 4.26 ng/mL (0.00-4.00)
== END | disposition home or self-care (01) ==
LOC: LAB 15:37
PROVIDERS: PCP Family Medicine; Referring Provider Urology; Visit Provider Urology
DX: Z12.5 Encounter for screening for malignant neoplasm of prostate (principal)
CPT/HCPCS: 36415; 84153; G0103

== ENCOUNTER 2024-04-25 01:45 | Emergency (ER) | payer OTHER, SELFPAY ==
--- NOTE | 2024-04-25 14:31 | CT_ITS ---
EXAM: CT HEAD WITHOUT INTRAVENOUS CONTRAST CLINICAL INDICATION: DEGROOT TECHNIQUE: Multiple axial images were obtained of the head without intravenous contrast. This CT exam was performed using one or more of the following dose reduction techniques: automated exposure control, adjustment of the mA and/or kV according to patient size, and/or use of iterative reconstruction technique. RADIATION DOSE: CTDIvol = 44.99 mGy, DLP = 829.85 mGy-cm COMPARISON: No relevant prior studies available. FINDINGS: BRAIN AND EXTRA-AXIAL SPACES: Mild generalized atrophy. Mild low density bilaterally in the deep white matter. No intra- or extra-axial hemorrhage. No evidence of acute infarct. No intracranial mass or mass effect. There is preservation of the oswald/white matter interface. Posterior fossa structures are unremarkable. No hydrocephalus. Basal cisterns are patent. BONES/JOINTS: Unremarkable. No discrete lytic or blastic abnormalities. SINUSES: Unremarkable as visualized. Clear. MASTOID AIR CELLS: Unremarkable. Clear. ORBITS: Visualized globes, extraocular muscles, optic nerves and retrobulbar fat appear unremarkable. CT/Brain/Head without Contrast IMPRESSION: Mild generalized atrophy. Mild low density bilaterally in the deep white matter. This likely represents chronic small vessel ischemic changes in the deep white matter. Electronically Signed: Castillo Villanueva MD at 2:43 EDT ,
--- NOTE | 2024-04-25 22:40 | EDS_ITS ---
HPI History of Present Illness Detail of Chief Complaint: Patient seen during computer downtime. Informant: patient Onset/Context/Timing Onset: Days Context: Gradual Onset Timing: Intermittent Current Severity: Mild Narrative Narrative: 78-year-old male history of CAD and hypertension. Prior CABG. States he fell about 2 weeks ago and injured his left lower leg treated as a skin tear. No repair. About a week ago he was seen in urgent care. They thought it was getting infected started on antibiotics feels improved. Patient states that he began having head pain he really will call in a headache since morning outside of his head radiates down to his forehead or the right side of his face Wednesday night. He states the Percocet at home with some relief. He typically does not get headaches. Denies hitting his head or having any LOC. Denies any arm or leg weakness. Prior similar symptoms: No Recent Illness/Hospitalization: No PFSH PFSH Medical History Wears glasses Gout History of diverticulitis Non-smoker Leg cramps History of echocardiogram History of stress test Hypertension Cardiology follow-up encounter History of kidney stones Home Medications ?Medication ?Instructions ?Recorded ?Last Taken ?Type allopurinol 100 mg tablet 100 mg PO DAILYCM gout 07/07/15 11/11/22 History vit A 300 mcg-C 200 mg-E 27 1 ea PO DAILY supplement 07/07/15 11/11/22 History mg-lutein 2 mg and minerals tablet (Ocuvite with Lutein) tamsulosin 0.4 mg capsule 0.4 mg PO QHS urine flow 07/15/16 11/11/22 History cholecalciferol (vitamin D3) 125 5,000 unit PO DAILY supplement 06/05/19 11/11/22 History mcg (5,000 unit) capsule atorvastatin 40 mg tablet 20 mg PO DAILY cholesterol 12/02/20 11/10/22 History metoprolol tartrate 25 mg tablet 25 mg PO BID HTN 12/02/20 12/16/20 03:30 History 25 MG aspirin 81 mg chewable tablet 81 mg PO BID ##60 12/17/20 11/08/22 Rx acetaminophen 500 mg tablet 650 mg PO Q8H PRN Pain 1-10 Or 01/15/21 11/11/22 History Fever oxycodone-acetaminophen 5 mg-325 1 tab PO Q6H PRN pain 3 days #12 08/07/22 11/11/22 Rx mg tablet (Percocet) tabs ezetimibe 10 mg tablet 5 mg PO DAILY 08/11/22 11/11/22 History finasteride 5 mg tablet 5 mg PO DAILY 08/11/22 11/11/22 History vitamin B complex 1 cap PO DAILY 08/11/22 11/11/22 History oxycodone-acetaminophen 5 mg-325 1 tab PO Q6H PRN pain 7 days #14 08/12/22 Unknown Rx mg tablet tabs magnesium 200 mg tablet 400 mg PO DAILY 11/12/22 11/11/22 History Allergy/AdvReac Type Severity Reaction Status Date / Time Food Allergies: Uncoded Allergy Pain in Verified 06/28/23 09:42 joints shellfish derived Allergy Pain in Verified 11/12/22 01:41 joints Surgical History History of colon surgery Hx of wisdom tooth extraction Hx of tonsillectomy Hx of cholecystectomy Hx of colonoscopy History of back surgery Hx of CABG History of bilateral knee replacement Social History Smoking Status: Never smoker ROS ROS ED ROS Narrative Denies recent illness. Review of Systems ROS Unobtainable: Denies due to encephalopathy Constitutional Constitutional ED: Denies chills or fever(s) Eyes Eyes: Denies blurry vision ENT ENT ED: Denies ear pain Cardiovascular Cardiovascular: Denies chest pain Respiratory/Chest Respiratory/Chest: Denies cough Gastrointestinal Gastrointestinal: Denies abdominal pain Genitourinary Genitourinary ED: Denies dysuria Musculoskeletal Musculoskeletal: Denies arthralgias Integumentary Denies abscess Neurologic Neurologic: Denies headache(s), paresthesias or weakness Psychiatric Psychiatric: Denies anxiety Endocrine Endocrinology: Denies cold intolerance Hematologic/Lymphatic Hematologic/Lymphatic: Reports none Allergic/Immunologic Allergic/Immunologic ED: Denies mouth swelling, tongue swelling or urticaria EXAM Physical Exam Narrative Exam Narrative: Well-appearing 78-year-old male. Vital signs stable afebrile. He is in no distress. Twice in the room. H EENT exam unremarkable atraumatic. He has intermittent pain to the top of his scalp at times radiates to his forehead the right side of his face is not reproducible. There is no lesions. There is no reproducible tenderness. Pain is intermittent. Neck nontender. Lungs are clear. Heart regular rhythm. Abdomen soft. Chest wall and ribs nontender. Moving all 4 extremities. Old skin tear laceration left lateral lower leg. Currently does not look infected. It is still healing and will probably take several weeks to still heal. Neurologically is awake and alert with no focal motor deficits. Const Positive well nourished and well developed; Negative for obese, cachectic, contractures or unkempt General Appearance ED: well developed and NAD; Negative for unkempt, cachectic, contractures, cyanotic, diaphoretic or pallor Nutritional Appearance: Negative for cachectic or obese HEENT Reports moist mucous membranes; Denies dry mucous membranes Negative for trauma or tenderness Mouth ED: No dry mucous membranes Mouth: No dry mucous membranes Eyes PERRL and EOMs intact bilaterally General Eye ED: Negative for pale conjunctiva or scleral icterus Neck no lymphadenopathy, supple and no JVD General: Negative for tenderness Lymph Lymphatic: Negative for other Chest Wall inspection of chest normal and palpation of chest normal Resp normal respiratory effort and clear to auscultation bilaterally Effort and Inspection: Negative for retractions Auscultation: Negative for rales, rhonchi, wheezes or diminished lung sounds Cardio regular rate, regular rhythm, S1 normal heart sound, S2 normal heart sound and no murmurs Palpation: Negative for palpable S3 or palpable S4 Rate: Negative for bradycardia or tachycardic Rhythm: Negative for abnormal rhythm GI normal to inspection, nondistended, normoactive bowel sounds, non-tender, non- distended and no masses Inspection: Negative for abdominal distention Auscultation: normoactive bowel sounds Palpation: soft; Negative for tender or guarding Back/Spine no CVA tenderness General Back: Negative for CVA tenderness Cervical Spine: Negative for cervical spine tenderness Thoracic Spine / Upper Back: Negative for thoracic spinal tenderness or paraspinal muscle tenderness Lumbar Spine / Lower Back: Negative for lumbar spinal tenderness Extremity normal to inspection Extremity Narrative: Except left lower leg 2-week old skin tear. Healing. No acute signs of infection. Neuro oriented x3 and CN's II-XII intact bilaterally Sensorium / Orientation: alert; Negative for orientation impaired, lethargic or stuporous Motor Exam: strength 5/5 throughout; Negative for general weakness or strength abnormal Psych mental status grossly normal Appearance: Negative for unkempt Attitude: No agitated Mood & Affect: Negative for depressed, anxious or tearful Skin no rashes or lesions noted and no wounds General Skin Exam: Negative for jaundice or pallor Lesions: No lesion noted Rashes: No rashes noted Wounds: wounds noted MDM MDM MDM Narrative Medical decision making narrative: 78-year-old male with pain on his scalp that sounds neuropathic. This could be from a neuralgia or trigeminal neuralgia. It is not reproducible. Really does not sound like a headache. His neurologic exam and exam otherwise is unremarkable other than the skin tear on his leg. Obtained a CT of his brain which showed chronic changes no acute process. Patient was given Percocet for pain. Repeat exam at 3 AM he was doing well. Exam is unchanged. Neurologic exam remains normal. He was discharged home. He was written for limited, pain medication and prednisone. Radiography Diagnostic Testing: Clinical Impression(s) from Imaging Studies Brain CT 04/25/24 14:31 IMPRESSION: Mild generalized atrophy. Mild low density bilaterally in the deep white matter. This likely represents chronic small vessel ischemic changes in the deep white matter. Electronically Signed: Castillo Villanueva MD at 2:43 EDT , Discharge Plan Triage ED Provider: Elvis Samayoa Dx/Rx/DC Orders Clinical Impression: Neuralgia involving scalp, History of fall, History of hypertension Prescriptions: No Action allopurinol 100 MG tablet 100 mg PO DAILYCM Patient Comments: Gout Ocuvite with Lutein 1 EACH tablet 1 ea PO DAILY Patient Comments: Vitamin tamsulosin 0.4 MG capsule 0.4 mg PO QHS Patient Comments: Urination cholecalciferol (vitamin D3) 5,000 UNIT capsule 5,000 unit PO DAILY atorvastatin 40 MG tablet 20 mg PO DAILY metoprolol tartrate 25 MG tablet 25 mg PO BID aspirin 81 MG tablet,chewable 81 mg PO BID Qty: 60 0RF acetaminophen 500 MG tablet 650 mg PO Q8H PRN (Reason: Pain 1-10 Or Fever) oxycodone-acetaminophen [Percocet] 5-325 mg tablet 1 tab PO Q6H PRN (Reason: pain) 3 Days Qty: 12 0RF finasteride 5 mg Tablet 5 mg PO DAILY vitamin B complex Capsule 1 cap PO DAILY ezetimibe 10 mg Tablet 5 mg PO DAILY oxycodone-acetaminophen 5-325 mg tablet 1 tab PO Q6H PRN (Reason: pain) 7 Days Qty: 14 0RF magnesium 200 mg Tablet 400 mg PO DAILY Primary Care Provider: Igor Miramontes Print Language: Bengali Disposition Disposition: Home, Self Care Discharge Date/Time: 04/25/24 04:09
== END 2024-04-25 04:09 | disposition home or self-care (01) ==
LOC: ED 10:26
PROVIDERS: Emergency Provider Emergency Medicine; PCP Family Medicine; Visit Provider Emergency Medicine
DX: M79.2 Neuralgia and neuritis, unspecified (principal); I25.10 Atherosclerotic heart disease of native coronary artery without angina pectoris; I10 Essential (primary) hypertension; Z95.1 Presence of aortocoronary bypass graft; Z91.81 History of falling
CPT/HCPCS: 70450; 99283; A4216

== ENCOUNTER 2024-04-27 08:32 | Outpatient (RCR) | payer MEDICARE, SELFPAY ==
[2024-04-27 08:50] VITALS: BP 146/73; PULSE 65; RESP 18; TEMP 36.2
--- NOTE | 2024-04-27 09:14 | PCM.WC.HP ---
History of Present Illness Date of Service: 04/27/24 Chief Complaint: Left lower extremity ulceration History of Wound: Patient is a 78-year-old male with PMHx of CABG. He states that in middle of April 2024 he was in a darden in doing some things around the yard and she had when he backed up into the wood splitter and bumped his left lower extremity. States that he did end up having a scab that did form over this wound and he continued applying Bactroban ointment however the wound did continue to breakdown and split open. He did not seek treatment at this time until 2 weeks later when he did suffer a fall and did go to the ED on 04/25/2024 at [facility]. He was instructed to continue to follow-up with his PCP and was placed on Keflex and did complete oral antibiotic treatment however the wound continued to fail to progress in healing. He was then referred to the wound care center for continued aid in his ulcer healing. He states that he does continue to apply the Bactroban ointment and dress it nightly. States that he does not put dressings on it during the daytime and does leave it open to air. Denies N/V/F/chills. Denies further complaints. [facility] Medical History Wears glasses Gout History of diverticulitis Non-smoker Leg cramps History of echocardiogram History of stress test Hypertension Cardiology follow-up encounter History of kidney stones Home Medications ?Medication ?Instructions ?Recorded ?Last Taken ?Type allopurinol 100 mg tablet 100 mg PO DAILYCM gout 07/07/15 11/11/22 History vit A 300 mcg-C 200 mg-E 27 1 ea PO DAILY supplement 07/07/15 11/11/22 History mg-lutein 2 mg and minerals tablet (Ocuvite with Lutein) tamsulosin 0.4 mg capsule 0.4 mg PO QHS urine flow 07/15/16 11/11/22 History cholecalciferol (vitamin D3) 125 5,000 unit PO DAILY supplement 06/05/19 11/11/22 History mcg (5,000 unit) capsule atorvastatin 40 mg tablet 20 mg PO DAILY cholesterol 12/02/20 11/10/22 History metoprolol tartrate 25 mg tablet 25 mg PO BID HTN 12/02/20 12/16/20 03:30 History 25 MG aspirin 81 mg chewable tablet 81 mg PO BID ##60 12/17/20 11/08/22 Rx acetaminophen 500 mg tablet 650 mg PO Q8H PRN Pain 1-10 Or 01/15/21 11/11/22 History Fever oxycodone-acetaminophen 5 mg-325 1 tab PO Q6H PRN pain 3 days #12 08/07/22 11/11/22 Rx mg tablet (Percocet) tabs ezetimibe 10 mg tablet 5 mg PO DAILY 08/11/22 11/11/22 History finasteride 5 mg tablet 5 mg PO DAILY 08/11/22 11/11/22 History vitamin B complex 1 cap PO DAILY 08/11/22 11/11/22 History oxycodone-acetaminophen 5 mg-325 1 tab PO Q6H PRN pain 7 days #14 08/12/22 Unknown Rx mg tablet tabs magnesium 200 mg tablet 400 mg PO DAILY 11/12/22 11/11/22 History atorvastatin 80 mg tablet 80 mg PO DAILY 04/27/24 Unknown History enalapril maleate 2.5 mg tablet 2.5 mg PO DAILY 04/27/24 Unknown History Allergy/AdvReac Type Severity Reaction Status Date / Time Food Allergies: Uncoded Allergy Pain in Verified 06/28/23 09:42 joints shellfish derived Allergy Pain in Verified 11/12/22 01:41 joints Surgical History History of colon surgery Hx of wisdom tooth extraction Hx of tonsillectomy Hx of cholecystectomy Hx of colonoscopy History of back surgery Hx of CABG History of bilateral knee replacement Social History Smoking Status: Never smoker ROS Constitutional Constitutional: Denies chills, fatigue, fever(s) or malaise Eyes Eyes: Denies blurry vision, change in vision or double vision ENT HEENT: Denies dysphagia, nasal congestion or sore throat Cardiovascular Cardiovascular: Denies chest pain, claudication or palpitations Respiratory/Chest Respiratory/Chest: Denies cough, shortness of breath at rest or wheezing Gastrointestinal Gastrointestinal: Denies abdominal pain, constipation, diarrhea, nausea or vomiting Genitourinary Genitourinary: Denies dysuria, hematuria or urinary urgency Musculoskeletal Musculoskeletal: Denies joint pain, joint stiffness or joint swelling Integumentary Integumentary: Denies lesions, pruritus or rash Neurologic Neurologic: Denies dizziness, numbness or seizures Psychiatric Psychiatric: Denies anxiety or depression Endocrine Endocrinology: Denies cold intolerance, heat intolerance or polydipsia Hematologic/Lymphatic Hematologic/Lymphatic: Denies easy bleeding or easy bruising Vital Signs Vital Signs Vital Signs: 04/27/24 08:50 Temperature 97.1 F L Temperature Source Temporal Pulse Rate 65 Respiratory Rate 18 Blood Pressure 146/73 H Blood Pressure Mean 97 Blood Pressure Source Monitor Blood Pressure Position Semi-Fowlers Blood Pressure Location Left Arm Oxygen Delivery Method Room Air Physical Exam Const alert, oriented x3 and no apparent distress General Appearance: cooperative HEENT normocephalic Eyes General Eye: normal appearance of both eyes Neck General: normal visual inspection Lymph Lymphatic: no lymphadenopathy noted and no lymphedema noted Resp normal respiratory effort Cardio regular rate and regular rhythm Extremity no joint enlargement, no calf tenderness and no pedal edema Extremity Narrative: Vascular: DP and PT pulses are weakly palpable to the left lower extremity and are palpable to the right lower extremity. CFT is less than 4 seconds to the right lower extremity but less than 5 seconds to the left lower extremity. Normal temperature gradient bilateral. Hair growth is absent to the digits bilateral. Neurologic: Light sensation intact. Gross sensation intact. Epicritic sensation intact. Motor sensation intact. No focal deficits are noted. Musculoskeletal: Muscle strength 5 of 5 age-appropriate. He does have decreased range of motion of the ankle joint in dorsiflexion with the knee extended without pain or crepitus bilateral. And decreased range of motion of the first metatarsophalangeal joint in dorsiflexion with foot loaded and unloaded without pain or crepitus. There is some tenderness to palpation about the ulcerative site on the right lower extremity. Dermatologic: Skin appears well-hydrated. There are some varicosities noted to the lower extremities. There is a superficial ulceration to the anterior medial right lower extremity with stable eschar covering. No signs of infection. There is an ulceration noted to the lateral aspect of the left lower extremity with mixed fibrogranular layer proximally and eschar covering distally. No signs of infection. Skin no rashes or lesions noted, skin turgor normal and no jaundice Neuro moves all extremities Debridement Note Debridement Note Wound debrided: Left lower extremity Laterality: Left Wound Grade/Stage: Tate stage I Type of Debridement: Excisional debridement Anesthesia Used: 5% Lidocaine Gel Depth: Down to and including healthy tissue and in the subcutaneous layer Percentage of wound debrided: 100 Instrument Used: 5mm curette Tissue Removed: Fibrous, devitalized subcutaneous, biofilm, slough Severity: Fat Layer Exposed Amount of bleeding with debridement: Mild Bleeding Controlled with: Compression and gauze Patient tolerated procedure: Patient tolerated procedure well Post-Debridement Measurements and Additional Note: Post-Debridement Measurements/Treatment - Nurse 1 - General Ulcer Assessment Start: 04/27/24 08:42 Freq: Status: Active Protocol: MARIANNE Activity Type Activity Date Activity User E-sign Co-sign Detail Recorded Client Recorded Date Recorded By Document 04/27/24 08:50 [facility] 04/27/24 09:07 04/27/24 08:50 - Today's Visit Information Type of service Initial Visit Arrival Mode Ambulatory Patient Identification Verified (Name & Yes ) Vital Signs Temperature (97.8 F-99.1 F) 97.1 F L Temperature Source Temporal Pulse Rate (60-100) 65 Pulse Location Monitor Respiratory Rate (12-18) 18 Respiratory rate source Observation Oxygen Delivery Method Room Air Blood Pressure (90/60-120/80) 146/73 H Blood Pressure Mean 97 Source Monitor Position Semi-Fowlers Blood Pressure Location Left Arm History Since Last Visit- (Skip if this is Patient's initial visit) Left Footwear Regular Shoe Right Footwear Regular Shoe Pain Scale: 0-10 Numeric Is Patient Pain Free? Yes Lower Extremity Assessment/ Foot Assessment/ Toe Nail Assessment Right -Posterior Tibial Doppler Monophasic -Dorsalis Pedis Doppler Monophasic -Hair Growth on Legs No -Hair Growth on Toes No Left -Posterior Tibial Doppler Monophasic -Dorsalis Pedis Doppler Monophasic -Hair Growth on Legs No -Hair Growth on Toes No Communication Assessment Preferred language Cypriot Able to Read Yes Able to Write Yes Caregiver Communication Skills No Impairment Impairment Right Hearing Abillity Normal Left Hearing Abillity Normal Visual Assistive Devices Glasses Teaching Assessment Preferences Verbal,Written, Demonstration Barriers to Learning None Readiness To Learn Excellent Willingness to Engage in Self Management High Activies Readiness to Engage in Self Management High Activities Anxiety Level Calm Cooperation Cooperative Perception Coherent Interest in Health Problem Asks Questions Education Importance Acknowledges Need Does Patient Smoke tobacco or other Yes substances Smoking Status Never smoker Is Patient Diabetic No Functional Assessment Recent Decline in Ability to Perform Denies Any Declines - Nurse 1 - General Ulcer Measurement Start: 04/27/24 08:42 Freq: Status: Active Protocol: Activity Type Activity Date Activity User E-sign Co-sign Detail Recorded Client Recorded Date Recorded By Document 04/27/24 08:50 GM 04/27/24 09:07 GM 04/27/24 08:50 Wound Center Nurse 1 #3 LT LAT LE -Current Size (cm) - Length 6 -Current Size (cm) - Width 1 -Current Size (cm) - Depth 0.4 -Total Square Cm 6 -Date of Last Picture (Recall this 04/27/24 field) -Exudate Amt Medium -Exudate Type Serosanguineous -Wound Margin Distinct, Outline Attached -Granulation Amt Small (1-33%) -Granulation Quality Red -Necrosis Amt Large (67-100%) -Necrotic Tissue Type Eschar -Texture (Yuly-wound Skin Appearance) Assessed -Moisture (Yuyl-wound Skin Appearance) Assessed -Color (Yuly-wound Skin Appearance) Assessed, Erythema -Temperature (Yuly-wound Skin No Abnormality Appearance) (Pt Warm) -Tenderness on Palpation (Yuly-wound No Skin Appearance) -Ulcer Cleansing Rinsed/ Irrigated with Saline -Foul Odor after Cleansing No -Anesthetic Used 5% Lidocaine Gel #2 RT MED LEG -Current Size (cm) - Length 0.9 -Current Size (cm) - Width 0.5 -Current Size (cm) - Depth 0.1 -Total Square Cm 0.45 -Date of Last Picture (Recall this 04/27/24 field) -Exudate Amt None Present -Necrosis Amt Large (67-100%) -Necrotic Tissue Type Eschar -Texture (Yuly-wound Skin Appearance) Assessed, Localized Edema -Moisture (Yuly-wound Skin Appearance) Assessed -Color (Yuly-wound Skin Appearance) Assessed, Erythema -Temperature (Yuly-wound Skin No Abnormality Appearance) (Pt Warm) -Tenderness on Palpation (Yuly-wound No Skin Appearance) -Ulcer Cleansing Rinsed/ Irrigated with Saline -Foul Odor after Cleansing No -Anesthetic Used 5% Lidocaine Gel Right Calf (cm) 37.5 Right Ankle (cm) 22.5 Left Calf (cm) 36 Left Ankle (cm) 23.5 Additional Wound Wound debrided: Right lower extremity Laterality: Right Wound Grade/Stage: Tate stage I Type of Debridement: Excisional debridement Anesthesia Used: 5% Lidocaine Gel Depth: Down to and including healthy tissue and in the subcutaneous layer Percentage of wound debrided: 100 Instrument Used: 5mm curette Tissue Removed: Fibrous, devitalized subcutaneous, biofilm, slough Severity: Fat Layer Exposed Amount of bleeding with debridement: Mild Bleeding Controlled with: Compression and gauze Patient tolerated procedure: Patient tolerated procedure well Assessment/Plan Assessment/Plan (1) Non-pressure chronic ulcer of left calf with fat layer exposed: CODE(S): L97.222 - Non-pressure chronic ulcer of left calf with fat layer exposed (2) Non-pressure chronic ulcer of right calf with fat layer exposed: CODE(S): L97.212 - Non-pressure chronic ulcer of right calf with fat layer exposed (3) Bilateral edema of lower extremity: CODE(S): R60.0 - Localized edema (4) Venous insufficiency (chronic) (peripheral): CODE(S): I87.2 - Venous insufficiency (chronic) (peripheral) PLAN: Plan Patient seen and evaluated Ulcerations to the bilateral lower extremities underwent debridement as noted in the clinical panel above. Ulceration to the right lower extremity measures 0.9 cm x 0.5 cm x 0.1 cm. No signs of infection. Left lower extremity ulceration measures 6.3 cm x 1.5 cm x 0.1 cm. No signs of infection. Ann was applied to ulcerative sites today and dressed with dry sterile dressing. He was instructed to continue to change the dressing daily. He was also instructed to ensure the dressings remain in place at all times and to not leave the site open to air. Will seek approval for EpiFix application for the left lower extremity at next visit as ulceration has been present for 3 weeks without healing currently. Will obtain venous studies and LEAS for further evaluation due to history of CABG and weakly palpable pulses of the left lower extremity. Discussed adequate protein intake to aid in wound healing. Andre supplementation was recommended. Recommended continued elevation of the lower extremities at times of rest for aiding in edema control. Tubigrip compression was also applied today. Discussed signs and symptoms of infection. He was instructed that if he notices increasing redness about the ulcerative sites that moves up the leg, if purulent drainage emerges from the wound sites, increasing foul odor of the wound sites, or if he experiences fever greater than 101 degree accompanied by nausea, vomiting, chills that these are signs of a progressing infection and he should report to the ED for IV antibiotics and for further evaluation. He is understanding of this today. The following work up and care recommendations were made: Dressing: Ann and dry sterile dressing. Change daily. Wash: Soap and water Tissue growth optimization: Ann Offload: To ensure that he does not bump wound sites. Vascular: Palpable DP and PT pulses right lower extremity; weakly palpable DP and PT pulses left lower extremity. Venous studies and LEAS were ordered 04/27/24 for further evaluation, awaiting results. Edema: There is some nonpitting mild pedal edema and some edema about the ulcerative sites. Recommended continued elevation of lower extremities to aid in edema control. Tubigrip compression was also applied. Infection: No signs of infection currently. Pain: May take [id number] Tylenol extra strength for discomfort Host factors: Advanced age I answered all the patient's questions. To return to the wound healing center in 2 weeks or call sooner if the patient has any questions or concerns.
== END 2024-04-30 23:59 | disposition home or self-care (01) ==
LOC: WC 08:32
PROVIDERS: PCP Family Medicine; Referring Provider Family Medicine; Visit Provider Student in an Organized Health Care Education/Training Program
DX: L97.222 Non-pressure chronic ulcer of left calf with fat layer exposed (principal); L97.212 Non-pressure chronic ulcer of right calf with fat layer exposed; I87.2 Venous insufficiency (chronic) (peripheral); I10 Essential (primary) hypertension; Z79.82 Long term (current) use of aspirin; R60.0 Localized edema; Z90.49 Acquired absence of other specified parts of digestive tract; Z95.1 Presence of aortocoronary bypass graft
CPT/HCPCS: 11042; 99214; G0463

== ENCOUNTER 2024-05-25 09:00 | Outpatient (RCR) | payer MEDICARE, SELFPAY ==
[2024-05-01 00:26] VITALS: BP 146/73; PULSE 65; RESP 18; TEMP 36.2
--- NOTE | 2024-05-10 12:42 | VDLE_ITS ---
Reason For Study: BLE Edema / Swelling RIGHT LEFT CFV is compressible, spontaneous, phasic, CFV is compressible, spontaneous, phasic, competent and demonstrates normal competent, and demonstrates normal augmentation. augmentation. FV is compressible, spontaneous, phasic, FV is compressible, spontaneous, phasic, competent and demonstrates normal competent and demonstrates normal augmentation. augmentation. POP V is compressible, phasic, and POP V is compressible, spontaneous, phasic, INCOMPETENT for greater than 1.0 second. competent and demonstrates normal T/P Trunk is compressible. augmentation. PTV is compressible. T/P Trunk is compressible. Honey V is PARTIALLY COMPRESSIBLE at mid calf PTV is compressible. w/ intraluminal echoes noted. Vessel appears LT PerV is compressible. compressible at prox and distal. SFJ is INCOMPETENT and measures 0.74 cm. SFJ is competent and measures 0.71 cm. HX of CABG GSV proximal thigh measures 0.48 x 0.51 cm. GSV non visualized from prox to dist thigh GSV at knee measures 0.34 x 0.36 cm. GSV Competent below knee. GSV above knee is competent. GSV at knee measures 0.18 x 0.19 cm. GSV below knee is INCOMPETENT for greater SSV proximal calf is competent and measures than 0.5 seconds. 0.23 x 0.24 cm. SSV proximal calf is competent and measures 0.34 x 0.35 cm. Procedure This is a venous duplex using B-mode, color flow and spectral Doppler. Exam performed in department. The exam was diagnostic. VL/Venous Duplex US - Carlos Extrem Interpretation Summary Chronic venous changes are noted in the right peroneal vein. The remainder of t he right lower extremity deep venous system is patent and compressible. The right popliteal ve in is incompetent. Deep veins of the left lower extremity are patent and compressible segmentally. There is no evidence of left lower extremity deep vein thrombosis. Valvular competence appears intac t within the proximal deep venous system on the left . The right sapheno-femoral junction is competen t . The left sapheno- femoral junction is incompetent . The right great saphenous vein appears patent and compressible segmentally. The right great saphenous vein appears competent above the knee. T he right great saphenous vein appears incompetent below the knee. The left great saphenous vei n is absent in the thigh. The left great saphenous vein is patent and competent below the knee. Sm all saphenous veins are patent and competent bilaterally. Ordering Physician: Castillo Bender Referring Physician: Igor Miramontes Performed By: Ambrose Mercedes RVT
--- NOTE | 2024-05-10 12:42 | ART_ITS ---
Reason For Study: PVD Procedure A bilateral lower extremity continuous wave Doppler with analog waveform analysis,segmental pressures,and ankle brachial indexes without exercise. Left Segmental Pressures Left brachial= 146mmHg. Left posterior tibial artery = >254mmHg. Left dorsalis pedis artery = >254mmHg. Left digit = 132 mmHg. The left posterior tibial artery waveforms are triphasic. The left dorsalis pedis waveforms are triphasic. Right Segmental Pressures Right brachial= 153mmHg. Right posterior tibial artery = >254mmHg. Right dorsalis pedis artery = >254mmHg. Right digit = 136 mmHg. The right posterior tibial artery waveforms are triphasic. The right dorsalis pedis waveforms are triphasic. Indices The right ankle brachial index by the posterior tibial artery is N/C. The right ankle brachial index by the dorsalis pedis is N/C. The right digital-brachial index is 0.89. The left ankle brachial index by the posterior tibial artery is N/C. The left ankle brachial index by the dorsalis pedis is N/C. The left digital-brachial index is 0.86. VL/Lower Ext Art Exam w/o Exercis Interpretation Summary Triphasic Doppler waveforms are noted at ankle level bilaterally. Pulse-volume recordings appear satisfactory at all levels bilaterally. Resting ankle-brachial indices could no t be determined on either side due to the non-compressibility of the vasculature at ankle level bi laterally. Digital- brachial indices are normal bilaterally. There is evidence of arterial calcification at ankle level bilaterally. There i s no evidence of significant arterial occlusive disease in the lower extremities bilaterally. Ordering Physician: Castillo Bender Referring Physician: Igor Miramontes Performed By: Ambrose Mercedes RVT
[2024-05-11 08:42] VITALS: BP 117/79; PULSE 71; RESP 18; TEMP 35.8
--- NOTE | 2024-05-11 08:56 | PCM.WC.PN ---
History of Present Illness Date of Service: 05/11/24 Chief Complaint: Left lower extremity ulceration History of Wound: Patient is a 78-year-old male with PMHx of CABG. He states that in middle of April 2024 he was in a darden in doing some things around the yard and she had when he backed up into the wood splitter and bumped his left lower extremity. States that he did end up having a scab that did form over this wound and he continued applying Bactroban ointment however the wound did continue to breakdown and split open. He did not seek treatment at this time until 2 weeks later when he did suffer a fall and did go to the ED on 04/25/2024 at [facility]. He was instructed to continue to follow-up with his PCP and was placed on Keflex and did complete oral antibiotic treatment however the wound continued to fail to progress in healing. He was then referred to the wound care center for continued aid in his ulcer healing. He states that he does continue to apply the Bactroban ointment and dress it nightly. States that he does not put dressings on it during the daytime and does leave it open to air. Denies N/V/F/chills. Denies further complaints. Subjective Subjective This is a 78-year-old male who presents to the wound care center today for follow-up of bilateral lower extremity ulcerations. He reports that he did have his vascular studies performed yesterday. States that his still assisting with dressing changes daily. Denies constitutional symptoms. Denies further complaints. Objective Data Objective Data Vital Signs: Vital Signs Temp Pulse Resp BP 96.4 F L 71 18 117/79 05/11/24 08:42 05/11/24 08:42 05/11/24 08:42 05/11/24 08:42 Radiography Diagnostic Testing: Radiology Impression Extremity Arterial Study 05/10/24 12:42 Interpretation Summary Triphasic Doppler waveforms are noted at ankle level bilaterally. Pulse-volume recordings appear satisfactory at all levels bilaterally. Resting ankle-brachial indices could not be determined on either side due to the non-compressibility of the vasculature at ankle level bilaterally. Digital- brachial indices are normal bilaterally. There is evidence of arterial calcification at ankle level bilaterally. There is no evidence of significant arterial occlusive disease in the lower extremities bilaterally. Ordering Physician: Castillo Bender Referring Physician: Igor Miramontes Performed By: Ambrose Mercedes Chance Physical Exam Const alert, oriented x3 and no apparent distress General Appearance: cooperative HEENT normocephalic Eyes General Eye: normal appearance of both eyes Neck General: normal visual inspection Lymph Lymphatic: no lymphadenopathy noted and no lymphedema noted Resp normal respiratory effort Cardio regular rate and regular rhythm Extremity Extremity Narrative: Vascular: DP and PT pulses are weakly palpable to the left lower extremity and are palpable to the right lower extremity. CFT is less than 4 seconds to the right lower extremity but less than 5 seconds to the left lower extremity. Normal temperature gradient bilateral. Hair growth is absent to the digits bilateral. Neurologic: Light sensation intact. Gross sensation intact. Epicritic sensation intact. Motor sensation intact. No focal deficits are noted. Musculoskeletal: Muscle strength 5 of 5 age-appropriate. He does have decreased range of motion of the ankle joint in dorsiflexion with the knee extended without pain or crepitus bilateral. And decreased range of motion of the first metatarsophalangeal joint in dorsiflexion with foot loaded and unloaded without pain or crepitus. There is some tenderness to palpation about the ulcerative site on the right lower extremity. Dermatologic: Skin appears well-hydrated. There are some varicosities noted to the lower extremities. There is a superficial ulceration to the anterior medial right lower extremity with healthy granular base. No signs of infection. There is an ulceration noted to the lateral aspect of the left lower extremity with mixed fibrogranular layer. No signs of infection. Skin no rashes or lesions noted, skin turgor normal and no jaundice Neuro moves all extremities Debridement Note Debridement Note Wound debrided: Left lower extremity Laterality: Left Wound Grade/Stage: Tate stage I Type of Debridement: Excisional debridement Anesthesia Used: 5% Lidocaine Gel Depth: Down to and including healthy tissue and in the subcutaneous layer Percentage of wound debrided: 100 Instrument Used: 5mm curette Tissue Removed: Fibrous, devitalized subcutaneous, biofilm, slough Severity: Fat Layer Exposed Amount of bleeding with debridement: Mild Bleeding Controlled with: Compression and gauze Patient tolerated procedure: Patient tolerated procedure well Post-Debridement Measurements and Additional Note: Post-Debridement Measurements/Treatment PARUL - Nurse 1 - General Ulcer Assessment Start: 05/11/24 08:40 Freq: Status: Active Protocol: MARIANNE Activity Type Activity Date Activity User E-sign Co-sign Detail Recorded Client Recorded Date Recorded By Document 05/11/24 08:42 DL 25.7 05/11/24 08:52 DL 05/11/24 08:42 WC - Today's Visit Information Type of service 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 Any new allergies or adverse reactions No Had a fall/change in ADL's that may No increase risk of falls Signs or symptoms of abuse and/or No neglect since last visit Have you been in the hospital since your No last visit? Has dressing in place as prescribed Yes Has compression in place as prescribed Yes Has offloadiing in place as prescribed Yes Experienced any changes in pain level or No management Left Footwear Regular Shoe Right Footwear Regular Shoe Pain Scale: 0-10 Numeric Is Patient Pain Free? Yes - Nurse 1 - General Ulcer Measurement Start: 05/11/24 08:40 Freq: Status: Active Protocol: Activity Type Activity Date Activity User E-sign Co-sign Detail Recorded Client Recorded Date Recorded By Document 05/11/24 08:42 DL [id number] 05/11/24 08:52 DL 05/11/24 08:42 Wound Center Nurse 1 #3 LT LAT LE -Current Size (cm) - Length 5.5 -Current Size (cm) - Width 1.3 -Current Size (cm) - Depth 0.3 -Total Square Cm 7.15 -Exudate Amt Medium -Exudate Type Serosanguineous -Wound Margin Distinct, Outline Attached -Granulation Amt Small (1-33%) -Granulation Quality [place] -Necrosis Amt Large (67-100%) -Necrotic Tissue Type Adherent Slough -Structure Exposed N/A -Texture (Yuly-wound Skin Appearance) Scarring -Moisture (Yuly-wound Skin Appearance) No Abnormality -Color (Yuly-wound Skin Appearance) Erythema, Hemosiderin Staining -Temperature (Yuly-wound Skin No Abnormality Appearance) (Pt Warm) -Tenderness on Palpation (Yuly-wound No Skin Appearance) -Ulcer Cleansing Soap and Water -Foul Odor after Cleansing No -Anesthetic Used 5% Lidocaine Gel #2 RT MED LEG -Current Size (cm) - Length 0.4 -Current Size (cm) - Width 0.3 -Current Size (cm) - Depth 0.1 -Total Square Cm 0.12 -Exudate Amt Small -Exudate Type Serosanguineous -Wound Margin Distinct, Outline Attached -Granulation Amt Small (1-33%) -Granulation Quality [place] -Necrosis Amt Small (1-33%) -Necrotic Tissue Type Adherent Slough -Structure Exposed N/A -Texture (Yuly-wound Skin Appearance) Scarring -Moisture (Yuly-wound Skin Appearance) No Abnormality -Color (Yuly-wound Skin Appearance) No Abnormality -Temperature (Yuly-wound Skin No Abnormality Appearance) (Pt Warm) -Ulcer Cleansing Soap and Water -Foul Odor after Cleansing No -Anesthetic Used 5% Lidocaine Gel Right Calf (cm) 35.5 Right Ankle (cm) 21.3 Left Calf (cm) 35 Left Ankle (cm) 21.8 Additional Wound Wound debrided: Right lower extremity Laterality: Right Wound Grade/Stage: Tate stage I Type of Debridement: Excisional debridement Anesthesia Used: 5% Lidocaine Gel Depth: Down to and including healthy tissue and in the subcutaneous layer Percentage of wound debrided: 100 Instrument Used: 5mm curette Tissue Removed: Fibrous, devitalized subcutaneous, biofilm, slough Severity: Fat Layer Exposed Amount of bleeding with debridement: Mild Bleeding Controlled with: Compression and gauze Patient tolerated procedure: Patient tolerated procedure well Assessment/Plan Assessment/Plan (1) Non-pressure chronic ulcer of left calf with fat layer exposed: CODE(S): L97.222 - Non-pressure chronic ulcer of left calf with fat layer exposed (2) Non-pressure chronic ulcer of right calf with fat layer exposed: CODE(S): L97.212 - Non-pressure chronic ulcer of right calf with fat layer exposed (3) Bilateral edema of lower extremity: CODE(S): R60.0 - Localized edema (4) Venous insufficiency (chronic) (peripheral): CODE(S): I87.2 - Venous insufficiency (chronic) (peripheral) PLAN: Plan Patient seen and evaluated Pre-debridement: Right: 0.5cm x 0.3cm x 0.1cm; Left: 5.4cm x 1.7cm x 0.2cm Ulcerations to the bilateral lower extremities underwent debridement as noted in the clinical panel above. Post-debridement Ulceration to the right lower extremity measures 0.6 cm x 0.4 cm x 0.1 cm. No signs of infection. Left lower extremity ulceration measures 5.5 cm x 1.8 cm x 0.2 cm. No signs of infection. Ann was applied to ulcerative sites today and dressed with dry sterile dressing. He was instructed to continue to change the dressing daily. He was also instructed to ensure the dressings remain in place at all times and to not leave the site open to air. Ulcerations demonstrate some reduction in size of versus the previous visit. Will seek approval for EpiFix application for the left lower extremity at next visit as ulceration has been present for 4 weeks without healing currently. Venous studies and LEAS were performed for further evaluation due to history of CABG and weakly palpable pulses of the left lower extremity. LEAS demonstrates triphasic PT and DP pulses bilateral. No evidence of arterial occlusive disease. Venous studies demonstrate right popliteal vein incompetence, left Sapho-femoral junction incompetent left lower extremity, right great saphenous vein incompetent below the knee, left great saphenous vein is absent in the thigh but patent and competent below the knee. Results of his vascular studies were discussed with him today. Discussed adequate protein intake to aid in wound healing. Andre supplementation was recommended. Recommended continued elevation of the lower extremities at times of rest for aiding in edema control. Tubigrip compression was also applied today. Discussed signs and symptoms of infection. He was instructed that if he notices increasing redness about the ulcerative sites that moves up the leg, if purulent drainage emerges from the wound sites, increasing foul odor of the wound sites, or if he experiences fever greater than 101 degree accompanied by nausea, vomiting, chills that these are signs of a progressing infection and he should report to the ED for IV antibiotics and for further evaluation. He is understanding of this today. The following work up and care recommendations were made: Dressing: Ann and dry sterile dressing. Change daily. Wash: Soap and water Tissue growth optimization: Ann Offload: To ensure that he does not bump wound sites. Vascular: Palpable DP and PT pulses right lower extremity; weakly palpable DP and PT pulses left lower extremity. Venous studies and LEAS were ordered 04/27/24 for further evaluation, awaiting results. Edema: There is some nonpitting mild pedal edema and some edema about the ulcerative sites. Recommended continued elevation of lower extremities to aid in edema control. Tubigrip compression was also applied. Infection: No signs of infection currently. Pain: May take [id number] Tylenol extra strength for discomfort Host factors: Advanced age I answered all the patient's questions. To return to the wound healing center in 2 weeks or call sooner if the patient has any questions or concerns.
[2024-05-25 08:58] VITALS: BP 139/76; PULSE 70; RESP 18; TEMP 36
--- NOTE | 2024-05-25 10:13 | PCM.WC.PN ---
History of Present Illness Date of Service: 05/25/24 Chief Complaint: Left lower extremity ulceration History of Wound: Patient is a 78-year-old male with PMHx of CABG. He states that in middle of April 2024 he was in a darden in doing some things around the yard and she had when he backed up into the wood splitter and bumped his left lower extremity. States that he did end up having a scab that did form over this wound and he continued applying Bactroban ointment however the wound did continue to breakdown and split open. He did not seek treatment at this time until 2 weeks later when he did suffer a fall and did go to the ED on 04/25/2024 at [facility]. He was instructed to continue to follow-up with his PCP and was placed on Keflex and did complete oral antibiotic treatment however the wound continued to fail to progress in healing. He was then referred to the wound care center for continued aid in his ulcer healing. He states that he does continue to apply the Bactroban ointment and dress it nightly. States that he does not put dressings on it during the daytime and does leave it open to air. Denies N/V/F/chills. Denies further complaints. Subjective Subjective This is a 78-year-old male who presents to the wound care center today for follow-up of bilateral lower extremity ulcerations. States that his still assisting with dressing changes daily. She states that his ulcerations are improving and wounds are getting smaller. Denies constitutional symptoms. Denies further complaints. Objective Data Objective Data Vital Signs: Vital Signs Temp Pulse Resp BP O2 Del Method 96.8 F L 70 18 139/76 H Room Air 05/25/24 08:58 05/25/24 08:58 05/25/24 08:58 05/25/24 08:58 05/25/24 08:58 Oxygen Delivery Method Room Air Physical Exam Const alert, oriented x3 and no apparent distress General Appearance: cooperative HEENT normocephalic Eyes General Eye: normal appearance of both eyes Neck General: normal visual inspection Lymph Lymphatic: no lymphadenopathy noted and no lymphedema noted Resp normal respiratory effort Cardio regular rate and regular rhythm Extremity Extremity Narrative: Vascular: DP and PT pulses are weakly palpable to the left lower extremity and are palpable to the right lower extremity. CFT is less than 4 seconds to the right lower extremity but less than 5 seconds to the left lower extremity. Normal temperature gradient bilateral. Hair growth is absent to the digits bilateral. Neurologic: Light sensation intact. Gross sensation intact. Epicritic sensation intact. Motor sensation intact. No focal deficits are noted. Musculoskeletal: Muscle strength 5 of 5 age-appropriate. He does have decreased range of motion of the ankle joint in dorsiflexion with the knee extended without pain or crepitus bilateral. And decreased range of motion of the first metatarsophalangeal joint in dorsiflexion with foot loaded and unloaded without pain or crepitus. There is some tenderness to palpation about the ulcerative site on the right lower extremity. Dermatologic: Skin appears well-hydrated. There are some varicosities noted to the lower extremities. There is a superficial ulceration to the anterior medial right lower extremity with healthy granular base. No signs of infection. There is an ulceration noted to the lateral aspect of the left lower extremity with mixed fibrogranular layer. No signs of infection. Skin no rashes or lesions noted, skin turgor normal and no jaundice Neuro moves all extremities Debridement Note Debridement Note Wound debrided: Left lower extremity Laterality: Left Wound Grade/Stage: Tate stage I Type of Debridement: Excisional debridement Anesthesia Used: 5% Lidocaine Gel Depth: Down to and including healthy tissue and in the subcutaneous layer Percentage of wound debrided: 100 Instrument Used: 5mm curette Tissue Removed: Fibrous, devitalized subcutaneous, biofilm, slough Severity: Fat Layer Exposed Amount of bleeding with debridement: Mild Bleeding Controlled with: Compression and gauze Patient tolerated procedure: Patient tolerated procedure well Post-Debridement Measurements and Additional Note: Post-Debridement Measurements/Treatment - Nurse 1 - General Ulcer Assessment Start: 05/11/24 08:40 Freq: Status: Active Protocol: [email or web address].[email or web address] Activity Type Activity Date Activity User E-sign Co-sign Detail Recorded Client Recorded Date Recorded By Document 05/11/24 08:42 DL 10.10.25.7 05/11/24 08:52 DL Document 05/25/24 08:58 KW l 05/25/24 09:04 KW 05/11/24 05/25/24 08:42 08:58 - Today's Visit Information Type of service Follow-up Visit Follow-up Visit (Physician/ELECTROCARDIOGRAM TECHNICIAN (Physician/ELECTROCARDIOGRAM TECHNICIAN ) ) Arrival Mode Ambulatory Ambulatory Transfer Assistance None Accompanied by Patient Identification Verified (Name & Yes Yes ) Patient Requires Transmission-Based No Precautions Vital Signs Temperature (97.8 F-99.1 F) 96.4 F L 96.8 F L Temperature Source Temporal Temporal Pulse Rate (60-100) 71 70 Pulse Location Monitor Monitor Respiratory Rate (12-18) 18 18 Respiratory rate source Observation Observation Oxygen Delivery Method Room Air Blood Pressure (90/60-120/80) 117/79 139/76 H Blood Pressure Mean (mm Hg) 91 97 Source Monitor Monitor Position Semi-Fowlers Blood Pressure Location Left Arm History Since Last Visit- (Skip if this is Patient's initial visit) Have you changed medications since your No No last visit? Any new allergies or adverse reactions No No Had a fall/change in ADL's that may No No increase risk of falls Signs or symptoms of abuse and/or No No neglect since last visit Have you been in the hospital since your No No last visit? Has dressing in place as prescribed Yes Yes Has compression in place as prescribed Yes Yes Has offloadiing in place as prescribed Yes N/A Experienced any changes in pain level or No No management Left Footwear Regular Shoe Regular Shoe Right Footwear Regular Shoe Regular Shoe Pain Scale: 0-10 Numeric Is Patient Pain Free? Yes Yes WC - Nurse 1 - General Ulcer Measurement Start: 05/11/24 08:40 Freq: Status: Active Protocol: Activity Type Activity Date Activity User E-sign Co-sign Detail Recorded Client Recorded Date Recorded By Document 05/11/24 08:42 DL 10.10.25.7 05/11/24 08:52 DL Document 05/25/24 08:58 KW l 05/25/24 09:04 KW 05/11/24 05/25/24 08:42 08:58 Wound Center Nurse 1 #3 LT LAT LE -Current Size (cm) - Length 5.5 4.7 -Current Size (cm) - Width 1.3 1.4 -Current Size (cm) - Depth 0.3 0.2 -Total Square Cm 7.15 6.58 -Exudate Amt Medium Small -Exudate Type Serosanguineous Serosanguineous -Wound Margin Distinct, Distinct, Outline Outline Attached Attached -Granulation Amt Small (1-33%) Medium (34-66%) -Granulation Quality [place] -Necrosis Amt Large (67-100%) Medium (34-66%) -Necrotic Tissue Type Adherent Slough Adherent Slough -Structure Exposed N/A -Texture (Yuly-wound Skin Appearance) Scarring Assessed -Moisture (Yuly-wound Skin Appearance) No Abnormality Assessed -Color (Yuly-wound Skin Appearance) Erythema, Assessed Hemosiderin Staining -Temperature (Yuly-wound Skin No Abnormality No Abnormality Appearance) (Pt Warm) (Pt Warm) -Tenderness on Palpation (Yuly-wound No No Skin Appearance) -Ulcer Cleansing Soap and Water Rinsed/ Irrigated with Saline -Foul Odor after Cleansing No -Anesthetic Used 5% Lidocaine 5% Lidocaine Gel Gel #2 RT MED LEG -Current Size (cm) - Length 0.4 0.1 -Current Size (cm) - Width 0.3 0.1 -Current Size (cm) - Depth 0.1 0.1 -Total Square Cm 0.12 0.01 -Exudate Amt Small -Exudate Type Serosanguineous -Wound Margin Distinct, Outline Attached -Granulation Amt Small (1-33%) -Granulation Quality [place] -Necrosis Amt Small (1-33%) -Necrotic Tissue Type Adherent Slough -Structure Exposed N/A -Texture (Yuly-wound Skin Appearance) Scarring -Moisture (Yuly-wound Skin Appearance) No Abnormality -Color (Yuly-wound Skin Appearance) No Abnormality -Temperature (Yuly-wound Skin No Abnormality Appearance) (Pt Warm) -Ulcer Cleansing Soap and Water -Foul Odor after Cleansing No -Anesthetic Used 5% Lidocaine Gel Right Calf (cm) 35.5 36 Right Ankle (cm) 21.3 29.9 Left Calf (cm) 35 34.6 Left Ankle (cm) 21.8 28 WC - Nurse 2 - General Ulcer CM Notes Start: 05/11/24 08:40 Freq: Status: Active Protocol: Activity Type Activity Date Activity User E-sign Co-sign Detail Recorded Client Recorded Date Recorded By Document 05/11/24 08:59 BMF 10..25.7 05/11/24 09:06 BMF Document 05/25/24 09:08 BMF 10..25.7 05/25/24 09:17 BMF 05/11/24 05/25/24 08:59 09:08 Wound Center Nurse 2 #3 LT LAT LE -Time 09:01 09:14 -Correct Patient Yes Yes -Correct Side, Site, Position Yes Yes -Correct Procedure Yes Yes -Procedure Performed Yes Yes -Type of Procedure Debridement Debridement -Clinical Debridement Subcutaneous Subcutaneous -Tissue Removed Subcutaneous Subcutaneous -Post Debridement (cm) - Length 5.5 4.7 -Post Debridement (cm) - Width 1.8 1.4 -Post Debridement (cm) - Depth 0.2 0.2 -Total Square (Post) (cm) 9.90 6.58 -Area of Debridement (cm) - Length 5.5 4.7 -Area of Debridement (cm) - Width 1.8 1.4 -Total Square (Area) (cm) 9.90 6.58 -Tunneling No No -Undermining/Tunneling No No -Circular Undermining No No -Wound/Ulcer Outcome Not Healed Not Healed -Ulcer Cleansing Rinsed/ Rinsed/ Irrigated with Irrigated with Saline Saline -Foul Odor after Cleansing No No -Bioengineered Tissue No No -Type of Bioengineered Tissue Epifix Mesh -Expiration Date 11/01/28 -Product Lot Number [id number] -Percent Used 100 -Lot number of Saline Used [id number] -Bleeding Controlled with Pressure Pressure -Treatment Response Procedure Procedure Tolerated Well Tolerated Well -Debridement - Subq, 1st 20sq cm Yes No -Apply Skin Sub - 1st 25 sq cm - Legs 1 -Epifix Mesh (per sq cm) 11 #2 RT MED LEG -Time 09:01 09:10 -Correct Patient Yes -Correct Side, Site, Position Yes -Correct Procedure Yes -Procedure Performed Yes -Type of Procedure Debridement -Clinical Debridement Subcutaneous -Tissue Removed Subcutaneous -Post Debridement (cm) - Length 0.6 0.1 -Post Debridement (cm) - Width 0.3 0.1 -Post Debridement (cm) - Depth 0.1 0.1 -Total Square (Post) (cm) 0.18 0.01 -Area of Debridement (cm) - Length 0.6 0.1 -Area of Debridement (cm) - Width 0.3 0.1 -Total Square (Area) (cm) 0.18 0.01 -Tunneling No No -Undermining/Tunneling No No -Circular Undermining No No -Wound/Ulcer Outcome Not Healed Not Healed -Ulcer Cleansing Rinsed/ Irrigated with Saline -Foul Odor after Cleansing No -Bioengineered Tissue No -Bleeding Controlled with Pressure NA -Treatment Response Procedure Tolerated Well -Debridement - Subq, 1st 20sq cm No -Apply Skin Sub - 1st 25 sq cm - Legs 1 -Epifix Mesh (per sq cm) 11 Pain Scale: 0-10 Numeric Is Patient Pain Free? Yes Yes - Nurse 3 - General Ulcer D/C NN Start: 05/11/24 08:40 Freq: Status: Active Protocol: Activity Type Activity Date Activity User E-sign Co-sign Detail Recorded Client Recorded Date Recorded By Document 05/11/24 09:27 DL 10.10.25.7 05/11/24 09:39 DL Document 05/25/24 09:39 DL 10.08.25.7 05/25/24 09:41 DL 05/11/24 05/25/24 09:27 09:39 Wound Care Center Nurse 3 #3 LT LAT LE -Ulcer Cleansing Soap and Water Not Cleansed -Foul Odor after Cleansing No No -Primary Dressing Applied Promogran Keyur Matter -Other Dressing epifix -Primary Dressing Covered/Secured with Dry Gauze & Dry Gauze, Roll Gauze, Secured with Secured with Tape Tape -Promogran Keyur Matter 1 #2 RT MED LEG -Ulcer Cleansing Soap and Water -Foul Odor after Cleansing No -Other Dressing keyur -Primary Dressing Covered/Secured with Dry Gauze & Roll Gauze, Secured with Tape michael -Tubular Bandage Single Layer Single Layer -Size of Tubigrip Used Size E Size D -Size D ($) 1 -Size E ($) 1 Treatment Response Procedure Procedure Tolerated Well Tolerated Well Pain Scale: 0-10 Numeric Is Patient Pain Free? Yes Yes - Visit Discharge Discharge Condition Stable Stable Ambulatory Status Ambulatory Ambulatory Transportation Private Auto Private Auto Assessment/Plan Assessment/Plan (1) Non-pressure chronic ulcer of left calf with fat layer exposed: CODE(S): L97.222 - Non-pressure chronic ulcer of left calf with fat layer exposed (2) Non-pressure chronic ulcer of right calf with fat layer exposed: CODE(S): L97.212 - Non-pressure chronic ulcer of right calf with fat layer exposed (3) Bilateral edema of lower extremity: CODE(S): R60.0 - Localized edema (4) Venous insufficiency (chronic) (peripheral): CODE(S): I87.2 - Venous insufficiency (chronic) (peripheral) PLAN: Plan Patient seen and evaluated Pre-debridement: Right: 0.1cm x 0.1 cm x 0.1cm; Left: 4.6cm x 1.3cm x 0.2cm Ulcerations to the bilateral lower extremities underwent debridement as noted in the clinical panel above. Post-debridement Ulceration to the right lower extremity measures 0.1 cm x 0.1 cm x 0.1 cm. No signs of infection. Left lower extremity ulceration measures 4.7 cm x 1.4 cm x 0.2 cm. No signs of infection. Keyur was applied to ulcerative site of right lower extremity today and dressed with dry sterile dressing. EpiFix graft #1 applied to left lower extremity ulceration base and dressed with Adaptic touch and anchored with Steri-Strips. Dry sterile dressing applied to the lower extremity. He was instructed to continue to change the dressing daily to the right lower extremity. Discussed not to get the left lower extremity wet and utilize cast bag when showering. Ulcerations demonstrate reduction in size of versus the previous visit. He has been approved for EpiFix application for the left lower extremity. Will continue application Venous studies and LEAS were performed for further evaluation due to history of CABG and weakly palpable pulses of the left lower extremity. LEAS demonstrates triphasic PT and DP pulses bilateral. No evidence of arterial occlusive disease. Venous studies demonstrate right popliteal vein incompetence, left Sapho-femoral junction incompetent left lower extremity, right great saphenous vein incompetent below the knee, left great saphenous vein is absent in the thigh but patent and competent below the knee. Results of his vascular studies were discussed with him 05/11/24. Discussed adequate protein intake to aid in wound healing. Andre supplementation was recommended. Recommended continued elevation of the lower extremities at times of rest for aiding in edema control. Tubigrip compression was also applied today. Discussed signs and symptoms of infection. He was instructed that if he notices increasing redness about the ulcerative sites that moves up the leg, if purulent drainage emerges from the wound sites, increasing foul odor of the wound sites, or if he experiences fever greater than 101 degree accompanied by nausea, vomiting, chills that these are signs of a progressing infection and he should report to the ED for IV antibiotics and for further evaluation. He is understanding of this today. The following work up and care recommendations were made: Dressing: Keyur and dry sterile dressing right lower extremity. Change daily. EpiFix left lower extremity, change outer dressing as needed. Wash: Soap and water right lower extremity; do not get left lower extremity wet and utilize cast bag when showering to keep dressing dry. Tissue growth optimization: Keyur right lower extremity; EpiFix left lower extremity Offload: To ensure that he does not bump wound sites. Vascular: Palpable DP and PT pulses right lower extremity; weakly palpable DP and PT pulses left lower extremity. Venous studies and LEAS were ordered 04/27/24 for further evaluation, awaiting results. Edema: There is some nonpitting mild pedal edema and some edema about the ulcerative sites. Recommended continued elevation of lower extremities to aid in edema control. Tubigrip compression was also applied. Infection: No signs of infection currently. Pain: May take [id number] Tylenol extra strength for discomfort Host factors: Advanced age I answered all the patient's questions. To return to the wound healing center in 1 week or call sooner if the patient has any questions or concerns.
--- NOTE | 2024-05-31 12:05 | WC ---
PHOTO 05/25/24 LEFT LATERAL LE
--- NOTE | 2024-05-31 12:06 | WC ---
PHOTO 05/25/24 RIGHT MEDIAL LE
== END 2024-05-31 23:59 | disposition home or self-care (01) ==
LOC: WC 09:00
PROVIDERS: PCP Family Medicine; Referring Provider Family Medicine; Visit Provider Student in an Organized Health Care Education/Training Program
DX: L97.222 Non-pressure chronic ulcer of left calf with fat layer exposed (principal); L97.212 Non-pressure chronic ulcer of right calf with fat layer exposed; R60.0 Localized edema; I87.2 Venous insufficiency (chronic) (peripheral)
CPT/HCPCS: 11042; 15271; 93923; 93970; Q4186

== ENCOUNTER → 2024-06-22 | Outpatient (CLI) | payer MEDICARE, SELFPAY ==
--- NOTE | 2024-06-22 08:59 | RAD_ITS ---
STUDY: X-RAY - LUMBAR SPINE REASON FOR EXAM: Male, 78 years old. Post laminectomy syndrome. TECHNIQUE: 2 view(s) of the lumbar spine were obtained. COMPARISON: May 31, 2018 FINDINGS: Osteopenia. Slightly accentuated lordosis. Minimal dextroscoliosis. 9 mm of anterolisthesis of L3 on L2, slightly progressed since the prior study. Endplate concavities which may represent osteoporosis. Diffuse moderate lower thoracic and lumbosacral facet sclerosis most marked from L3 to S1. Diffuse intervertebral disc space narrowing with osteophytes most marked in the lower thoracic spine. Slight progression of intervertebral disc space narrowing at L1-2 to L5-S1 with increased osteophytes. Cholecystectomy clips, vascular calcifications and ovoid lobulated 9.5 mm in diameter calcification projected over the region of the lower pole of the right kidney RAD/Lumbar Spine 2 or 3 Views IMPRESSION: Osteopenia with progression of lower thoracic and lumbosacral spondylosis since the prior study. Limited flexion and extension with no abnormal motion. Probable right nephrocalcinosis. Electronically Signed: Michael Ruiz MD at 13:54 EDT ,
== END | disposition home or self-care (01) ==
LOC: RAD 08:58
PROVIDERS: PCP Family Medicine; Referring Provider Anesthesiology Pain Medicine; Visit Provider Anesthesiology Pain Medicine
DX: M96.1 Postlaminectomy syndrome, not elsewhere classified (principal); L97.222 Non-pressure chronic ulcer of left calf with fat layer exposed; L97.212 Non-pressure chronic ulcer of right calf with fat layer exposed; I87.2 Venous insufficiency (chronic) (peripheral); R60.0 Localized edema; Z95.1 Presence of aortocoronary bypass graft
CPT/HCPCS: 15271; 72100; Q4186

== ENCOUNTER 2024-06-29 08:00 | Outpatient (RCR) | payer MEDICARE, SELFPAY ==
[2024-06-01 00:41] VITALS: BP 146/73; PULSE 65; RESP 18; TEMP 36.2
[2024-06-01 10:29] VITALS: BP 125/74; PULSE 64; RESP 18; TEMP 35.7
--- NOTE | 2024-06-01 12:01 | PN.PCM_ITS ---
History of Present Illness Date of Service: 06/01/24 Chief Complaint: Left lower extremity ulceration History of Wound: Patient is a 78-year-old male with PMHx of CABG. He states that in middle of April 2024 he was in a darden in doing some things around the yard and she had when he backed up into the wood splitter and bumped his left lower extremity. States that he did end up having a scab that did form over this wound and he continued applying Bactroban ointment however the wound did continue to breakdown and split open. He did not seek treatment at this time until 2 weeks later when he did suffer a fall and did go to the ED on 04/25/2024 at [facility]. He was instructed to continue to follow-up with his PCP and was placed on Keflex and did complete oral antibiotic treatment however the wound continued to fail to progress in healing. He was then referred to the wound care center for continued aid in his ulcer healing. He states that he does continue to apply the Bactroban ointment and dress it nightly. States that he does not put dressings on it during the daytime and does leave it open to air. Denies N/V/F/chills. Denies further complaints. Subjective Subjective This is a 78-year-old male who presents to the wound care center today for follow-up of bilateral lower extremity ulcerations. States that his still assisting with dressing changes daily. States the Right leg has healed. He has l eft graft in place to the left leg and changing outer dressings as needed. Denies constitutional symptoms. Denies further complaints. Objective Data Objective Data Vital Signs: Vital Signs Temp Pulse Resp BP O2 Del Method 96.3 F L 64 18 125/74 H Room Air 06/01/24 10:29 06/01/24 10:29 06/01/24 10:29 06/01/24 10:29 06/01/24 10:29 Oxygen Delivery Method Room Air Physical Exam Const alert, oriented x3 and no apparent distress General Appearance: cooperative HEENT normocephalic Eyes General Eye: normal appearance of both eyes Neck General: normal visual inspection Lymph Lymphatic: no lymphadenopathy noted and no lymphedema noted Resp normal respiratory effort Cardio regular rate and regular rhythm Extremity normal capillary refill, no joint enlargement, no calf tenderness and no pedal edema Extremity Narrative: Vascular: DP and PT pulses are weakly palpable to the left lower extremity and are palpable to the right lower extremity. CFT is less than 4 seconds to the right lower extremity but less than 5 seconds to the left lower extremity. Normal temperature gradient bilateral. Hair growth is absent to the digits bilateral. Neurologic: Light sensation intact. Gross sensation intact. Epicritic sensation intact. Motor sensation intact. No focal deficits are noted. Musculoskeletal: Muscle strength 5 of 5 age-appropriate. He does have decreased range of motion of the ankle joint in dorsiflexion with the knee extended without pain or crepitus bilateral. Decreased range of motion of the first metatarsophalangeal joint in dorsiflexion with foot loaded and unloaded without pain or crepitus. Dermatologic: Skin appears well-hydrated. There are some varicosities noted to the lower extremities. Superficial ulceration to the anterior medial right lower extremity has healed. No signs of infection. There is an ulceration noted to the lateral aspect of the left lower extremity with mixed fibrogranular layer. No signs of infection. Skin no rashes or lesions noted, skin turgor normal and no jaundice Neuro moves all extremities Debridement Note Debridement Note Wound debrided: Left lateral leg Laterality: Left Wound Grade/Stage: Tate stage I Type of Debridement: Excisional debridement Anesthesia Used: 5% Lidocaine Gel Depth: Down to and including healthy tissue and in the subcutaneous layer Percentage of wound debrided: 100 Instrument Used: 5mm curette Tissue Removed: Fibrous, devitalized subcutaneous, biofilm, slough Severity: Fat Layer Exposed Amount of bleeding with debridement: Mild Bleeding Controlled with: Compression and gauze Patient tolerated procedure: Patient tolerated procedure well Post-Debridement Measurements and Additional Note: Post-Debridement Measurements/Treatment - Nurse 1 - General Ulcer Assessment Start: 06/01/24 10:28 Freq: Status: Active Protocol: [email or web address] Activity Type Activity Date Activity User E-sign Co-sign Detail Recorded Client Recorded Date Recorded By Document 06/01/24 10:29 KW [facility] 06/01/24 10:43 KW 06/01/24 10:29 - Today's Visit Information Type of service Follow-up Visit (Physician/LIGHT BULB REPLACER ) Arrival Mode Ambulatory Patient Identification Verified (Name & Yes ) Vital Signs Temperature (97.8 F-99.1 F) 96.3 F L Temperature Source Temporal Pulse Rate (60-100) 64 Pulse Location Monitor Respiratory Rate (12-18) 18 Respiratory rate source Observation Oxygen Delivery Method Room Air Blood Pressure (90/60-120/80) 125/74 H Blood Pressure Mean (mm Hg) 91 Source Monitor Position Semi-Fowlers Blood Pressure Location Left Arm History Since Last Visit- (Skip if this is Patient's initial visit) Have you changed medications since your No last visit? Any new allergies or adverse reactions No Had a fall/change in ADL's that may No increase risk of falls Signs or symptoms of abuse and/or No neglect since last visit Have you been in the hospital since your No last visit? Has dressing in place as prescribed Yes Has compression in place as prescribed Yes Has offloadiing in place as prescribed N/A Experienced any changes in pain level or No management Left Footwear Regular Shoe Right Footwear Regular Shoe Pain Scale: 0-10 Numeric Is Patient Pain Free? Yes WC - Nurse 1 - General Ulcer Measurement Start: 06/01/24 10:28 Freq: Status: Active Protocol: Activity Type Activity Date Activity User E-sign Co-sign Detail Recorded Client Recorded Date Recorded By Document 06/01/24 10:29 KW [facility] 06/01/24 10:43 KW 06/01/24 10:29 Wound Center Nurse 1 #2 RT MED LEG -Current Size (cm) - Length 0.1 -Current Size (cm) - Width 0.1 -Current Size (cm) - Depth 0 -Total Square Cm 0.01 -Date of Last Picture (Recall this 06/01/24 field) -Exudate Amt None Present -Texture (Yuly-wound Skin Appearance) Assessed -Moisture (Yuly-wound Skin Appearance) Assessed,Dry/ Scaly -Color (Yuly-wound Skin Appearance) Assessed -Temperature (Yuly-wound Skin No Abnormality Appearance) (Pt Warm) -Tenderness on Palpation (Yuly-wound No Skin Appearance) -Wound Comment(s) APPEARS TO BE HEALED #3 LT LAT LE -Current Size (cm) - Length 3 -Current Size (cm) - Width 1 -Current Size (cm) - Depth 0.3 -Total Square Cm 3 -Date of Last Picture (Recall this 06/01/24 field) -Epithelialization Small 1-33% -Exudate Amt Medium -Exudate Type Serosanguineous -Wound Margin Distinct, Outline Attached -Granulation Amt Large (67-100%) -Granulation Quality Red -Necrosis Amt Small (1-33%) -Necrotic Tissue Type Adherent Slough -Texture (Yuly-wound Skin Appearance) Assessed -Moisture (Yuly-wound Skin Appearance) Assessed -Color (Yuly-wound Skin Appearance) Assessed -Temperature (Yuly-wound Skin No Abnormality Appearance) (Pt Warm) -Tenderness on Palpation (Yuly-wound No Skin Appearance) -Ulcer Cleansing Soap and Water -Foul Odor after Cleansing No -Anesthetic Used 5% Lidocaine Gel Right Calf (cm) 35.5 Left Calf (cm) 35 WC - Nurse 2 - General Ulcer CM Notes Start: 06/01/24 10:28 Freq: Status: Active Protocol: Activity Type Activity Date Activity User E-sign Co-sign Detail Recorded Client Recorded Date Recorded By Document 06/01/24 11:26 [facility] [id number] 06/01/24 11:35 [facility] 06/01/24 11:26 Wound Center Nurse 2 #2 RT MED LEG -Post Debridement (cm) - Length 0 -Post Debridement (cm) - Width 0 -Post Debridement (cm) - Depth 0 -Total Square (Post) (cm) 0 -Area of Debridement (cm) - Length 0 -Area of Debridement (cm) - Width 0 -Total Square (Area) (cm) 0 -Wound/Ulcer Outcome Healed- Epithelialized #3 LT LAT LE -Time 11:27 -Correct Patient Yes -Correct Side, Site, Position Yes -Correct Procedure Yes -Procedure Performed Yes -Type of Procedure Debridement -Clinical Debridement Subcutaneous -Tissue Removed Subcutaneous -Post Debridement (cm) - Length 3.1 -Post Debridement (cm) - Width 1.5 -Post Debridement (cm) - Depth 0.1 -Total Square (Post) (cm) 4.65 -Area of Debridement (cm) - Length 3.1 -Area of Debridement (cm) - Width 1.5 -Total Square (Area) (cm) 4.65 -Tunneling No -Undermining/Tunneling No -Circular Undermining No -Wound/Ulcer Outcome Not Healed -Ulcer Cleansing Rinsed/ Irrigated with Saline -Foul Odor after Cleansing No -Bioengineered Tissue No -Type of Bioengineered Tissue Epifix Mesh -Expiration Date 12/02/28 -Product Lot Number [id number] -Percent Used 100 -Lot number of Saline Used [id number] -Bleeding Controlled with Pressure -Treatment Response Procedure Tolerated Well -Debridement - Subq, 1st 20sq cm No -Apply Skin Sub - 1st 25 sq cm - Legs 1 -Epifix Mesh (per sq cm) 11 Pain Scale: 0-10 Numeric Is Patient Pain Free? Yes - Nurse 3 - General Ulcer D/C NN Start: 06/01/24 10:28 Freq: Status: Active Protocol: Activity Type Activity Date Activity User E-sign Co-sign Detail Recorded Client Recorded Date Recorded By Document 06/01/24 11:42 KW [facility] 06/01/24 11:43 KW 06/01/24 11:42 Wound Care Center Nurse 3 #3 LT LAT LE -Primary Dressing Covered/Secured with Dry Gauze & Roll Gauze, Secured with Tape Right -Tubular Bandage Single Layer -Size of Tubigrip Used Size E -Size E ($) 1 Left -Tubular Bandage Single Layer -Size of Tubigrip Used Size E -Size E ($) 1 Pain Scale: 0-10 Numeric Is Patient Pain Free? Yes - Visit Discharge Discharge Condition Stable Ambulatory Status Ambulatory Transportation Private Auto Medication Reconcilliation completed & No provided to patient/care provider Clinical Summary of Care Provided Yes Assessment/Plan Assessment/Plan (1) Non-pressure chronic ulcer of left calf with fat layer exposed: CODE(S): L97.222 - Non-pressure chronic ulcer of left calf with fat layer exposed (2) Non-pressure chronic ulcer of right calf with fat layer exposed: CODE(S): L97.212 - Non-pressure chronic ulcer of right calf with fat layer exposed (3) Venous insufficiency (chronic) (peripheral): CODE(S): I87.2 - Venous insufficiency (chronic) (peripheral) (4) Bilateral edema of lower extremity: CODE(S): R60.0 - Localized edema PLAN: Plan Patient seen and evaluated Pre-debridement: Left: 3.0cm x 1.4cm x 0.2cm Right lower extremity ulceration has healed Ulceration to the left lower extremity underwent debridement as noted in the clinical panel above. Post-debridement Ulceration to the Left lower extremity ulceration measures 3.1 cm x 1.5 cm x 0.2 cm. No signs of infection. EpiFix graft #2 applied to left lower extremity ulceration base and dressed with Adaptic touch and anchored with Steri-Strips. Dry sterile dressing applied to the lower extremity. Discussed not to get the left lower extremity wet and utilize cast bag when showering. Ulceration demonstrate reduction in size of versus the previous visit. He has been approved for EpiFix application for the left lower extremity. Will continue application Venous studies and LEAS were performed for further evaluation due to history of CABG and weakly palpable pulses of the left lower extremity. LEAS demonstrates triphasic PT and DP pulses bilateral. No evidence of arterial occlusive disease. Venous studies demonstrate right popliteal vein incompetence, left Sapho-femoral junction incompetent left lower extremity, right great saphenous vein incompetent below the knee, left great saphenous vein is absent in the thigh but patent and competent below the knee. Results of his vascular studies were discussed with him 05/11/24. Discussed adequate protein intake to aid in wound healing. Andre supplementation was recommended. Recommended continued elevation of the lower extremities at times of rest for aiding in edema control. Tubigrip compression was also applied today. Discussed signs and symptoms of infection. He was instructed that if he notices increasing redness about the ulcerative sites that moves up the leg, if purulent drainage emerges from the wound sites, increasing foul odor of the wound sites, or if he experiences fever greater than 101 degree accompanied by nausea, vomiting, chills that these are signs of a progressing infection and he should report to the ED for IV antibiotics and for further evaluation. He is understanding of this today. The following work up and care recommendations were made: Dressing: Ann and dry sterile dressing right lower extremity. Change daily. EpiFix left lower extremity, change outer dressing as needed. Wash: Soap and water right lower extremity; do not get left lower extremity wet and utilize cast bag when showering to keep dressing dry. Tissue growth optimization: Ann right lower extremity; EpiFix left lower extremity Offload: To ensure that he does not bump wound sites. Vascular: Palpable DP and PT pulses right lower extremity; weakly palpable DP and PT pulses left lower extremity. Venous studies and LEAS were ordered 04/27/24 for further evaluation, awaiting results. Edema: There is some nonpitting mild pedal edema and some edema about the ulcerative sites. Recommended continued elevation of lower extremities to aid in edema control. Tubigrip compression was also applied. Infection: No signs of infection currently. Pain: May take [id number] Tylenol extra strength for discomfort Host factors: Advanced age I answered all the patient's questions. To return to the wound healing center in 1 week or call sooner if the patient has any questions or concerns.
--- NOTE | 2024-06-02 09:53 | WC ---
PHOTO 06/01/24 RIGHT MED LEG
--- NOTE | 2024-06-02 09:54 | WC ---
PHOTO 06/01/24 LEFT LATERAL LE
[2024-06-08 08:13] VITALS: BP 128/68; PULSE 69; RESP 18; TEMP 36.6
--- NOTE | 2024-06-08 13:40 | PN.PCM_ITS ---
History of Present Illness Date of Service: 06/08/24 Chief Complaint: Left lower extremity ulceration History of Wound: Patient is a 78-year-old male with PMHx of CABG. He states that in middle of April 2024 he was in a darden in doing some things around the yard and she had when he backed up into the wood splitter and bumped his left lower extremity. States that he did end up having a scab that did form over this wound and he continued applying Bactroban ointment however the wound did continue to breakdown and split open. He did not seek treatment at this time until 2 weeks later when he did suffer a fall and did go to the ED on 04/25/2024 at [facility]. He was instructed to continue to follow-up with his PCP and was placed on Keflex and did complete oral antibiotic treatment however the wound continued to fail to progress in healing. He was then referred to the wound care center for continued aid in his ulcer healing. He states that he does continue to apply the Bactroban ointment and dress it nightly. States that he does not put dressings on it during the daytime and does leave it open to air. Denies N/V/F/chills. Denies further complaints. Subjective Subjective This is a 78-year-old male who presents to the wound care center today for follow-up of bilateral lower extremity ulcerations. States that his still assisting with dressing changes daily. He has left graft in place to the left le g and changing outer dressings as needed. States he is seeing good improvement in the ulceration. Denies constitutional symptoms. Denies further complaints. Objective Data Objective Data Vital Signs: Vital Signs Temp Pulse Resp BP O2 Del Method 97.9 F 69 18 128/68 H Room Air 06/08/24 08:13 06/08/24 08:13 06/08/24 08:13 06/08/24 08:13 06/01/24 10:29 Oxygen Delivery Method Room Air Physical Exam Const alert, oriented x3 and no apparent distress General Appearance: cooperative HEENT normocephalic Eyes General Eye: normal appearance of both eyes Neck General: normal visual inspection Lymph Lymphatic: no lymphadenopathy noted and no lymphedema noted Resp normal respiratory effort Cardio regular rate and regular rhythm Extremity normal capillary refill, no joint enlargement, no calf tenderness and no pedal edema Extremity Narrative: Vascular: DP and PT pulses are weakly palpable to the left lower extremity and are palpable to the right lower extremity. CFT is less than 4 seconds to the right lower extremity but less than 5 seconds to the left lower extremity. Normal temperature gradient bilateral. Hair growth is absent to the digits bilateral. Neurologic: Light sensation intact. Gross sensation intact. Epicritic sensation intact. Motor sensation intact. No focal deficits are noted. Musculoskeletal: Muscle strength 5 of 5 age-appropriate. He does have decreased range of motion of the ankle joint in dorsiflexion with the knee extended without pain or crepitus bilateral. Decreased range of motion of the first metatarsophalangeal joint in dorsiflexion with foot loaded and unloaded without pain or crepitus. Dermatologic: Skin appears well-hydrated. There are some varicosities noted to the lower extremities. Superficial ulceration to the anterior medial right lower extremity remains healed. No signs of infection. There is an ulceration noted to the lateral aspect of the left lower extremity with mixed fibrogranular layer. No signs of infection. Skin no rashes or lesions noted, skin turgor normal and no jaundice Neuro moves all extremities Debridement Note Debridement Note Wound debrided: Left lateral leg Laterality: Left Wound Grade/Stage: Tate stage I Type of Debridement: Excisional debridement Anesthesia Used: 5% Lidocaine Gel Depth: Down to and including healthy tissue and in the subcutaneous layer Percentage of wound debrided: 100 Instrument Used: 5mm curette Tissue Removed: Fibrous, devitalized subcutaneous, biofilm, slough Severity: Fat Layer Exposed Amount of bleeding with debridement: Mild Bleeding Controlled with: Compression and gauze Patient tolerated procedure: Patient tolerated procedure well Post-Debridement Measurements and Additional Note: Post-Debridement Measurements/Treatment - Nurse 1 - General Ulcer Assessment Start: 06/01/24 10:28 Freq: Status: Active Protocol: [email or web address] Activity Type Activity Date Activity User E-sign Co-sign Detail Recorded Client Recorded Date Recorded By Document 06/01/24 10:29 KW [facility] 06/01/24 10:43 KW Document 06/08/24 08:13 DL [email or web address] 06/08/24 08:19 DL 06/01/24 06/08/24 10:29 08:13 - Today's Visit Information Type of service Follow-up Visit Follow-up Visit (Physician/COMMERCIAL SPECIALIST (Physician/COMMERCIAL SPECIALIST ) ) Arrival Mode Ambulatory Ambulatory Transfer Assistance None Patient Identification Verified (Name & Yes Yes ) Patient Requires Transmission-Based No Precautions Vital Signs Temperature (97.8 F-99.1 F) 96.3 F L 97.9 F Temperature Source Temporal Temporal Pulse Rate (60-100) 64 69 Pulse Location Monitor Monitor Respiratory Rate (12-18) 18 18 Respiratory rate source Observation Observation Oxygen Delivery Method Room Air Blood Pressure (90/60-120/80) 125/74 H 128/68 H Blood Pressure Mean (mm Hg) 91 88 Source Monitor Monitor Position Semi-Fowlers Blood Pressure Location Left Arm History Since Last Visit- (Skip if this is Patient's initial visit) Have you changed medications since your No No last visit? Any new allergies or adverse reactions No No Had a fall/change in ADL's that may No No increase risk of falls Signs or symptoms of abuse and/or No No neglect since last visit Have you been in the hospital since your No No last visit? Has dressing in place as prescribed Yes Yes Has compression in place as prescribed Yes Yes Has offloadiing in place as prescribed N/A Yes Experienced any changes in pain level or No No management Left Footwear Regular Shoe Right Footwear Regular Shoe Pain Scale: 0-10 Numeric Is Patient Pain Free? Yes Yes WC - Nurse 1 - General Ulcer Measurement Start: 06/01/24 10:28 Freq: Status: Active Protocol: Activity Type Activity Date Activity User E-sign Co-sign Detail Recorded Client Recorded Date Recorded By Document 06/01/24 10:29 KW [facility] 06/01/24 10:43 KW Document 06/08/24 08:13 DL [email or web address] 06/08/24 08:19 DL 06/01/24 06/08/24 10:29 08:13 Wound Center Nurse 1 #2 RT MED LEG -Current Size (cm) - Length 0.1 -Current Size (cm) - Width 0.1 -Current Size (cm) - Depth 0 -Total Square Cm 0.01 -Date of Last Picture (Recall this 06/01/24 field) -Exudate Amt None Present -Texture (Yuly-wound Skin Appearance) Assessed -Moisture (Yuly-wound Skin Appearance) Assessed,Dry/ Scaly -Color (Yuly-wound Skin Appearance) Assessed -Temperature (Yuly-wound Skin No Abnormality Appearance) (Pt Warm) -Tenderness on Palpation (Yuly-wound No Skin Appearance) -Wound Comment(s) APPEARS TO BE HEALED #3 LT LAT LE -Current Size (cm) - Length 3 2.7 -Current Size (cm) - Width 1 1.3 -Current Size (cm) - Depth 0.3 0.2 -Total Square Cm 3 3.51 -Date of Last Picture (Recall this 06/01/24 field) -Photo Taken Yes -Epithelialization Small 1-33% -Exudate Amt Medium Small -Exudate Type Serosanguineous -Wound Margin Distinct, Distinct, Outline Outline Attached Attached -Granulation Amt Large (67-100%) Small (1-33%) -Granulation Quality [place] -Necrosis Amt Small (1-33%) Large (67-100%) -Necrotic Tissue Type Adherent Slough Adherent Slough -Structure Exposed N/A -Texture (Yuly-wound Skin Appearance) Assessed Scarring -Moisture (Yuly-wound Skin Appearance) Assessed No Abnormality -Color (Yuly-wound Skin Appearance) Assessed Hemosiderin Staining -Temperature (Yuly-wound Skin No Abnormality No Abnormality Appearance) (Pt Warm) (Pt Warm) -Tenderness on Palpation (Yuly-wound No No Skin Appearance) -Ulcer Cleansing Soap and Water Soap and Water -Foul Odor after Cleansing No No -Anesthetic Used 5% Lidocaine 5% Lidocaine Gel Gel Right Calf (cm) 35.5 35 Right Ankle (cm) 22.5 Left Calf (cm) 35 34 Left Ankle (cm) 22.2 WC - Nurse 2 - General Ulcer CM Notes Start: 06/01/24 10:28 Freq: Status: Active Protocol: Activity Type Activity Date Activity User E-sign Co-sign Detail Recorded Client Recorded Date Recorded By Document 06/01/24 11:26 [facility] [email or web address] 06/01/24 11:35 BM Document 06/08/24 08:58 JF 000 06/08/24 09:00 JF 06/01/24 06/08/24 11:26 08:58 Wound Center Nurse 2 #2 RT MED LEG -Post Debridement (cm) - Length 0 -Post Debridement (cm) - Width 0 -Post Debridement (cm) - Depth 0 -Total Square (Post) (cm) 0 -Area of Debridement (cm) - Length 0 -Area of Debridement (cm) - Width 0 -Total Square (Area) (cm) 0 -Wound/Ulcer Outcome Healed- Epithelialized #3 LT LAT LE -Time 11:27 08:58 -Correct Patient Yes Yes -Correct Side, Site, Position Yes Yes -Correct Procedure Yes Yes -Procedure Performed Yes Yes -Type of Procedure Debridement Debridement -Clinical Debridement Subcutaneous Subcutaneous -Tissue Removed Subcutaneous Subcutaneous -Post Debridement (cm) - Length 3.1 3.0 -Post Debridement (cm) - Width 1.5 1.4 -Post Debridement (cm) - Depth 0.1 0.1 -Total Square (Post) (cm) 4.65 4.20 -Area of Debridement (cm) - Length 3.1 3.0 -Area of Debridement (cm) - Width 1.5 1.4 -Total Square (Area) (cm) 4.65 4.20 -Tunneling No No -Undermining/Tunneling No No -Circular Undermining No No -Wound/Ulcer Outcome Not Healed Not Healed -Ulcer Cleansing Rinsed/ Rinsed/ Irrigated with Irrigated with Saline Saline -Foul Odor after Cleansing No No -Bioengineered Tissue No Yes -Type of Bioengineered Tissue Epifix Mesh Epifix -Expiration Date 12/02/28 12/30/28 -Product Lot Number [id number] -Percent Used 100 100 -Lot number of Saline Used [id number] -Bleeding Controlled with Pressure Pressure -Treatment Response Procedure Procedure Tolerated Well Tolerated Well -Debridement - Subq, 1st 20sq cm No No -Apply Skin Sub - 1st 25 sq cm - Legs 1 1 -Epifix (per sq cm) 4 -Epifix Mesh (per sq cm) 11 Pain Scale: 0-10 Numeric Is Patient Pain Free? Yes Yes - Nurse 3 - General Ulcer D/C NN Start: 06/01/24 10:28 Freq: Status: Active Protocol: Activity Type Activity Date Activity User E-sign Co-sign Detail Recorded Client Recorded Date Recorded By Document 06/01/24 11:42 KW f 06/01/24 11:43 KW Document 06/08/24 09:07 DL [email or web address] 06/08/24 09:07 DL 06/01/24 06/08/24 11:42 09:07 Wound Care Center Nurse 3 #3 LT LAT LE -Foul Odor after Cleansing No -Primary Dressing Applied Mepilex Border -Other Dressing epifix -Primary Dressing Covered/Secured with Dry Gauze & Roll Gauze, Secured with Tape -Other Covering tubigrip -Mepilex Border 1 Right -Tubular Bandage Single Layer -Size of Tubigrip Used Size E -Size E ($) 1 Left -Tubular Bandage Single Layer -Size of Tubigrip Used Size E -Size E ($) 1 Treatment Response Procedure Tolerated Well Pain Scale: 0-10 Numeric Is Patient Pain Free? Yes Yes WC - Visit Discharge Discharge Condition Stable Stable Ambulatory Status Ambulatory Ambulatory Transportation Private Auto Private Auto Medication Reconcilliation completed & No provided to patient/care provider Clinical Summary of Care Provided Yes Assessment/Plan Assessment/Plan (1) Non-pressure chronic ulcer of left calf with fat layer exposed: CODE(S): L97.222 - Non-pressure chronic ulcer of left calf with fat layer exposed (2) Non-pressure chronic ulcer of right calf with fat layer exposed: CODE(S): L97.212 - Non-pressure chronic ulcer of right calf with fat layer exposed (3) Venous insufficiency (chronic) (peripheral): CODE(S): I87.2 - Venous insufficiency (chronic) (peripheral) (4) Bilateral edema of lower extremity: CODE(S): R60.0 - Localized edema PLAN: Plan Patient seen and evaluated Pre-debridement: Left: 2.9cm x 1.3cm x 0.2cm Right lower extremity ulceration has healed Ulceration to the left lower extremity underwent debridement as noted in the clinical panel above. Post-debridement Ulceration to the Left lower extremity ulceration measures 3.0 cm x 1.4 cm x 0.2 cm. No signs of infection. EpiFix graft #3 applied to left lower extremity ulceration base and dressed with Adaptic touch and anchored with Steri-Strips. Dry sterile dressing applied to the lower extremity. Discussed not to get the left lower extremity wet and utilize cast bag when showering. Ulceration demonstrate reduction in size of versus the previous visit. He has been approved for EpiFix application for the left lower extremity. Will continue application Venous studies and LEAS were performed for further evaluation due to history of CABG and weakly palpable pulses of the left lower extremity. LEAS demonstrates triphasic PT and DP pulses bilateral. No evidence of arterial occlusive disease. Venous studies demonstrate right popliteal vein incompetence, left Sapho-femoral junction incompetent left lower extremity, right great saphenous vein incompetent below the knee, left great saphenous vein is absent in the thigh but patent and competent below the knee. Results of his vascular studies were discussed with him 05/11/24. Discussed adequate protein intake to aid in wound healing. Andre supplementation was recommended. Recommended continued elevation of the lower extremities at times of rest for aiding in edema control. Tubigrip compression was also applied today. Discussed signs and symptoms of infection. He was instructed that if he notices increasing redness about the ulcerative sites that moves up the leg, if purulent drainage emerges from the wound sites, increasing foul odor of the wound sites, or if he experiences fever greater than 101 degree accompanied by nausea, vomiting, chills that these are signs of a progressing infection and he should report to the ED for IV antibiotics and for further evaluation. He is understanding of this today. The following work up and care recommendations were made: Dressing: EpiFix left lower extremity, change outer dressing as needed. Wash: Soap and water right lower extremity; do not get left lower extremity wet and utilize cast bag when showering to keep dressing dry. Tissue growth optimization: EpiFix left lower extremity Offload: To ensure that he does not bump wound sites. Vascular: Palpable DP and PT pulses right lower extremity; weakly palpable DP and PT pulses left lower extremity. Venous studies and LEAS were ordered 04/27/24 for further evaluation, awaiting results. Edema: There is some nonpitting mild pedal edema and some edema about the ulcerative sites. Recommended continued elevation of lower extremities to aid in edema control. Tubigrip compression was also applied. Infection: No signs of infection currently. Pain: May take [id number] Tylenol extra strength for discomfort Host factors: Advanced age I answered all the patient's questions. To return to the wound healing center in 2 weeks or call sooner if the patient has any questions or concerns.
[2024-06-22 08:10] VITALS: BP 145/77; PULSE 60; RESP 18; TEMP 35.9
--- NOTE | 2024-06-22 08:46 | PN.PCM_ITS ---
History of Present Illness Chief Complaint: Left lower extremity ulceration History of Wound: Patient is a 78-year-old male with PMHx of CABG. He states that in middle of April 2024 he was in a darden in doing some things around the yard and she had when he backed up into the wood splitter and bumped his left lower extremity. States that he did end up having a scab that did form over this wound and he continued applying Bactroban ointment however the wound did continue to breakdown and split open. He did not seek treatment at this time until 2 weeks later when he did suffer a fall and did go to the ED on 04/25/2024 at [facility]. He was instructed to continue to follow-up with his PCP and was placed on Keflex and did complete oral antibiotic treatment however the wound continued to fail to progress in healing. He was then referred to the wound care center for continued aid in his ulcer healing. He states that he does continue to apply the Bactroban ointment and dress it nightly. States that he does not put dressings on it during the daytime and does leave it open to air. Denies N/V/F/chills. Denies further complaints. Subjective Subjective This is a 78-year-old male who presents to the wound care center today for follow-up of Left lower extremity ulceration. He has left graft in place to the left leg and changing outer dressings as needed. States he is seeing good improvement in the ulceration with continued decrease in size. Denies constitutional symptoms. Denies further complaints. Objective Data Objective Data Vital Signs: Vital Signs Temp Pulse Resp BP O2 Del Method 96.7 F L 60 18 145/77 H Room Air 06/22/24 08:10 06/22/24 08:10 06/22/24 08:10 06/22/24 08:10 06/01/24 10:29 Oxygen Delivery Method Room Air Physical Exam Const alert, oriented x3 and no apparent distress General Appearance: cooperative HEENT normocephalic Eyes General Eye: normal appearance of both eyes Neck General: normal visual inspection Lymph Lymphatic: no lymphadenopathy noted and no lymphedema noted Resp normal respiratory effort Cardio regular rate and regular rhythm Extremity normal capillary refill, no joint enlargement, no calf tenderness and no pedal edema Extremity Narrative: Vascular: DP and PT pulses are weakly palpable to the left lower extremity and are palpable to the right lower extremity. CFT is less than 4 seconds to the right lower extremity but less than 5 seconds to the left lower extremity. Normal temperature gradient bilateral. Hair growth is absent to the digits bilateral. Neurologic: Light sensation intact. Gross sensation intact. Epicritic sensat ion intact. Motor sensation intact. No focal deficits are noted. Musculoskeletal: Muscle strength 5 of 5 age-appropriate. He does have decreased range of motion of the ankle joint in dorsiflexion with the knee extended without pain or crepitus bilateral. Decreased range of motion of the first metatarsophalangeal joint in dorsiflexion with foot loaded and unloaded without pain or crepitus. Dermatologic: Skin appears well-hydrated. There are some varicosities noted to the lower extremities. Superficial ulceration to the anterior medial right lower extremity remains healed. No signs of infection. There is an ulceration noted to the lateral aspect of the left lower extremity with mixed fibrogranular layer. No signs of infection. Skin no rashes or lesions noted, skin turgor normal and no jaundice Neuro moves all extremities Debridement Note Debridement Note Wound debrided: Left lower extremity Laterality: Left Wound Grade/Stage: Tate stage I Type of Debridement: Excisional debridement Anesthesia Used: 5% Lidocaine Gel Depth: Down to and including healthy tissue and in the subcutaneous layer Percentage of wound debrided: 100 Instrument Used: 3mm curette Tissue Removed: Fibrous, devitalized subcutaneous, biofilm, slough Severity: Fat Layer Exposed Amount of bleeding with debridement: Mild Bleeding Controlled with: Compression and gauze Patient tolerated procedure: Patient tolerated procedure well Post-Debridement Measurements and Additional Note: Post-Debridement Measurements/Treatment - Nurse 1 - General Ulcer Assessment Start: 06/01/24 10:28 Freq: Status: Active Protocol: [email or web address] Activity Type Activity Date Activity User E-sign Co-sign Detail Recorded Client Recorded Date Recorded By Document 06/01/24 10:29 KW [facility] 06/01/24 10:43 KW Document 06/08/24 08:13 DL [email or web address] 06/08/24 08:19 DL Document 06/22/24 08:10 TOAN [id number] 06/22/24 08:17 TOAN 06/01/24 06/08/24 06/22/24 10:29 08:13 08:10 - Today's Visit Information Type of service Follow-up Visit Follow-up Visit (Physician/BUSINESS OPERATIONS SPECIALIST (Physician/BUSINESS OPERATIONS SPECIALIST ) ) Arrival Mode Ambulatory Ambulatory Ambulatory Transfer Assistance None Patient Identification Verified (Name & Yes Yes Yes ) Patient Requires Transmission-Based No No Precautions Vital Signs Temperature (97.8 F-99.1 F) 96.3 F L 97.9 F 96.7 F L Temperature Source Temporal Temporal Temporal Pulse Rate (60-100) 64 69 60 Pulse Location Monitor Monitor Monitor Respiratory Rate (12-18) 18 18 18 Respiratory rate source Observation Observation Observation Oxygen Delivery Method Room Air Blood Pressure (90/60-120/80) 125/74 H 128/68 H 145/77 H Blood Pressure Mean (mm Hg) 91 88 99 Source Monitor Monitor Monitor Position Semi-Fowlers Semi-Fowlers Blood Pressure Location Left Arm Left Arm History Since Last Visit- (Skip if this is Patient's initial visit) Have you changed medications since your No No No last visit? Any new allergies or adverse reactions No No No Had a fall/change in ADL's that may No No No increase risk of falls Signs or symptoms of abuse and/or No No No neglect since last visit Have you been in the hospital since your No No No last visit? Has dressing in place as prescribed Yes Yes Yes Has compression in place as prescribed Yes Yes Yes Has offloadiing in place as prescribed N/A Yes N/A Experienced any changes in pain level or No No No management Left Footwear Regular Shoe Regular Shoe Right Footwear Regular Shoe Regular Shoe Pain Scale: 0-10 Numeric Is Patient Pain Free? Yes Yes Yes WC - Nurse 1 - General Ulcer Measurement Start: 06/01/24 10:28 Freq: Status: Active Protocol: Activity Type Activity Date Activity User E-sign Co-sign Detail Recorded Client Recorded Date Recorded By Document 06/01/24 10:29 KW dhf 06/01/24 10:43 KW Document 06/08/24 08:13 DL [email or web address] 06/08/24 08:19 DL Document 06/22/24 08:10 TOAN [id number] 06/22/24 08:17 JF 06/01/24 06/08/24 06/22/24 10:29 08:13 08:10 Wound Center Nurse 1 #2 RT MED LEG -Current Size (cm) - Length 0.1 -Current Size (cm) - Width 0.1 -Current Size (cm) - Depth 0 -Total Square Cm 0.01 -Date of Last Picture (Recall this 06/01/24 field) -Exudate Amt None Present -Texture (Yuly-wound Skin Appearance) Assessed -Moisture (Yuly-wound Skin Appearance) Assessed,Dry/ Scaly -Color (Yuly-wound Skin Appearance) Assessed -Temperature (Yuly-wound Skin No Abnormality Appearance) (Pt Warm) -Tenderness on Palpation (Yuly-wound No Skin Appearance) -Wound Comment(s) APPEARS TO BE HEALED #3 LT LAT LE -Combined with other wound No -Current Size (cm) - Length 3 2.7 1.9 -Current Size (cm) - Width 1 1.3 0.9 -Current Size (cm) - Depth 0.3 0.2 0.1 -Total Square Cm 3 3.51 1.71 -Date of Last Picture (Recall this 06/01/24 field) -Photo Taken Yes Yes -Epithelialization Small 1-33% Medium 34-66% -Tunneling No -Undermining/Tunneling No -Circular Undermining No -Exudate Amt Medium Small Small -Exudate Type Serosanguineous Serosanguineous -Wound Margin Distinct, Distinct, Fibrotic Scar, Outline Outline Thickened Scar Attached Attached -Granulation Amt Large (67-100%) Small (1-33%) None Present (0 %) -Granulation Quality Red [place] -Slough/Fibrin Yes -Necrosis Amt Small (1-33%) Large (67-100%) Small (1-33%) -Necrotic Tissue Type Adherent Slough Adherent Slough Adherent Slough -Structure Exposed N/A N/A -Texture (Yuly-wound Skin Appearance) Assessed Scarring Assessed, Scarring -Moisture (Yuly-wound Skin Appearance) Assessed No Abnormality Weeping -Color (Yuly-wound Skin Appearance) Assessed Hemosiderin Assessed Staining -Temperature (Yuly-wound Skin No Abnormality No Abnormality No Abnormality Appearance) (Pt Warm) (Pt Warm) (Pt Warm) -Tenderness on Palpation (Yuly-wound No No No Skin Appearance) -Ulcer Cleansing Soap and Water Soap and Water Wound Cleanser -Foul Odor after Cleansing No No No -Anesthetic Used 5% Lidocaine 5% Lidocaine 5% Lidocaine Gel Gel Gel Lower Limb Edema Present Yes Right Calf (cm) 35.5 35 Right Ankle (cm) 22.5 Left Calf (cm) 35 34 35 Left Ankle (cm) 22.2 22.4 WC - Nurse 2 - General Ulcer CM Notes Start: 06/01/24 10:28 Freq: Status: Active Protocol: Activity Type Activity Date Activity User E-sign Co-sign Detail Recorded Client Recorded Date Recorded By Document 06/01/24 11:26 [facility] [email or web address] 06/01/24 11:35 BMF Document 06/08/24 08:58 JF 000 06/08/24 09:00 JF Document 06/22/24 08:39 BMF [id number] 06/22/24 08:46 BMF 06/01/24 06/08/24 06/22/24 11:26 08:58 08:39 Wound Center Nurse 2 #2 RT MED LEG -Post Debridement (cm) - Length 0 -Post Debridement (cm) - Width 0 -Post Debridement (cm) - Depth 0 -Total Square (Post) (cm) 0 -Area of Debridement (cm) - Length 0 -Area of Debridement (cm) - Width 0 -Total Square (Area) (cm) 0 -Wound/Ulcer Outcome Healed- Epithelialized #3 LT LAT LE -Time 11:27 08:58 08:39 -Correct Patient Yes Yes Yes -Correct Side, Site, Position Yes Yes Yes -Correct Procedure Yes Yes Yes -Procedure Performed Yes Yes Yes -Type of Procedure Debridement Debridement Debridement -Clinical Debridement Subcutaneous Subcutaneous Subcutaneous -Tissue Removed Subcutaneous Subcutaneous Subcutaneous -Post Debridement (cm) - Length 3.1 3.0 1.9 -Post Debridement (cm) - Width 1.5 1.4 0.8 -Post Debridement (cm) - Depth 0.1 0.1 0.2 -Total Square (Post) (cm) 4.65 4.20 1.52 -Area of Debridement (cm) - Length 3.1 3.0 1.9 -Area of Debridement (cm) - Width 1.5 1.4 0.8 -Total Square (Area) (cm) 4.65 4.20 1.52 -Tunneling No No No -Undermining/Tunneling No No No -Circular Undermining No No No -Wound/Ulcer Outcome Not Healed Not Healed Not Healed -Ulcer Cleansing Rinsed/ Rinsed/ Rinsed/ Irrigated with Irrigated with Irrigated with Saline Saline Saline -Foul Odor after Cleansing No No No -Bioengineered Tissue No Yes Yes -Type of Bioengineered Tissue Epifix Mesh Epifix Epifix 18mm Disc -Expiration Date 12/02/28 12/30/28 12/02/28 -Product Lot Number [id number] -Percent Used 100 100 100 -Lot number of Saline Used [id number] -Bleeding Controlled with Pressure Pressure Pressure -Treatment Response Procedure Procedure Procedure Tolerated Well Tolerated Well Tolerated Well -Debridement - Subq, 1st 20sq cm No No No -Apply Skin Sub - 1st 25 sq cm - Legs 1 1 1 -Epifix (per sq cm) 4 -Epifix 18mm Disc 3 -Epifix Mesh (per sq cm) 11 Pain Scale: 0-10 Numeric Is Patient Pain Free? Yes Yes Yes - Nurse 3 - General Ulcer D/C NN Start: 06/01/24 10:28 Freq: Status: Active Protocol: Activity Type Activity Date Activity User E-sign Co-sign Detail Recorded Client Recorded Date Recorded By Document 06/01/24 11:42 KW [facility] 06/01/24 11:43 KW Document 06/08/24 09:07 DL [email or web address] 06/08/24 09:07 DL 06/01/24 06/08/24 11:42 09:07 Wound Care Center Nurse 3 #3 LT LAT LE -Foul Odor after Cleansing No -Primary Dressing Applied Mepilex Border -Other Dressing epifix -Primary Dressing Covered/Secured with Dry Gauze & Roll Gauze, Secured with Tape -Other Covering tubigrip -Mepilex Border 1 Right -Tubular Bandage Single Layer -Size of Tubigrip Used Size E -Size E ($) 1 Left -Tubular Bandage Single Layer -Size of Tubigrip Used Size E -Size E ($) 1 Treatment Response Procedure Tolerated Well Pain Scale: 0-10 Numeric Is Patient Pain Free? Yes Yes - Visit Discharge Discharge Condition Stable Stable Ambulatory Status Ambulatory Ambulatory Transportation Private Auto Private Auto Medication Reconcilliation completed & No provided to patient/care provider Clinical Summary of Care Provided Yes Assessment/Plan Assessment/Plan (1) Non-pressure chronic ulcer of left calf with fat layer exposed: CODE(S): L97.222 - Non-pressure chronic ulcer of left calf with fat layer exposed (2) Non-pressure chronic ulcer of right calf with fat layer exposed: CODE(S): L97.212 - Non-pressure chronic ulcer of right calf with fat layer exposed (3) Venous insufficiency (chronic) (peripheral): CODE(S): I87.2 - Venous insufficiency (chronic) (peripheral) (4) Bilateral edema of lower extremity: CODE(S): R60.0 - Localized edema PLAN: Plan Patient seen and evaluated Pre-debridement: Left: 1.8cm x 0.7cm x 0.2cm Right lower extremity ulceration has healed Ulceration to the left lower extremity underwent debridement as noted in the clinical panel above. Post-debridement Ulceration to the Left lower extremity ulceration measures 1.9 cm x 0.8 cm x 0.2 cm. No signs of infection. EpiFix graft #4 applied to left lower extremity ulceration base and dressed with Adaptic touch and anchored with Steri-Strips. Dry sterile dressing applied to the lower extremity. Discussed not to get the left lower extremity wet and utilize cast bag when showering. Ulceration demonstrate continued reduction in size of versus the previous visit. He has been approved for EpiFix application for the left lower extremity. Will continue application Venous studies and LEAS were performed for further evaluation due to history of CABG and weakly palpable pulses of the left lower extremity. LEAS demonstrates triphasic PT and DP pulses bilateral. No evidence of arterial occlusive disease. Venous studies demonstrate right popliteal vein incompetence, left Sapho-femoral junction incompetent left lower extremity, right great saphenous vein incompetent below the knee, left great saphenous vein is absent in the thigh but patent and competent below the knee. Results of his vascular studies were discussed with him 05/11/24. Discussed adequate protein intake to aid in wound healing. Andre supplementat ion was recommended. Recommended continued elevation of the lower extremities at times of rest for aiding in edema control. Tubigrip compression was also applied today. Discussed signs and symptoms of infection. He was instructed that if he notices increasing redness about the ulcerative sites that moves up the leg, if purulent drainage emerges from the wound sites, increasing foul odor of the wound sites, or if he experiences fever greater than 101 degree accompanied by nausea, vomiting, chills that these are signs of a progressing infection and he should report to the ED for IV antibiotics and for further evaluation. He is understanding of this today. The following work up and care recommendations were made: Dressing: EpiFix left lower extremity, change outer dressing as needed. Wash: Soap and water right lower extremity; do not get left lower extremity wet and utilize cast bag when showering to keep dressing dry. Tissue growth optimization: EpiFix left lower extremity Offload: To ensure that he does not bump wound sites. Vascular: Palpable DP and PT pulses right lower extremity; weakly palpable DP and PT pulses left lower extremity. Venous studies and LEAS were ordered 04/27/24 for further evaluation, awaiting results. Edema: There is some nonpitting mild pedal edema and some edema about the ulcerative sites. Recommended continued elevation of lower extremities to aid in edema control. Tubigrip compression was also applied. Infection: No signs of infection currently. Pain: May take [id number] Tylenol extra strength for discomfort Host factors: Advanced age I answered all the patient's questions. To return to the wound healing center in 1 week or call sooner if the patient has any questions or concerns.
--- NOTE | 2024-06-22 13:50 | WC ---
PHOTO 06/22/24 LEFT LATERAL LEG
[2024-06-29 08:06] VITALS: BP 132/72; PULSE 53; RESP 18; TEMP 36.4
--- NOTE | 2024-06-29 08:21 | PCM.WC.PN ---
History of Present Illness Date of Service: 06/29/24 Chief Complaint: Left lower extremity ulceration History of Wound: Patient is a 78-year-old male with PMHx of CABG. He states that in middle of April 2024 he was in a darden in doing some things around the yard and she had when he backed up into the wood splitter and bumped his left lower extremity. States that he did end up having a scab that did form over this wound and he continued applying Bactroban ointment however the wound did continue to breakdown and split open. He did not seek treatment at this time until 2 weeks later when he did suffer a fall and did go to the ED on 04/25/2024 at [facility]. He was instructed to continue to follow-up with his PCP and was placed on Keflex and did complete oral antibiotic treatment however the wound continued to fail to progress in healing. He was then referred to the wound care center for continued aid in his ulcer healing. He states that he does continue to apply the Bactroban ointment and dress it nightly. States that he does not put dressings on it during the daytime and does leave it open to air. Denies N/V/F/chills. Denies further complaints. Subjective Subjective This is a 78-year-old male who presents to the wound care center today for follow-up of Left lower extremity ulceration. He has left graft in place to the left leg and changing outer dressings as needed. He is accompanied by his today who does note a big improvement in the ulcer with continued reduction in size. States leg is less painful. Denies constitutional symptoms. Denies further complaints. Objective Data Objective Data Vital Signs: Vital Signs Temp Pulse Resp BP O2 Del Method 97.6 F L 53 L 18 132/72 H Room Air 06/29/24 08:06 06/29/24 08:06 06/29/24 08:06 06/29/24 08:06 06/01/24 10:29 Oxygen Delivery Method Room Air Physical Exam Const alert, oriented x3 and no apparent distress General Appearance: cooperative HEENT normocephalic Eyes General Eye: normal appearance of both eyes Neck General: normal visual inspection Lymph Lymphatic: no lymphadenopathy noted and no lymphedema noted Resp normal respiratory effort Cardio regular rate and regular rhythm Extremity normal capillary refill, no joint enlargement, no calf tenderness and no pedal edema Extremity Narrative: Vascular: DP and PT pulses are weakly palpable to the left lower extremity and are palpable to the right lower extremity. CFT is less than 4 seconds to the right lower extremity but less than 5 seconds to the left lower extremity. Normal temperature gradient bilateral. Hair growth is absent to the digits bilateral. Neurologic: Light sensation intact. Gross sensation intact. Epicritic sensation intact. Motor sensation intact. No focal deficits are noted. Musculoskeletal: Muscle strength 5 of 5 age-appropriate. He does have decreased range of motion of the ankle joint in dorsiflexion with the knee extended without pain or crepitus bilateral. Decreased range of motion of the first metatarsophalangeal joint in dorsiflexion with foot loaded and unloaded without pain or crepitus. Dermatologic: Skin appears well-hydrated. There are some varicosities noted to the lower extremities. Superficial ulceration to the anterior medial right lower extremity remains healed. No signs of infection. There is an ulceration noted to the lateral aspect of the left lower extremity with mixed fibrogranular layer. No signs of infection. Skin no rashes or lesions noted, skin turgor normal and no jaundice Neuro moves all extremities Debridement Note Debridement Note Wound debrided: Left lower extremity Laterality: Left Wound Grade/Stage: Tate stage I Type of Debridement: Excisional debridement Anesthesia Used: 5% Lidocaine Gel Depth: Down to and including healthy tissue and in the subcutaneous layer Percentage of wound debrided: 100 Instrument Used: 3mm curette Tissue Removed: Fibrous, devitalized subcutaneous, biofilm, slough Severity: Fat Layer Exposed Amount of bleeding with debridement: Mild Bleeding Controlled with: Compression and gauze Patient tolerated procedure: Patient tolerated procedure well Post-Debridement Measurements and Additional Note: Post-Debridement Measurements/Treatment - Nurse 1 - General Ulcer Assessment Start: 06/01/24 10:28 Freq: Status: Active Protocol: MARIANNE Activity Type Activity Date Activity User E-sign Co-sign Detail Recorded Client Recorded Date Recorded By Document 06/01/24 10:29 KW [facility] 06/01/24 10:43 KW Document 06/08/24 08:13 DL [email or web address] 06/08/24 08:19 DL Document 06/22/24 08:10 JF [id number] 06/22/24 08:17 JF Document 06/29/24 08:06 DL [id number] 06/29/24 08:13 DL 06/01/24 06/08/24 06/22/24 10:29 08:13 08:10 [facility] Today's Visit Information Type of service Follow-up Visit Follow-up Visit (Physician/MARKETING PROJECT COORDINATOR (Physician/MARKETING PROJECT COORDINATOR ) ) Arrival Mode Ambulatory Ambulatory Ambulatory Transfer Assistance None Patient Identification Verified (Name & Yes Yes Yes ) Patient Requires Transmission-Based No No Precautions Vital Signs Temperature (97.8 F-99.1 F) 96.3 F L 97.9 F 96.7 F L Temperature Source Temporal Temporal Temporal Pulse Rate (60-100) 64 69 60 Pulse Location Monitor Monitor Monitor Respiratory Rate (12-18) 18 18 18 Respiratory rate source Observation Observation Observation Oxygen Delivery Method Room Air Blood Pressure (90/60-120/80) 125/74 H 128/68 H 145/77 H Blood Pressure Mean (mm Hg) 91 88 99 Source Monitor Monitor Monitor Position Semi-Fowlers Semi-Fowlers Blood Pressure Location Left Arm Left Arm History Since Last Visit- (Skip if this is Patient's initial visit) Have you changed medications since your No No No last visit? Any new allergies or adverse reactions No No No Had a fall/change in ADL's that may No No No increase risk of falls Signs or symptoms of abuse and/or No No No neglect since last visit Have you been in the hospital since your No No No last visit? Has dressing in place as prescribed Yes Yes Yes Has compression in place as prescribed Yes Yes Yes Has offloadiing in place as prescribed N/A Yes N/A Experienced any changes in pain level or No No No management Left Footwear Regular Shoe Regular Shoe Right Footwear Regular Shoe Regular Shoe Pain Scale: 0-10 Numeric Is Patient Pain Free? Yes Yes Yes 06/29/24 08:06 [facility] Today's Visit Information Type of service Follow-up Visit (Physician/MARKETING PROJECT COORDINATOR ) Arrival Mode Ambulatory Transfer Assistance None Patient Identification Verified (Name & Yes ) Patient Requires Transmission-Based No Precautions Vital Signs Temperature (97.8 F-99.1 F) 97.6 F L Temperature Source Temporal Pulse Rate (60-100) 53 L Pulse Location Monitor Respiratory Rate (12-18) 18 Respiratory rate source Monitor Oxygen Delivery Method Blood Pressure (90/60-120/80) 132/72 H Blood Pressure Mean (mm Hg) 92 Source Monitor Position Blood Pressure Location History Since Last Visit- (Skip if this is Patient's initial visit) Have you changed medications since your No last visit? Any new allergies or adverse reactions No Had a fall/change in ADL's that may No increase risk of falls Signs or symptoms of abuse and/or No neglect since last visit Have you been in the hospital since your No last visit? Has dressing in place as prescribed Yes Has compression in place as prescribed Yes Has offloadiing in place as prescribed Yes Experienced any changes in pain level or No management Left Footwear Right Footwear Pain Scale: 0-10 Numeric Is Patient Pain Free? Yes WC - Nurse 1 - General Ulcer Measurement Start: 06/01/24 10:28 Freq: Status: Active Protocol: Activity Type Activity Date Activity User E-sign Co-sign Detail Recorded Client Recorded Date Recorded By Document 06/01/24 10:29 KW [facility] 06/01/24 10:43 KW Document 06/08/24 08:13 DL [email or web address] 06/08/24 08:19 DL Document 06/22/24 08:10 JF [id number] 06/22/24 08:17 JF Document 06/29/24 08:06 DL [id number] 06/29/24 08:13 DL 06/01/24 06/08/24 06/22/24 10:29 08:13 08:10 Wound Center Nurse 1 #2 RT MED LEG -Current Size (cm) - Length 0.1 -Current Size (cm) - Width 0.1 -Current Size (cm) - Depth 0 -Total Square Cm 0.01 -Date of Last Picture (Recall this 06/01/24 field) -Exudate Amt None Present -Texture (Yuly-wound Skin Appearance) Assessed -Moisture (Yuly-wound Skin Appearance) Assessed,Dry/ Scaly -Color (Yuly-wound Skin Appearance) Assessed -Temperature (Yuly-wound Skin No Abnormality Appearance) (Pt Warm) -Tenderness on Palpation (Yuly-wound No Skin Appearance) -Wound Comment(s) APPEARS TO BE HEALED #3 LT LAT LE -Combined with other wound No -Current Size (cm) - Length 3 2.7 1.9 -Current Size (cm) - Width 1 1.3 0.9 -Current Size (cm) - Depth 0.3 0.2 0.1 -Total Square Cm 3 3.51 1.71 -Date of Last Picture (Recall this 06/01/24 field) -Photo Taken Yes Yes -Epithelialization Small 1-33% Medium 34-66% -Tunneling No -Undermining/Tunneling No -Circular Undermining No -Exudate Amt Medium Small Small -Exudate Type Serosanguineous Serosanguineous -Wound Margin Distinct, Distinct, Fibrotic Scar, Outline Outline Thickened Scar Attached Attached -Granulation Amt Large (67-100%) Small (1-33%) None Present (0 %) -Granulation Quality [place] -Slough/Fibrin Yes -Necrosis Amt Small (1-33%) Large (67-100%) Small (1-33%) -Necrotic Tissue Type Adherent Slough Adherent Slough Adherent Slough -Structure Exposed N/A N/A -Texture (Yuly-wound Skin Appearance) Assessed Scarring Assessed, Scarring -Moisture (Yuly-wound Skin Appearance) Assessed No Abnormality Weeping -Color (Yuly-wound Skin Appearance) Assessed Hemosiderin Assessed Staining -Temperature (Yuly-wound Skin No Abnormality No Abnormality No Abnormality Appearance) (Pt Warm) (Pt Warm) (Pt Warm) -Tenderness on Palpation (Yuly-wound No No No Skin Appearance) -Ulcer Cleansing Soap and Water Soap and Water Wound Cleanser -Foul Odor after Cleansing No No No -Anesthetic Used 5% Lidocaine 5% Lidocaine 5% Lidocaine Gel Gel Gel Lower Limb Edema Present Yes Right Calf (cm) 35.5 35 Right Ankle (cm) 22.5 Left Calf (cm) 35 34 35 Left Ankle (cm) 22.2 22.4 06/29/24 08:06 Wound Center Nurse 1 #2 RT MED LEG -Current Size (cm) - Length -Current Size (cm) - Width -Current Size (cm) - Depth -Total Square Cm -Date of Last Picture (Recall this field) -Exudate Amt -Texture (Yuly-wound Skin Appearance) -Moisture (Yuly-wound Skin Appearance) -Color (Yuly-wound Skin Appearance) -Temperature (Yuly-wound Skin Appearance) -Tenderness on Palpation (Yuly-wound Skin Appearance) -Wound Comment(s) #3 LT LAT LE -Combined with other wound -Current Size (cm) - Length 1.3 -Current Size (cm) - Width 0.5 -Current Size (cm) - Depth 0.1 -Total Square Cm 0.65 -Date of Last Picture (Recall this field) -Photo Taken -Epithelialization -Tunneling -Undermining/Tunneling -Circular Undermining -Exudate Amt Small -Exudate Type Serosanguineous -Wound Margin Distinct, Outline Attached -Granulation Amt Large (67-100%) -Granulation Quality [place] -Slough/Fibrin -Necrosis Amt Small (1-33%) -Necrotic Tissue Type Adherent Slough -Structure Exposed N/A -Texture (Yuly-wound Skin Appearance) Scarring -Moisture (Yuly-wound Skin Appearance) No Abnormality -Color (Yuly-wound Skin Appearance) No Abnormality -Temperature (Yuly-wound Skin No Abnormality Appearance) (Pt Warm) -Tenderness on Palpation (Yuly-wound Skin Appearance) -Ulcer Cleansing Soap and Water -Foul Odor after Cleansing No -Anesthetic Used 5% Lidocaine Gel Lower Limb Edema Present Right Calf (cm) Right Ankle (cm) Left Calf (cm) 34 Left Ankle (cm) 22 WC - Nurse 2 - General Ulcer CM Notes Start: 06/01/24 10:28 Freq: Status: Active Protocol: Activity Type Activity Date Activity User E-sign Co-sign Detail Recorded Client Recorded Date Recorded By Document 06/01/24 11:26 [facility] [email or web address] 06/01/24 11:35 [facility] Document 06/08/24 08:58 [id number] 06/08/24 09:00 Document 06/22/24 08:39 [facility] [id number] 06/22/24 08:46 [facility] 06/01/24 06/08/24 06/22/24 11:26 08:58 08:39 Wound Center Nurse 2 #2 RT MED LEG -Post Debridement (cm) - Length 0 -Post Debridement (cm) - Width 0 -Post Debridement (cm) - Depth 0 -Total Square (Post) (cm) 0 -Area of Debridement (cm) - Length 0 -Area of Debridement (cm) - Width 0 -Total Square (Area) (cm) 0 -Wound/Ulcer Outcome Healed- Epithelialized #3 LT LAT LE -Time 11:27 08:58 08:39 -Correct Patient Yes Yes Yes -Correct Side, Site, Position Yes Yes Yes -Correct Procedure Yes Yes Yes -Procedure Performed Yes Yes Yes -Type of Procedure Debridement Debridement Debridement -Clinical Debridement Subcutaneous Subcutaneous Subcutaneous -Tissue Removed Subcutaneous Subcutaneous Subcutaneous -Post Debridement (cm) - Length 3.1 3.0 1.9 -Post Debridement (cm) - Width 1.5 1.4 0.8 -Post Debridement (cm) - Depth 0.1 0.1 0.2 -Total Square (Post) (cm) 4.65 4.20 1.52 -Area of Debridement (cm) - Length 3.1 3.0 1.9 -Area of Debridement (cm) - Width 1.5 1.4 0.8 -Total Square (Area) (cm) 4.65 4.20 1.52 -Tunneling No No No -Undermining/Tunneling No No No -Circular Undermining No No No -Wound/Ulcer Outcome Not Healed Not Healed Not Healed -Ulcer Cleansing Rinsed/ Rinsed/ Rinsed/ Irrigated with Irrigated with Irrigated with Saline Saline Saline -Foul Odor after Cleansing No No No -Bioengineered Tissue No Yes Yes -Type of Bioengineered Tissue Epifix Mesh Epifix Epifix 18mm Disc -Expiration Date 12/02/28 12/30/28 12/02/28 -Product Lot Number [id number] -Percent Used 100 100 100 -Lot number of Saline Used [id number] -Bleeding Controlled with Pressure Pressure Pressure -Treatment Response Procedure Procedure Procedure Tolerated Well Tolerated Well Tolerated Well -Debridement - Subq, 1st 20sq cm No No No -Apply Skin Sub - 1st 25 sq cm - Legs 1 1 1 -Epifix (per sq cm) 4 -Epifix 18mm Disc 3 -Epifix Mesh (per sq cm) 11 Pain Scale: 0-10 Numeric Is Patient Pain Free? Yes Yes Yes WC - Nurse 3 - General Ulcer D/C NN Start: 06/01/24 10:28 Freq: Status: Active Protocol: Activity Type Activity Date Activity User E-sign Co-sign Detail Recorded Client Recorded Date Recorded By Document 06/01/24 11:42 KW f 06/01/24 11:43 KW Document 06/08/24 09:07 DL [email or web address] 06/08/24 09:07 DL Document 06/22/24 08:47 [facility] [id number] 06/22/24 08:49 [facility] 06/01/24 06/08/24 06/22/24 11:42 09:07 08:47 Wound Care Center Nurse 3 #3 LT LAT LE -Foul Odor after Cleansing No -Primary Dressing Applied Mepilex Border Mepilex Border -Other Dressing epifix epifix -Primary Dressing Covered/Secured with Dry Gauze & Roll Gauze, Secured with Tape -Other Covering tubigrip -Mepilex Border 1 1 Right -Tubular Bandage Single Layer -Size of Tubigrip Used Size E -Size E ($) 1 Left -Tubular Bandage Single Layer -Size of Tubigrip Used Size E -Size E ($) 1 michael -Other reapplied pts own single layer size e tubis Treatment Response Procedure Procedure Tolerated Well Tolerated Well Pain Scale: 0-10 Numeric Is Patient Pain Free? Yes Yes Yes Teaching: Wound Center epifix application -Person Taught Patient -Teaching Method Discussion -Response to teaching Verbalize Understanding WC - Visit Discharge Discharge Condition Stable Stable Stable Ambulatory Status Ambulatory Ambulatory Ambulatory Transportation Private Auto Private Auto Private Auto Medication Reconcilliation completed & No provided to patient/care provider Clinical Summary of Care Provided Yes Assessment/Plan Assessment/Plan (1) Non-pressure chronic ulcer of left calf with fat layer exposed: CODE(S): L97.222 - Non-pressure chronic ulcer of left calf with fat layer exposed (2) Non-pressure chronic ulcer of right calf with fat layer exposed: CODE(S): L97.212 - Non-pressure chronic ulcer of right calf with fat layer exposed (3) Venous insufficiency (chronic) (peripheral): CODE(S): I87.2 - Venous insufficiency (chronic) (peripheral) (4) Bilateral edema of lower extremity: CODE(S): R60.0 - Localized edema PLAN: Plan Patient seen and evaluated Pre-debridement: Left: 1.7cm x 0.5cm x 0.2cm Right lower extremity ulceration remains healed Ulceration to the left lower extremity underwent debridement as noted in the clinical panel above. Post-debridement Ulceration to the Left lower extremity ulceration measures 1.8 cm x 0.6 cm x 0.1 cm. No signs of infection. EpiFix graft #5 applied to left lower extremity ulceration base and dressed with Adaptic touch and anchored with Steri-Strips. Dry sterile dressing applied to the lower extremity. Discussed not to get the left lower extremity wet and utilize cast bag when showering. Ulceration demonstrate continued reduction in size of versus the previous visit. He has been approved for EpiFix application for the left lower extremity. Will continue application Venous studies and LEAS were performed for further evaluation due to history of CABG and weakly palpable pulses of the left lower extremity. LEAS demonstrates triphasic PT and DP pulses bilateral. No evidence of arterial occlusive disease. Venous studies demonstrate right popliteal vein incompetence, left Sapho-femoral junction incompetent left lower extremity, right great saphenous vein incompetent below the knee, left great saphenous vein is absent in the thigh but patent and competent below the knee. Results of his vascular studies were discussed with him 05/11/24. Discussed adequate protein intake to aid in wound healing. Andre supplementation was recommended. Recommended continued elevation of the lower extremities at times of rest for aiding in edema control. Tubigrip compression was also applied today. Discussed signs and symptoms of infection. He was instructed that if he notices increasing redness about the ulcerative sites that moves up the leg, if purulent drainage emerges from the wound sites, increasing foul odor of the wound sites, or if he experiences fever greater than 101 degree accompanied by nausea, vomiting, chills that these are signs of a progressing infection and he should report to the ED for IV antibiotics and for further evaluation. He is understanding of this today. The following work up and care recommendations were made: Dressing: EpiFix left lower extremity, change outer dressing as needed. Wash: Soap and water right lower extremity; do not get left lower extremity wet and utilize cast bag when showering to keep dressing dry. Tissue growth optimization: EpiFix left lower extremity Offload: To ensure that he does not bump wound sites. Vascular: Palpable DP and PT pulses right lower extremity; weakly palpable DP and PT pulses left lower extremity. Venous studies and LEAS were ordered 04/27/24 for further evaluation, awaiting results. Edema: There is some nonpitting mild pedal edema and some edema about the ulcerative sites. Recommended continued elevation of lower extremities to aid in edema control. Tubigrip compression was also applied. Infection: No signs of infection currently. Pain: May take [id number] Tylenol extra strength for discomfort Host factors: Advanced age I answered all the patient's questions. To return to the wound healing center in 1 week or call sooner if the patient has any questions or concerns.
== END 2024-07-01 23:59 | disposition home or self-care (01) ==
LOC: WC 08:00
PROVIDERS: PCP Family Medicine; Referring Provider Family Medicine; Visit Provider Student in an Organized Health Care Education/Training Program
DX: L97.922 Non-pressure chronic ulcer of unspecified part of left lower leg with fat layer exposed (principal); L97.212 Non-pressure chronic ulcer of right calf with fat layer exposed; I87.2 Venous insufficiency (chronic) (peripheral); R60.0 Localized edema
CPT/HCPCS: 15271; Q4186

== ENCOUNTER → 2024-07-12 | Outpatient (CLI) | payer MEDICARE, SELFPAY | END | disposition home or self-care (01) | PROVIDERS: PCP Family Medicine; Visit Provider Family Medicine | DX: R19.7 Diarrhea, unspecified (principal) | CPT/HCPCS: 87177; 87209; 87493 ==

== ENCOUNTER 2024-07-27 08:00 | Outpatient (RCR) | payer MEDICARE, SELFPAY ==
[2024-07-02 00:49] VITALS: BP 146/73; PULSE 65; RESP 18; TEMP 36.2
[2024-07-06 08:08] VITALS: BP 121/68; PULSE 59; RESP 16; TEMP 35.4
--- NOTE | 2024-07-06 08:53 | PN.PCM_ITS ---
History of Present Illness Date of Service: 07/06/24 Chief Complaint: Left lower extremity ulceration History of Wound: Patient is a 78-year-old male with PMHx of CABG. He states that in middle of April 2024 he was in a darden in doing some things around the yard and she had when he backed up into the wood splitter and bumped his left lower extremity. States that he did end up having a scab that did form over this wound and he continued applying Bactroban ointment however the wound did continue to breakdown and split open. He did not seek treatment at this time until 2 weeks later when he did suffer a fall and did go to the ED on 04/25/2024 at [facility]. He was instructed to continue to follow-up with his PCP and was placed on Keflex and did complete oral antibiotic treatment however the wound continued to fail to progress in healing. He was then referred to the wound care center for continued aid in his ulcer healing. He states that he does continue to apply the Bactroban ointment and dress it nightly. States that he does not put dressings on it during the daytime and does leave it open to air. Denies N/V/F/chills. Denies further complaints. Subjective Subjective This is a 78-year-old male who presents to the wound care center today for follow-up of Left lower extremity ulceration. He has left graft in place to the left leg and changing outer dressings as needed. He states he is noticing alfonso nued reduction in size to the ulcer site. 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 Denies constitutional symptoms. Denies further complaints. Objective Data Objective Data Vital Signs: Vital Signs Temp Pulse Resp BP 95.7 F L 59 L 16 121/68 H 07/06/24 08:08 07/06/24 08:08 07/06/24 08:08 07/06/24 08:08 Physical Exam Const alert, oriented x3 and no apparent distress General Appearance: cooperative HEENT normocephalic Eyes General Eye: normal appearance of both eyes Neck General: normal visual inspection Lymph Lymphatic: no lymphadenopathy noted and no lymphedema noted Resp normal respiratory effort Cardio regular rate and regular rhythm Extremity normal capillary refill, no joint enlargement, no calf tenderness and no pedal edema Extremity Narrative: Vascular: DP and PT pulses are weakly palpable to the left lower extremity and are palpable to the right lower extremity. CFT is less than 4 seconds to the right lower extremity but less than 5 seconds to the left lower extremity. Normal temperature gradient bilateral. Hair growth is absent to the digits bilateral. Neurologic: Light sensation intact. Gross sensation intact. Epicritic sensation intact. Motor sensation intact. No focal deficits are noted. Musculoskeletal: Muscle strength 5 of 5 age-appropriate. He does have decreased range of motion of the ankle joint in dorsiflexion with the knee extended without pain or crepitus bilateral. Decreased range of motion of the first metatarsophalangeal joint in dorsiflexion with foot loaded and unloaded without pain or crepitus. Dermatologic: Skin appears well-hydrated. There are some varicosities noted to the lower extremities. There is an ulceration noted to the lateral aspect of the left lower extremity with mixed fibrogranular layer. No signs of infection. Skin no rashes or lesions noted, skin turgor normal and no jaundice Neuro moves all extremities Debridement Note Debridement Note Wound debrided: Left lower extremity Laterality: Left Wound Grade/Stage: Tate stage I Type of Debridement: Excisional debridement Anesthesia Used: 5% Lidocaine Gel Depth: Down to and including healthy tissue and in the subcutaneous layer Percentage of wound debrided: 100 Instrument Used: 5mm curette Tissue Removed: Fibrous, devitalized subcutaneous, biofilm, slough Severity: Fat Layer Exposed Amount of bleeding with debridement: Mild Bleeding Controlled with: Compression and gauze Patient tolerated procedure: Patient tolerated procedure well Post-Debridement Measurements and Additional Note: Post-Debridement Measurements/Treatment [facility] Nurse 1 - General Ulcer Assessment Start: 07/06/24 08:07 Freq: Status: Active Protocol: [email or web address] Activity Type Activity Date Activity User E-sign Co-sign Detail Recorded Client Recorded Date Recorded By Document 07/06/24 08:08 TOAN [id number] 07/06/24 08:09 TOAN 07/06/24 08:08 - Today's Visit Information Type of service Follow-up Visit (Physician/[employer]ERN[employer]SEPERSON ) Arrival Mode Ambulatory Patient Identification Verified (Name & Yes ) Patient Requires Transmission-Based No Precautions Vital Signs Temperature (97.8 F-99.1 F) 95.7 F L Temperature Source Temporal Pulse Rate (60-100) 59 L Pulse Location Monitor Respiratory Rate (12-18) 16 Respiratory rate source Observation Blood Pressure (90/60-120/80) 121/68 H Blood Pressure Mean (mm Hg) 85 Source Monitor Position Semi-Fowlers Blood Pressure Location Right Arm History Since Last Visit- (Skip if this is Patient's initial visit) Have you changed medications since your No last visit? Any new allergies or adverse reactions No Had a fall/change in ADL's that may No increase risk of falls Signs or symptoms of abuse and/or No neglect since last visit Have you been in the hospital since your No last visit? Has dressing in place as prescribed Yes Has compression in place as prescribed Yes Has offloadiing in place as prescribed N/A Experienced any changes in pain level or No management Left Footwear Regular Shoe Right Footwear Regular Shoe Pain Scale: 0-10 Numeric Is Patient Pain Free? Yes WC - Nurse 1 - General Ulcer Measurement Start: 07/06/24 08:07 Freq: Status: Active Protocol: Activity Type Activity Date Activity User E-sign Co-sign Detail Recorded Client Recorded Date Recorded By Document 07/06/24 08:08 TOAN [id number] 07/06/24 08:09 TOAN 07/06/24 08:08 Wound Center Nurse 1 #3 LT LAT LE -Combined with other wound No -Current Size (cm) - Length 0.1 -Current Size (cm) - Width 0.1 -Current Size (cm) - Depth 0.1 -Total Square Cm 0.01 -Photo Taken No -Epithelialization Large 67-100% -Tunneling No -Undermining/Tunneling No -Circular Undermining No -Exudate Amt None Present -Wound Margin Flat & Intact -Granulation Amt None Present (0 %) -Slough/Fibrin No -Necrosis Amt Small (1-33%) -Necrotic Tissue Type Adherent Slough -Structure Exposed N/A -Texture (Yuly-wound Skin Appearance) Assessed -Moisture (Yuly-wound Skin Appearance) Assessed,Dry/ Scaly -Color (Yuly-wound Skin Appearance) Assessed -Temperature (Yuly-wound Skin No Abnormality Appearance) (Pt Warm) -Tenderness on Palpation (Yuly-wound No Skin Appearance) -Ulcer Cleansing Wound Cleanser -Foul Odor after Cleansing No -Anesthetic Used 5% Lidocaine Gel Lower Limb Edema Present Yes Left Calf (cm) 35 Left Ankle (cm) 22 WC - Nurse 2 - General Ulcer CM Notes Start: 07/06/24 08:07 Freq: Status: Active Protocol: Activity Type Activity Date Activity User E-sign Co-sign Detail Recorded Client Recorded Date Recorded By Document 07/06/24 08:26 [facility] [id number] 07/06/24 08:32 [facility] 07/06/24 08:26 Wound Center Nurse 2 #3 LT LAT LE -Time 08:26 -Correct Patient Yes -Correct Side, Site, Position Yes -Correct Procedure Yes -Procedure Performed Yes -Type of Procedure Debridement -Clinical Debridement Subcutaneous -Tissue Removed Subcutaneous -Post Debridement (cm) - Length 1.1 -Post Debridement (cm) - Width 0.6 -Post Debridement (cm) - Depth 0.1 -Total Square (Post) (cm) 0.66 -Area of Debridement (cm) - Length 1.1 -Area of Debridement (cm) - Width 0.6 -Total Square (Area) (cm) 0.66 -Tunneling No -Undermining/Tunneling No -Circular Undermining No -Wound/Ulcer Outcome Not Healed -Ulcer Cleansing Rinsed/ Irrigated with Saline -Foul Odor after Cleansing No -Expiration Date 01/30/29 -Product Lot Number [id number] -Percent Used 100 -Lot number of Saline Used [id number] -Bleeding Controlled with Pressure -Treatment Response Procedure Tolerated Well -Debridement - Subq, 1st 20sq cm No -Apply Skin Sub - 1st 25 sq cm - Legs 1 -Epifix 18mm Disc 3 Pain Scale: 0-10 Numeric Is Patient Pain Free? Yes Assessment/Plan Assessment/Plan (1) Non-pressure chronic ulcer of left calf with fat layer exposed: CODE(S): L97.222 - Non-pressure chronic ulcer of left calf with fat layer exposed (2) Venous insufficiency (chronic) (peripheral): CODE(S): I87.2 - Venous insufficiency (chronic) (peripheral) (3) Bilateral edema of lower extremity: CODE(S): R60.0 - Localized edema PLAN: Plan Patient seen and evaluated Pre-debridement: Left: 1.0cm x 0.5cm x 0.1cm Ulceration to the left lower extremity underwent debridement as noted in the clinical panel above. Post-debridement Ulceration to the Left lower extremity ulceration measures 1.1 cm x 0.6 cm x 0.1 cm. No signs of infection. EpiFix graft #6 applied to left lower extremity ulceration base and dressed with Adaptic touch and anchored with Steri-Strips. Dry sterile dressing applied to the lower extremity. Discussed not to get the left lower extremity wet and utilize cast bag when showering. Ulceration demonstrates continued reduction in size versus the previous visit. He has been approved for EpiFix application for the left lower extremity. Will continue application Venous studies and LEAS were performed for further evaluation due to history of CABG and weakly palpable pulses of the left lower extremity. LEAS demonstrates triphasic PT and DP pulses bilateral. No evidence of arterial occlusive disease. Venous studies demonstrate right popliteal vein incompetence, left Sapho-femoral junction incompetent left lower extremity, right great saphenous vein incompetent below the knee, left great saphenous vein is absent in the thigh but patent and competent below the knee. Results of his vascular studies were discussed with him 05/11/24. Discussed adequate protein intake to aid in wound healing. Andre supplementation was recommended. Recommended continued elevation of the lower extremities at times of rest for aiding in edema control. Tubigrip compression was also applied today. Discussed signs and symptoms of infection. He was instructed that if he notices increasing redness about the ulcerative sites that moves up the leg, if purulent drainage emerges from the wound sites, increasing foul odor of the wound sites, or if he experiences fever greater than 101 degree accompanied by nausea, vomiting, chills that these are signs of a progressing infection and he should report to the ED for IV antibiotics and for further evaluation. He is understanding of this today. The following work up and care recommendations were made: Dressing: EpiFix left lower extremity, Adaptic touch, Steri-Strips. Change outer dressing as needed. Wash: Soap and water right lower extremity; do not get left lower extremity wet and utilize cast bag when showering to keep dressing dry. Tissue growth optimization: EpiFix left lower extremity Offload: To ensure that he does not bump wound sites. Vascular: Palpable DP and PT pulses right lower extremity; weakly palpable DP and PT pulses left lower extremity. Venous studies and LEAS were ordered 04/27/24 for further evaluation, awaiting results. Edema: There is some nonpitting mild pedal edema and some edema about the ulcerative sites. Recommended continued elevation of lower extremities to aid in edema control. Tubigrip compression was also applied. Infection: No signs of infection currently. Pain: May take [id number] Tylenol extra strength for discomfort Host factors: Advanced age I answered all the patient's questions. To return to the wound healing center in 2 weeks or call sooner if the patient has any questions or concerns.
[2024-07-20 08:06] VITALS: BP 132/74; PULSE 67; RESP 16; TEMP 36.3
--- NOTE | 2024-07-20 08:39 | PCM.WC.PN ---
History of Present Illness Date of Service: 07/20/24 Chief Complaint: Left lower extremity ulceration History of Wound: Patient is a 78-year-old male with PMHx of CABG. He states that in middle of April 2024 he was in a darden in doing some things around the yard and she had when he backed up into the wood splitter and bumped his left lower extremity. States that he did end up having a scab that did form over this wound and he continued applying Bactroban ointment however the wound did continue to breakdown and split open. He did not seek treatment at this time until 2 weeks later when he did suffer a fall and did go to the ED on 04/25/2024 at [facility]. He was instructed to continue to follow-up with his PCP and was placed on Keflex and did complete oral antibiotic treatment however the wound continued to fail to progress in healing. He was then referred to the wound care center for continued aid in his ulcer healing. He states that he does continue to apply the Bactroban ointment and dress it nightly. States that he does not put dressings on it during the daytime and does leave it open to air. Denies N/V/F/chills. Denies further complaints. Subjective Subjective This is a 78-year-old male who presents to the wound care center today for follow-up of Left lower extremity ulceration. Graft remains in place to the left leg and changing outer dressings as needed. States he believes it is nearly healed. Denies drainage. Denies constitutional symptoms. Denies further complaints. Objective Data Objective Data Vital Signs: Vital Signs Temp Pulse Resp BP 97.4 F L 67 16 132/74 H 07/20/24 08:06 07/20/24 08:06 07/20/24 08:06 07/20/24 08:06 Physical Exam Const alert, oriented x3 and no apparent distress General Appearance: cooperative HEENT normocephalic Eyes General Eye: normal appearance of both eyes Neck General: normal visual inspection Lymph Lymphatic: no lymphadenopathy noted and no lymphedema noted Resp normal respiratory effort Cardio regular rate and regular rhythm Extremity normal capillary refill, no joint enlargement, no calf tenderness and no pedal edema Extremity Narrative: Vascular: DP and PT pulses are weakly palpable to the left lower extremity and are palpable to the right lower extremity. CFT is less than 4 seconds to the right lower extremity but less than 5 seconds to the left lower extremity. Normal temperature gradient bilateral. Hair growth is absent to the digits bilateral. Neurologic: Light sensation intact. Gross sensation intact. Epicritic sensation intact. Motor sensation intact. No focal deficits are noted. Musculoskeletal: Muscle strength 5 of 5 age-appropriate. He does have decreased range of motion of the ankle joint in dorsiflexion with the knee extended without pain or crepitus bilateral. Decreased range of motion of the first metatarsophalangeal joint in dorsiflexion with foot loaded and unloaded without pain or crepitus. Dermatologic: Skin appears well-hydrated. There are some varicosities noted to the lower extremities. There is an ulceration noted to the lateral aspect of the left lower extremity with mixed fibrogranular layer. No signs of infection. Skin no rashes or lesions noted, skin turgor normal and no jaundice Neuro moves all extremities Debridement Note Debridement Note Wound debrided: Left lower extremity Laterality: Left Wound Grade/Stage: Tate stage I Type of Debridement: Excisional debridement Anesthesia Used: 5% Lidocaine Gel Depth: Down to and including healthy tissue and in the subcutaneous layer Percentage of wound debrided: 100 Instrument Used: 5mm curette Tissue Removed: Fibrous, devitalized subcutaneous, biofilm, slough Severity: Fat Layer Exposed Amount of bleeding with debridement: Mild Bleeding Controlled with: Compression and gauze Patient tolerated procedure: Patient tolerated procedure well Post-Debridement Measurements and Additional Note: Post-Debridement Measurements/Treatment PARUL - Nurse 1 - General Ulcer Assessment Start: 07/06/24 08:07 Freq: Status: Active Protocol: MARIANNE Activity Type Activity Date Activity User E-sign Co-sign Detail Recorded Client Recorded Date Recorded By Document 07/06/24 08:08 JF [id number] 07/06/24 08:09 JF Document 07/20/24 08:06 DL [id number] 07/20/24 08:11 DL 07/06/24 07/20/24 08:08 08:06 - Today's Visit Information Type of service Follow-up Visit Follow-up Visit (Physician/BOND CLERK (Physician/BOND CLERK ) ) Arrival Mode Ambulatory Ambulatory Transfer Assistance None Patient Identification Verified (Name & Yes Yes ) Patient Requires Transmission-Based No No Precautions Vital Signs Temperature (97.8 F-99.1 F) 95.7 F L 97.4 F L Temperature Source Temporal Temporal Pulse Rate (60-100) 59 L 67 Pulse Location Monitor Monitor Respiratory Rate (12-18) 16 16 Respiratory rate source Observation Observation Blood Pressure (90/60-120/80) 121/68 H 132/74 H Blood Pressure Mean (mm Hg) 85 93 Source Monitor Monitor Position Semi-Fowlers Blood Pressure Location Right Arm History Since Last Visit- (Skip if this is Patient's initial visit) Have you changed medications since your No No last visit? Any new allergies or adverse reactions No No Had a fall/change in ADL's that may No No increase risk of falls Signs or symptoms of abuse and/or No No neglect since last visit Have you been in the hospital since your No No last visit? Has dressing in place as prescribed Yes Yes Has compression in place as prescribed Yes Yes Has offloadiing in place as prescribed N/A Yes Experienced any changes in pain level or No No management Left Footwear Regular Shoe Regular Shoe Right Footwear Regular Shoe Regular Shoe Pain Scale: 0-10 Numeric Is Patient Pain Free? Yes Yes WC - Nurse 1 - General Ulcer Measurement Start: 07/06/24 08:07 Freq: Status: Active Protocol: Activity Type Activity Date Activity User E-sign Co-sign Detail Recorded Client Recorded Date Recorded By Document 07/06/24 08:08 JF [id number] 07/06/24 08:09 JF Document 07/20/24 08:06 DL [id number] 07/20/24 08:11 DL 07/06/24 07/20/24 08:08 08:06 Wound Center Nurse 1 #3 LT LAT LE -Combined with other wound No -Current Size (cm) - Length 0.1 0.1 -Current Size (cm) - Width 0.1 0.1 -Current Size (cm) - Depth 0.1 0.1 -Total Square Cm 0.01 0.01 -Photo Taken No -Epithelialization Large 67-100% -Tunneling No -Undermining/Tunneling No -Circular Undermining No -Exudate Amt None Present None Present -Wound Margin Flat & Intact Thickened -Granulation Amt None Present (0 None Present (0 %) %) -Slough/Fibrin No -Necrosis Amt Small (1-33%) Large (67-100%) -Necrotic Tissue Type Adherent Slough Eschar -Structure Exposed N/A N/A -Texture (Yuly-wound Skin Appearance) Assessed Scarring -Moisture (Yuly-wound Skin Appearance) Assessed,Dry/ No Abnormality Scaly -Color (Yuly-wound Skin Appearance) Assessed No Abnormality -Temperature (Yuly-wound Skin No Abnormality No Abnormality Appearance) (Pt Warm) (Pt Warm) -Tenderness on Palpation (Yuly-wound No No Skin Appearance) -Ulcer Cleansing Wound Cleanser Soap and Water -Foul Odor after Cleansing No No -Anesthetic Used 5% Lidocaine 5% Lidocaine Gel Gel Lower Limb Edema Present Yes Left Calf (cm) 35 33.5 Left Ankle (cm) 22 21.3 WC - Nurse 2 - General Ulcer CM Notes Start: 07/06/24 08:07 Freq: Status: Active Protocol: Activity Type Activity Date Activity User E-sign Co-sign Detail Recorded Client Recorded Date Recorded By Document 07/06/24 08:26 [facility] [id number] 07/06/24 08:32 [facility] 07/06/24 08:26 Wound Center Nurse 2 #3 LT LAT LE -Time 08:26 -Correct Patient Yes -Correct Side, Site, Position Yes -Correct Procedure Yes -Procedure Performed Yes -Type of Procedure Debridement -Clinical Debridement Subcutaneous -Tissue Removed Subcutaneous -Post Debridement (cm) - Length 1.1 -Post Debridement (cm) - Width 0.6 -Post Debridement (cm) - Depth 0.1 -Total Square (Post) (cm) 0.66 -Area of Debridement (cm) - Length 1.1 -Area of Debridement (cm) - Width 0.6 -Total Square (Area) (cm) 0.66 -Tunneling No -Undermining/Tunneling No -Circular Undermining No -Wound/Ulcer Outcome Not Healed -Ulcer Cleansing Rinsed/ Irrigated with Saline -Foul Odor after Cleansing No -Expiration Date 01/30/29 -Product Lot Number [id number] -Percent Used 100 -Lot number of Saline Used [id number] -Bleeding Controlled with Pressure -Treatment Response Procedure Tolerated Well -Debridement - Subq, 1st 20sq cm No -Apply Skin Sub - 1st 25 sq cm - Legs 1 -Epifix 18mm Disc 3 Pain Scale: 0-10 Numeric Is Patient Pain Free? Yes WC - Nurse 3 - General Ulcer D/C NN Start: 07/06/24 08:07 Freq: Status: Active Protocol: Activity Type Activity Date Activity User E-sign Co-sign Detail Recorded Client Recorded Date Recorded By Document 07/06/24 12:16 DL [id number] 07/06/24 12:17 DL 07/06/24 12:16 Wound Care Center Nurse 3 #3 LT LAT LE -Foul Odor after Cleansing No -Other Dressing Epimesh -Primary Dressing Covered/Secured with Dry Gauze & Roll Gauze, Secured with Tape Left -Tubular Bandage Single Layer -Size of Tubigrip Used Size E -Size E ($) 1 Treatment Response Procedure Tolerated Well Pain Scale: 0-10 Numeric Is Patient Pain Free? Yes WC - Visit Discharge Discharge Condition Stable Ambulatory Status Ambulatory Transportation Private Auto Assessment/Plan Assessment/Plan (1) Non-pressure chronic ulcer of left calf with fat layer exposed: CODE(S): L97.222 - Non-pressure chronic ulcer of left calf with fat layer exposed (2) Venous insufficiency (chronic) (peripheral): CODE(S): I87.2 - Venous insufficiency (chronic) (peripheral) (3) Bilateral edema of lower extremity: CODE(S): R60.0 - Localized edema PLAN: Plan Patient seen and evaluated Pre-debridement: Left: 0.4cm x 0.3cm x 0.1cm Ulceration to the left lower extremity underwent debridement as noted in the clinical panel above. Post-debridement Ulceration to the Left lower extremity ulceration measures 0.5 cm x 0.4 cm x 0.1 cm. No signs of infection. EpiFix graft #7 applied to left lower extremity ulceration base and dressed with Adaptic touch and anchored with Steri-Strips. Dry sterile dressing applied to the lower extremity. Discussed not to get the left lower extremity wet and utilize cast bag when showering. Ulceration demonstrates continued reduction in size versus the previous visit and is nearly healed. He has been approved for EpiFix application for the left lower extremity. Will continue application Venous studies and LEAS were performed for further evaluation due to history of CABG and weakly palpable pulses of the left lower extremity. LEAS demonstrates triphasic PT and DP pulses bilateral. No evidence of arterial occlusive disease. Venous studies demonstrate right popliteal vein incompetence, left Sapho-femoral junction incompetent left lower extremity, right great saphenous vein incompetent below the knee, left great saphenous vein is absent in the thigh but patent and competent below the knee. Results of his vascular studies were discussed with him 05/11/24. Discussed adequate protein intake to aid in wound healing. Andre supplementation was recommended. Recommended continued elevation of the lower extremities at times of rest for aiding in edema control. Tubigrip compression was also applied today. Discussed signs and symptoms of infection. He was instructed that if he notices increasing redness about the ulcerative sites that moves up the leg, if purulent drainage emerges from the wound sites, increasing foul odor of the wound sites, or if he experiences fever greater than 101 degree accompanied by nausea, vomiting, chills that these are signs of a progressing infection and he should report to the ED for IV antibiotics and for further evaluation. He is understanding of this today. The following work up and care recommendations were made: Dressing: EpiFix left lower extremity, Adaptic touch, Steri-Strips. Change outer dressing as needed. Wash: Soap and water right lower extremity; do not get left lower extremity wet and utilize cast bag when showering to keep dressing dry. Tissue growth optimization: EpiFix left lower extremity Offload: To ensure that he does not bump wound sites. Vascular: Palpable DP and PT pulses right lower extremity; weakly palpable DP and PT pulses left lower extremity. Venous studies and LEAS were ordered 04/27/24 for further evaluation, awaiting results. Edema: There is some nonpitting mild pedal edema and some edema about the ulcerative sites. Recommended continued elevation of lower extremities to aid in edema control. Tubigrip compression was also applied. Infection: No signs of infection currently. Pain: May take [id number] Tylenol extra strength for discomfort Host factors: Advanced age I answered all the patient's questions. To return to the wound healing center in 1 week or call sooner if the patient has any questions or concerns.
[2024-07-27 08:09] VITALS: BP 130/76; PULSE 61; RESP 18; TEMP 35.9
--- NOTE | 2024-07-27 08:35 | PCM.WC.PN ---
History of Present Illness Date of Service: 07/27/24 Chief Complaint: Left lower extremity ulceration History of Wound: Patient is a 78-year-old male with PMHx of CABG. He states that in middle of April 2024 he was in a darden in doing some things around the yard and she had when he backed up into the wood splitter and bumped his left lower extremity. States that he did end up having a scab that did form over this wound and he continued applying Bactroban ointment however the wound did continue to breakdown and split open. He did not seek treatment at this time until 2 weeks later when he did suffer a fall and did go to the ED on 04/25/2024 at [facility]. He was instructed to continue to follow-up with his PCP and was placed on Keflex and did complete oral antibiotic treatment however the wound continued to fail to progress in healing. He was then referred to the wound care center for continued aid in his ulcer healing. He states that he does continue to apply the Bactroban ointment and dress it nightly. States that he does not put dressings on it during the daytime and does leave it open to air. Denies N/V/F/chills. Denies further complaints. Subjective Subjective This is a 78-year-old male who presents to the wound care center today for follow-up of Left lower extremity ulceration. Graft remains in place to the left leg and changing outer dressings as needed. 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 Continues to do well with healing. Denies drainage. Denies constitutional symptoms. Denies further complaints. Objective Data Objective Data Vital Signs: Vital Signs Temp Pulse Resp BP 96.6 F L 61 18 130/76 H 07/27/24 08:09 07/27/24 08:09 07/27/24 08:09 07/27/24 08:09 Physical Exam Const alert, oriented x3 and no apparent distress General Appearance: cooperative HEENT normocephalic Eyes General Eye: normal appearance of both eyes Neck General: normal visual inspection Lymph Lymphatic: no lymphadenopathy noted and no lymphedema noted Resp normal respiratory effort Cardio regular rate and regular rhythm Extremity normal capillary refill, no joint enlargement, no calf tenderness and no pedal edema Extremity Narrative: Vascular: DP and PT pulses are weakly palpable to the left lower extremity and are palpable to the right lower extremity. CFT is less than 4 seconds to the right lower extremity but less than 5 seconds to the left lower extremity. Normal temperature gradient bilateral. Hair growth is absent to the digits bilateral. Neurologic: Light sensation intact. Gross sensation intact. Epicritic sensation intact. Motor sensation intact. No focal deficits are noted. Musculoskeletal: Muscle strength 5 of 5 age-appropriate. He does have decreased range of motion of the ankle joint in dorsiflexion with the knee extended without pain or crepitus bilateral. Decreased range of motion of the first metatarsophalangeal joint in dorsiflexion with foot loaded and unloaded without pain or crepitus. Dermatologic: Skin appears well-hydrated. There are some varicosities noted to the lower extremities. There is an ulceration noted to the lateral aspect of the left lower extremity with superficial healthy granular layer. No signs of infection. Skin no rashes or lesions noted, skin turgor normal and no jaundice Neuro moves all extremities Debridement Note Debridement Note Wound debrided: Left lower extremity Laterality: Left Wound Grade/Stage: Tate stage I Type of Debridement: Excisional debridement Anesthesia Used: 5% Lidocaine Gel Depth: Down to and including healthy tissue and in the subcutaneous layer Percentage of wound debrided: 100 Instrument Used: 5mm curette Tissue Removed: Fibrous, devitalized subcutaneous, biofilm, slough Severity: Fat Layer Exposed Amount of bleeding with debridement: Mild Bleeding Controlled with: Compression and gauze Patient tolerated procedure: Patient tolerated procedure well Post-Debridement Measurements and Additional Note: Post-Debridement Measurements/Treatment PARUL - Nurse 1 - General Ulcer Assessment Start: 07/06/24 08:07 Freq: Status: Active Protocol: MARIANNE Activity Type Activity Date Activity User E-sign Co-sign Detail Recorded Client Recorded Date Recorded By Document 07/06/24 08:08 JF [id number] 07/06/24 08:09 JF Document 07/20/24 08:06 DL [id number] 07/20/24 08:11 DL Document 07/27/24 08:09 DL [id number] 07/27/24 08:17 DL 07/06/24 07/20/24 07/27/24 08:08 08:06 08:09 PARUL - Today's Visit Information Type of service Follow-up Visit Follow-up Visit Follow-up Visit (Physician/NETWORK CONTROLLER (Physician/NETWORK CONTROLLER (Physician/NETWORK CONTROLLER ) ) ) Arrival Mode Ambulatory Ambulatory Ambulatory Transfer Assistance None None Patient Identification Verified (Name & Yes Yes Yes ) Patient Requires Transmission-Based No No No Precautions Vital Signs Temperature (97.8 F-99.1 F) 95.7 F L 97.4 F L 96.6 F L Temperature Source Temporal Temporal Temporal Pulse Rate (60-100) 59 L 67 61 Pulse Location Monitor Monitor Monitor Respiratory Rate (12-18) 16 16 18 Respiratory rate source Observation Observation Observation Blood Pressure (90/60-120/80) 121/68 H 132/74 H 130/76 H Blood Pressure Mean (mm Hg) 85 93 94 Source Monitor Monitor Monitor Position Semi-Fowlers Blood Pressure Location Right Arm History Since Last Visit- (Skip if this is Patient's initial visit) Have you changed medications since your No No No last visit? Any new allergies or adverse reactions No No No Had a fall/change in ADL's that may No No No increase risk of falls Signs or symptoms of abuse and/or No No No neglect since last visit Have you been in the hospital since your No No No last visit? Has dressing in place as prescribed Yes Yes Yes Has compression in place as prescribed Yes Yes Yes Has offloadiing in place as prescribed N/A Yes Yes Experienced any changes in pain level or No No No management Left Footwear Regular Shoe Regular Shoe Regular Shoe Right Footwear Regular Shoe Regular Shoe Regular Shoe Pain Scale: 0-10 Numeric Is Patient Pain Free? Yes Yes Yes WC - Nurse 1 - General Ulcer Measurement Start: 07/06/24 08:07 Freq: Status: Active Protocol: Activity Type Activity Date Activity User E-sign Co-sign Detail Recorded Client Recorded Date Recorded By Document 07/06/24 08:08 JF [id number] 07/06/24 08:09 JF Document 07/20/24 08:06 DL [id number] 07/20/24 08:11 DL Document 07/27/24 08:09 DL [id number] 07/27/24 08:17 DL 07/06/24 07/20/24 07/27/24 08:08 08:06 08:09 Wound Center Nurse 1 #3 LT LAT LE -Combined with other wound No -Current Size (cm) - Length 0.1 0.1 0.1 -Current Size (cm) - Width 0.1 0.1 0.1 -Current Size (cm) - Depth 0.1 0.1 0.1 -Total Square Cm 0.01 0.01 0.01 -Photo Taken No Yes -Epithelialization Large 67-100% -Tunneling No -Undermining/Tunneling No -Circular Undermining No -Exudate Amt None Present None Present None Present -Wound Margin Flat & Intact Thickened Thickened -Granulation Amt None Present (0 None Present (0 None Present (0 %) %) %) -Slough/Fibrin No -Necrosis Amt Small (1-33%) Large (67-100%) Small (1-33%) -Necrotic Tissue Type Adherent Slough Eschar Adherent Slough -Structure Exposed N/A N/A N/A -Texture (Yuly-wound Skin Appearance) Assessed Scarring Scarring -Moisture (Yuly-wound Skin Appearance) Assessed,Dry/ No Abnormality No Abnormality Scaly -Color (Yuly-wound Skin Appearance) Assessed No Abnormality No Abnormality -Temperature (Yuly-wound Skin No Abnormality No Abnormality No Abnormality Appearance) (Pt Warm) (Pt Warm) (Pt Warm) -Tenderness on Palpation (Yuly-wound No No No Skin Appearance) -Ulcer Cleansing Wound Cleanser Soap and Water Soap and Water -Foul Odor after Cleansing No No No -Anesthetic Used 5% Lidocaine 5% Lidocaine 5% Lidocaine Gel Gel Gel Lower Limb Edema Present Yes Left Calf (cm) 35 33.5 34 Left Ankle (cm) 22 21.3 20.2 WC - Nurse 2 - General Ulcer CM Notes Start: 07/06/24 08:07 Freq: Status: Active Protocol: Activity Type Activity Date Activity User E-sign Co-sign Detail Recorded Client Recorded Date Recorded By Document 07/06/24 08:26 [facility] [id number] 07/06/24 08:32 BM Document 07/20/24 08:32 [facility] [id number] 07/20/24 08:40 BM Document 07/27/24 08:26 BM [id number] 07/27/24 08:30 [facility] 07/06/24 07/20/24 07/27/24 08:26 08:32 08:26 Wound Center Nurse 2 #3 LT LAT LE -Time 08:26 08:32 08:26 -Correct Patient Yes Yes Yes -Correct Side, Site, Position Yes Yes Yes -Correct Procedure Yes Yes Yes -Procedure Performed Yes Yes Yes -Type of Procedure Debridement Debridement Debridement -Clinical Debridement Subcutaneous Subcutaneous Subcutaneous -Tissue Removed Subcutaneous Subcutaneous Subcutaneous -Post Debridement (cm) - Length 1.1 0.5 0.1 -Post Debridement (cm) - Width 0.6 0.4 0.1 -Post Debridement (cm) - Depth 0.1 0.1 0.1 -Total Square (Post) (cm) 0.66 0.20 0.01 -Area of Debridement (cm) - Length 1.1 0.5 0.1 -Area of Debridement (cm) - Width 0.6 0.4 0.1 -Total Square (Area) (cm) 0.66 0.20 0.01 -Tunneling No No No -Undermining/Tunneling No No No -Circular Undermining No No No -Wound/Ulcer Outcome Not Healed Not Healed Not Healed -Ulcer Cleansing Rinsed/ Rinsed/ Rinsed/ Irrigated with Irrigated with Irrigated with Saline Saline Saline -Foul Odor after Cleansing No No No -Bioengineered Tissue No No -Type of Bioengineered Tissue Epifix 18mm Disc -Expiration Date 01/30/29 01/30/29 -Product Lot Number [id number] -Percent Used 100 100 -Lot number of Saline Used [id number] -Bleeding Controlled with Pressure Pressure Pressure -Treatment Response Procedure Procedure Procedure Tolerated Well Tolerated Well Tolerated Well -Debridement - Subq, 1st 20sq cm No No Yes -Apply Skin Sub - 1st 25 sq cm - Legs 1 1 -Epifix 18mm Disc 3 3 Pain Scale: 0-10 Numeric Is Patient Pain Free? Yes Yes Yes - Nurse 3 - General Ulcer D/C NN Start: 07/06/24 08:07 Freq: Status: Active Protocol: Activity Type Activity Date Activity User E-sign Co-sign Detail Recorded Client Recorded Date Recorded By Document 07/06/24 12:16 DL [id number] 07/06/24 12:17 DL Document 07/20/24 08:40 BM [id number] 07/20/24 08:42 BMF 07/06/24 07/20/24 12:16 08:40 Wound Care Center Nurse 3 #3 LT LAT LE -Foul Odor after Cleansing No -Primary Dressing Applied Mepilex Border -Other Dressing Epimesh epifix -Primary Dressing Covered/Secured with Dry Gauze & Roll Gauze, Secured with Tape -Mepilex Border 1 Left -Tubular Bandage Single Layer -Size of Tubigrip Used Size E -Size E ($) 1 michael -Other reapplied pts own single layer tubi Treatment Response Procedure Procedure Tolerated Well Tolerated Well Pain Scale: 0-10 Numeric Is Patient Pain Free? Yes Yes WC - Visit Discharge Discharge Condition Stable Stable Ambulatory Status Ambulatory Ambulatory Transportation Private Auto Private Auto Assessment/Plan Assessment/Plan (1) Non-pressure chronic ulcer of left calf with fat layer exposed: CODE(S): L97.222 - Non-pressure chronic ulcer of left calf with fat layer exposed (2) Venous insufficiency (chronic) (peripheral): CODE(S): I87.2 - Venous insufficiency (chronic) (peripheral) (3) Bilateral edema of lower extremity: CODE(S): R60.0 - Localized edema PLAN: Plan Patient seen and evaluated Pre-debridement: Left: 0.1cm x 0.1cm x 0.1cm Ulceration to the left lower extremity underwent debridement as noted in the clinical panel above. Post-debridement Ulceration to the Left lower extremity ulceration measures 0.1 cm x 0.1 cm x 0.1 cm. No signs of infection. EpiFix graft #7 applied to left lower extremity ulceration base on 07/20/24. We will refrain from application today as the site is very superficial and nearly healed. Dry sterile protective dressing applied to the lower extremity. May remove and wash with soap and water. Will continue protective dressing for next 3 weeks. Ulceration demonstrates continued reduction in size versus the previous visit and is nearly healed with new epithelialized skin. He has been approved for EpiFix application for the left lower extremity. Will continue application if needed at next visit. Venous studies and LEAS were performed for further evaluation due to history of CABG and weakly palpable pulses of the left lower extremity. LEAS demonstrates triphasic PT and DP pulses bilateral. No evidence of arterial occlusive disease. Venous studies demonstrate right popliteal vein incompetence, left Sapho-femoral junction incompetent left lower extremity, right great saphenous vein incompetent below the knee, left great saphenous vein is absent in the thigh but patent and competent below the knee. Results of his vascular studies were discussed with him 05/11/24. Discussed adequate protein intake to aid in wound healing. Andre supplementation was recommended. Recommended continued elevation of the lower extremities at times of rest for aiding in edema control. Tubigrip compression was also applied today. Discussed signs and symptoms of infection. He was instructed that if he notices increasing redness about the ulcerative sites that moves up the leg, if purulent drainage emerges from the wound sites, increasing foul odor of the wound sites, or if he experiences fever greater than 101 degree accompanied by nausea, vomiting, chills that these are signs of a progressing infection and he should report to the ED for IV antibiotics and for further evaluation. He is understanding of this today. The following work up and care recommendations were made: Dressing: Dry sterile dressing/protective dressing for next 3 weeks, may change daily Wash: Soap and water Tissue growth optimization: EpiFix left lower extremity (last application 07/20/2024) Offload: To ensure that he does not bump wound sites. Vascular: Palpable DP and PT pulses right lower extremity; weakly palpable DP and PT pulses left lower extremity. Venous studies and LEAS were ordered 04/27/24 for further evaluation, awaiting results. Edema: There is some nonpitting mild pedal edema and some edema about the ulcerative sites. Recommended continued elevation of lower extremities to aid in edema control. Tubigrip compression was also applied. Infection: No signs of infection currently. Pain: May take [id number] Tylenol extra strength for discomfort Host factors: Advanced age I answered all the patient's questions. To return to the wound healing center in 3 weeks or call sooner if the patient has any questions or concerns.
== END 2024-07-31 23:59 | disposition home or self-care (01) ==
LOC: WC 08:00
PROVIDERS: PCP Family Medicine; Referring Provider Family Medicine; Visit Provider Student in an Organized Health Care Education/Training Program
DX: L97.222 Non-pressure chronic ulcer of left calf with fat layer exposed (principal); R60.0 Localized edema; I87.2 Venous insufficiency (chronic) (peripheral)
CPT/HCPCS: 11042; 15271; Q4186

== ENCOUNTER 2024-08-17 07:56 | Outpatient (RCR) | payer MEDICARE, SELFPAY ==
[2024-08-01 00:44] VITALS: BP 146/73; PULSE 65; RESP 18; TEMP 36.2
[2024-08-17 08:12] VITALS: BP 137/77; PULSE 58; RESP 18; TEMP 35.8
--- NOTE | 2024-08-17 08:36 | PCM.WC.PN ---
History of Present Illness Date of Service: 08/17/24 Chief Complaint: Left lower extremity ulceration History of Wound: Patient is a 78-year-old male with PMHx of CABG. He states that in middle of April 2024 he was in a darden in doing some things around the yard and she had when he backed up into the wood splitter and bumped his left lower extremity. States that he did end up having a scab that did form over this wound and he continued applying Bactroban ointment however the wound did continue to breakdown and split open. He did not seek treatment at this time until 2 weeks later when he did suffer a fall and did go to the ED on 04/25/2024 at [facility]. He was instructed to continue to follow-up with his PCP and was placed on Keflex and did complete oral antibiotic treatment however the wound continued to fail to progress in healing. He was then referred to the wound care center for continued aid in his ulcer healing. He states that he does continue to apply the Bactroban ointment and dress it nightly. States that he does not put dressings on it during the daytime and does leave it open to air. Denies N/V/F/chills. Denies further complaints. Subjective Subjective This is a 78-year-old male who presents to the wound care center today for follow-up of Left lower extremity ulceration. States his wound is healed. Denies constitutional symptoms. Denies further complaints. Objective Data Objective Data Vital Signs: Vital Signs Temp Pulse Resp BP 96.4 F L 58 L 18 137/77 H 08/17/24 08:12 08/17/24 08:12 08/17/24 08:12 08/17/24 08:12 Physical Exam Const alert, oriented x3 and no apparent distress General Appearance: cooperative HEENT normocephalic Eyes General Eye: normal appearance of both eyes Neck General: normal visual inspection Lymph Lymphatic: no lymphadenopathy noted and no lymphedema noted Resp normal respiratory effort Cardio regular rate and regular rhythm Extremity Extremity Narrative: Vascular: DP and PT pulses are weakly palpable to the left lower extremity and are palpable to the right lower extremity. CFT is less than 4 seconds to the right lower extremity but less than 5 seconds to the left lower extremity. Normal temperature gradient bilateral. Hair growth is absent to the digits bilateral. Neurologic: Light sensation intact. Gross sensation intact. Epicritic sensation intact. Motor sensation intact. No focal deficits are noted. Musculoskeletal: Muscle strength 5 of 5 age-appropriate. He does have decreased range of motion of the ankle joint in dorsiflexion with the knee extended without pain or crepitus bilateral. Decreased range of motion of the first metatarsophalangeal joint in dorsiflexion with foot loaded and unloaded without pain or crepitus. Dermatologic: Skin appears well-hydrated. There are some varicosities noted to the lower extremities. Ulceration noted to the lateral aspect of the left lower extremity has healed. No signs of infection. Skin no rashes or lesions noted, skin turgor normal and no jaundice Neuro moves all extremities Debridement Note Debridement Note No debridement was completed: No debridement was completed today Post-Debridement Measurements and Additional Note: Post-Debridement Measurements/Treatment - Nurse 1 - General Ulcer Assessment Start: 08/17/24 08:12 Freq: Status: Active Protocol: PARUL.[place] Activity Type Activity Date Activity User E-sign Co-sign Detail Recorded Client Recorded Date Recorded By Document 08/17/24 08:12 DL [id number] 08/17/24 08:15 DL 08/17/24 08:12 - Today's Visit Information Type of service Follow-up Visit (Physician/STRATEGIC CLIENT EXECUTIVE ) Arrival Mode Ambulatory Transfer Assistance None Patient Identification Verified (Name & Yes ) Patient Requires Transmission-Based No Precautions Vital Signs Temperature (97.8 F-99.1 F) 96.4 F L Temperature Source Temporal Pulse Rate (60-100) 58 L Pulse Location Monitor Respiratory Rate (12-18) 18 Respiratory rate source Observation Blood Pressure (90/60-120/80) 137/77 H Blood Pressure Mean (mm Hg) 97 Source Monitor History Since Last Visit- (Skip if this is Patient's initial visit) Have you changed medications since your No last visit? Any new allergies or adverse reactions No Had a fall/change in ADL's that may No increase risk of falls Signs or symptoms of abuse and/or No neglect since last visit Have you been in the hospital since your No last visit? Has dressing in place as prescribed Yes Has compression in place as prescribed No Has offloadiing in place as prescribed Yes Experienced any changes in pain level or No management Pain Scale: 0-10 Numeric Is Patient Pain Free? Yes - Nurse 1 - General Ulcer Measurement Start: 08/17/24 08:12 Freq: Status: Active Protocol: Activity Type Activity Date Activity User E-sign Co-sign Detail Recorded Client Recorded Date Recorded By Document 08/17/24 08:12 [id number] 08/17/24 08:15 DL 08/17/24 08:12 Wound Center Nurse 1 #3 LT LAT LE -Current Size (cm) - Length 0 -Current Size (cm) - Width 0 -Current Size (cm) - Depth 0 -Total Square Cm 0 -Photo Taken Yes -Exudate Amt None Present -Wound Margin Flat & Intact -Granulation Amt Large (67-100%) -Granulation Quality [place] -Necrosis Amt None Present (0 %) -Structure Exposed N/A -Texture (Yuly-wound Skin Appearance) Scarring -Moisture (Yuly-wound Skin Appearance) No Abnormality -Color (Yuly-wound Skin Appearance) No Abnormality -Temperature (Yuly-wound Skin No Abnormality Appearance) (Pt Warm) -Ulcer Cleansing Rinsed/ Irrigated with Saline -Foul Odor after Cleansing No -Wound Comment(s) Remains healed WC - Nurse 2 - General Ulcer CM Notes Start: 08/17/24 08:12 Freq: Status: Active Protocol: Activity Type Activity Date Activity User E-sign Co-sign Detail Recorded Client Recorded Date Recorded By Document 08/17/24 08:29 [facility] [id number] 08/17/24 08:31 [facility] 08/17/24 08:29 Wound Center Nurse 2 -Post Debridement (cm) - Length 0 -Post Debridement (cm) - Width 0 -Post Debridement (cm) - Depth 0 -Total Square (Post) (cm) 0 -Area of Debridement (cm) - Length 0 -Wound/Ulcer Outcome Healed- Epithelialized -Bleeding Controlled with NA Pain Scale: 0-10 Numeric Is Patient Pain Free? Yes Assessment/Plan Assessment/Plan (1) Non-pressure chronic ulcer of left calf with fat layer exposed: CODE(S): L97.222 - Non-pressure chronic ulcer of left calf with fat layer exposed (2) Venous insufficiency (chronic) (peripheral): CODE(S): I87.2 - Venous insufficiency (chronic) (peripheral) (3) Bilateral edema of lower extremity: CODE(S): R60.0 - Localized edema PLAN: Plan Patient seen and evaluated Pre-debridement: Left: Healed Ulceration to the left lower extremity has healed today. No signs of infection. He has completed EpiFix graft with total applications of 7 applied to left lower extremity ulceration base with last application on 07/20/24. Venous studies and LEAS were performed for further evaluation due to history of CABG and weakly palpable pulses of the left lower extremity. LEAS demonstrates triphasic PT and DP pulses bilateral. No evidence of arterial occlusive disease. Venous studies demonstrate right popliteal vein incompetence, left Sapho-femoral junction incompetent left lower extremity, right great saphenous vein incompetent below the knee, left great saphenous vein is absent in the thigh but patent and competent below the knee. Results of his vascular studies were discussed with him 05/11/24. With ulceration healed today he is being discharged from the wound care center. I answered all the patient's questions. To return to the wound healing center as needed or call sooner if the patient has any questions or concerns.
== END 2024-08-17 16:06 | disposition home or self-care (01) ==
LOC: WC 07:56
PROVIDERS: PCP Family Medicine; Referring Provider Family Medicine; Visit Provider Student in an Organized Health Care Education/Training Program
DX: Z09 Encounter for follow-up examination after completed treatment for conditions other than malignant neoplasm (principal); I87.2 Venous insufficiency (chronic) (peripheral); R60.0 Localized edema
CPT/HCPCS: 99212; G0463

== ENCOUNTER → 2024-12-29 | Outpatient (CLI) | payer MEDICARE, SELFPAY ==
[2025-01-01 02:07] LABS: Pancreatic Elastase, Fecal > 800 (>200)
[2025-01-01 08:07] LABS: Calprotectin, Stool 82 ug/g (0-120)
== END | disposition home or self-care (01) ==
PROVIDERS: PCP Family Medicine; Referring Provider Student in an Organized Health Care Education/Training Program; Visit Provider Student in an Organized Health Care Education/Training Program
DX: R19.5 Other fecal abnormalities (principal); K58.9 Irritable bowel syndrome, unspecified
CPT/HCPCS: 82653; 83993; 87177; 87209; 87329; 87493

== ENCOUNTER → 2025-07-10 | Outpatient (CLI) | payer MEDICARE, SELFPAY ==
[2025-07-10 11:50] LABS: AST(SGOT) 56 U/L (<=37); Alanine Aminotransfer ALT/SGPT 70 U/L (<=46); Albumin, Serum 4.2 g/dL (3.4-4.8); Alkaline Phosphatase 77 U/L (40-129); Anion Gap 10 (5-15); BUN 16 mg/dL (4-19); BUN/Creat Ratio 17.1 RATIO (10-20); Calcium,Total 9.6 mg/dL (7.6-11.0); Carbon Dioxide 24.1 mmol/L (21.0-32.0); Chloride 106 mmol/L (98-108); Globulin 2.4 g/dL (2.2-4.2); Glucose 107 mg/dL (70-99); Magnesium 2.1 mg/dL (1.5-2.2); Potassium 4.1 mmol/L (3.3-5.1)
== END | disposition home or self-care (01) ==
LOC: LAB 10:27
PROVIDERS: PCP Family Medicine; Referring Provider Internal Medicine Cardiovascular Disease; Visit Provider Internal Medicine Cardiovascular Disease
DX: I10 Essential (primary) hypertension (principal); I25.10 Atherosclerotic heart disease of native coronary artery without angina pectoris; R19.5 Other fecal abnormalities
CPT/HCPCS: 36415; 80053; 83735; 84443

== ENCOUNTER → 2025-08-01 | Outpatient (CLI) | payer MEDICARE, SELFPAY ==
--- NOTE | 2025-08-02 15:19 | STRESSREP ---
Stress Test Report Date: 08/01/2025 Procedure: Pharmacologic stress nuclear imaging study Indications: Coronary artery disease Consent: Per the patient Procedure: The patient underwent pharmacologic (Regadenoson 0.4mg ) evaluation with a peak heart rate of 98 beats per minute (70%predicted maximal heart rate) and a peak blood pressure of 138/74 mmHg. The baseline ECG demonstrated sinus rhythm with left bundle branch block. The peak pharmacologic ECG was nondiagnostic secondary to baseline abnormalities. There were no cardiac dysrhythmias pretest, during pharmacologic infusion, or recovery. There was no complaint of chest discomfort during pharmacologic infusion or recovery. The patient was injected with 14.8 millicuries of technetium 99m Cardiolite and subsequently rest SPECT Cardiolite nuclear imaging was obtained in the horizontal long, vertical long, and short axis views. The patient underwent pharmacologic (Regadenoson) evaluation. The patient was injected with 44.3 millicuries of technetium 99m Cardiolite and subsequently stress SPECT Cardiolite nuclear imaging was obtained in the horizontal long, vertical long, and short axis views. A gated Cardiolite study at peak stress was obtained. The examination was stopped secondary to completion of protocol. Rest and stress SPECT Cardiolite nuclear imaging status post realignment, normalization, and attenuation correction demonstrate no fixed or reversible perfusion defects. There is end systolic thickening and brightening. The gated Cardiolite study demonstrates myocardial thickening and inward wall motion. The reported LVEF is 65%. Impression: 1. Pharmacologic (Regadenoson) evaluation 2. Peak pharmacologic ECG with no diagnostic changes. 3. There were no cardiac dysrhythmias pretest, during pharmacologic infusion, or recovery. 5. Rest and stress SPECT Cardiolite nuclear imaging demonstrate relative uniform tracer uptake and myocardial perfusion appearing within normal limits. 6. The gated Cardiolite study reports an LVEF of 65%. This note was generated with [employer] software. It may contain incorrect words, spelling, and punctuation that were not noted in checking the note before signing.
== END | disposition home or self-care (01) ==
PROVIDERS: PCP Family Medicine; Referring Provider Internal Medicine Cardiovascular Disease; Visit Provider Internal Medicine Cardiovascular Disease
DX: I25.10 Atherosclerotic heart disease of native coronary artery without angina pectoris (principal); R00.1 Bradycardia, unspecified
CPT/HCPCS: 78452; 93017; A9500; A4216; J2785